=== PATIENT | female | born 1945 | race Caucasian/White ===

== ENCOUNTER 2024-04-28 07:10 | Emergency (ER) | payer MEDICARE, SELFPAY ==
[2024-04-28 07:18] VITALS: BP 128/72; PULSE 84; O2SAT 100
[2024-04-28 07:20] VITALS: BP 138/51; PULSE 64; RESP 20; TEMP 36.9; O2SAT 98; BMI 21.4
--- NOTE | 2024-04-28 07:27 | ECG_ITS ---
Test Reason : AMS Blood Pressure : */* mmHG Vent. Rate : 60 BPM Atrial Rate : 60 BPM P-R Int : 148 ms QRS Dur : 70 ms QT Int : 404 ms P-R-T Axes : 9 -38 63 degrees QTcB Int : 404 ms Normal sinus rhythm Left axis deviation Abnormal ECG No previous ECGs available Referred By: Nakia To Electronically Signed By: Terrell Kearns
--- NOTE | 2024-04-28 07:33 | ED_ITS ---
HPI - Psych General Chief Complaint: Altered Mental Status Stated Complaint: UTI Time Seen by Provider: 04/28/24 07:11 Source: patient, EMS and old records reviewed Mode of arrival: EMS Limitations: other (advanced dementia) History of Present Illness ED Provider: ERICA HPI Narrative: 78 yo female advanced dementia, UTI, HTN, HLD, PVD who comes from [facility] with c/o agitation with staff. Staff also noted strong urine odor. The patient is calm and cooperative she has no complaints on arrival and states I didn't do what they wanted. She is agreeable to labs and urine study. just admitted from april 08 to [facility] yesterday - initially admitted for UTI then was placed yesterday finally after prolonged search MD complaint: other Onset (ago): day(s) (1) Duration: resolved prior to arrival History of same: Yes Relieving factors: none Exacerbating factors: other (new facility placement) Context: other Associated psychiatric symptoms: none Associated symptoms: denies other symptoms Treatments prior to arrival: none Related Data Previous Rx's ?Medication ?Instructions ?Recorded cefuroxime axetil 250 mg tablet 250 mg PO BID 7 days #13 tabs 04/28/24 Allergies Allergy/AdvReac Type Severity Reaction Status Date / Time ciprofloxacin Allergy Unknown Verified 04/28/24 07:25 codeine Allergy Unknown Verified 04/28/24 07:25 haloperidol [From Haldol] Allergy Unknown Verified 04/28/24 07:25 oxycodone Allergy Unknown Verified 04/28/24 07:25 risedronate sodium Allergy Unknown Verified 04/28/24 07:25 [From Actonel] tetracycline Allergy Unknown Verified 04/28/24 07:25 trazodone Allergy Unknown Verified 04/28/24 07:25 Review of Systems 2 Review of Systems: ROS unable to be obtained due to altered mental status [facility] Past Medical History Attestation statement: The following information was validated with the patient. Source: old records reviewed Medical History PVD (peripheral vascular disease) Diabetes Diverticulosis Hyperlipidemia HTN (hypertension) UTI (urinary tract infection) Dementia Social History Social History (Updated 04/28/24 @ 07:38 by Nakia To DO) Patient Tobacco Use Status: Tobacco use Unknown Advance Directives: No Advance Directives Information Provided: No Physical Exam 2 Vital Signs: Vital Signs: Last Vital Signs Temp 97.7 F 04/28/24 08:00 Pulse 63 04/28/24 08:00 Resp 16 04/28/24 08:00 BP 108/51 L 04/28/24 08:00 Pulse Ox 98 04/28/24 08:00 O2 Del Method Room Air 04/28/24 08:00 BMI result Body Mass Index 21.4 Appearance: Alert. Oriented X to person. No acute distress. Eyes: Pupils equal, round and reactive to light. ENT: Pharynx normal. Speech slightly stuttered and tangential to different subjects, aphasia Neck: Normal inspection. Neck supple. CVS: Normal heart rate and rhythm. Pulses normal. Respiratory: No respiratory distress. Breath sounds normal. Abdomen: Soft and non-tender. Skin: Skin warm and dry. Normal skin color. Normal skin turgor. Extremities: No lower extremity edema. Neuro: Oriented X 1. No motor deficit. No sensory deficit. CN2-12 intact Medical Decision Making Medical Decision Making [facility] Narrative: 78 yo female advanced dementia, UTI, HTN, HLD, PVD who comes from [facility] with c/o agitation after newly placed there yesterday on arrival here she is calm and cooperative. She just left prolonged bedsearch at [facility] for placement. At this time labs, UA ordered. Daughter aware states her presentation is at baseline including her aphasia Differential Diagnosis Differential Diagnoses: The differential diagnosis associated with the presentation includes dementia with recent change in scenery causing behavioral issues, lyte abnormality, UTI Admission/Observation Consideration of admission/observation: Escalation of care including admission/observation considered not toxic, + UA, will start on ceftin eating Lab Data [facility] Lab Attestation statement: I reviewed the patient's lab results. 04/28/24 07:44 04/28/24 07:44 Labs: Lab Results 04/28/24 04/28/24 Range/Units 07:44 08:54 WBC 6.7 (4.8-10.8) X10*3/uL RBC 4.63 (4.20-5.50) X10*6/uL Hgb 13.9 (12.0-16.0) g/dl Hct 41.3 (37.0-47.0) % MCV 89.2 (80.0-98.0) fL MCH 30.0 (27.0-33.0) pg MCHC 33.7 (31.0-35.0) g/dl RDW 12.6 (11.0-16.0) % Plt Count 174 (160-400) X10*3/uL MPV 10.5 (9.4-12.3) fL Immature Gran % (Auto) 0.9 H (0.0-0.4) % Neut % (Auto) 64.4 (45-73) % Lymph % (Auto) 17.3 L (20-40) % [place] % (Auto) 15.5 H (2-11) % Eos % (Auto) 1.2 (0-4) % Baso % (Auto) 0.7 (0-2) % Lymph # (Auto) 1.2 (1.2-4.9) X10*3/uL [place] # (Auto) 1.0 (0.1-1.2) X10*3/uL Eos # (Auto) 0.1 (0.0-0.4) X10*3/uL Baso # (Auto) 0.1 (0.0-0.2) X10*3/uL Abs Immat Gran (auto) 0.06 H (0.00-0.03) X10*3/uL Absolute Neuts (auto) 4.3 (2.0-8.3) x10*3/uL Absolute Nucleated RBC 0.000 (0.0-0.012) X10*3/uL Nucleated RBC % (auto) 0.0 (0.0-0.2) /100WBC Sodium 143 (135-145) mmol/L Potassium 3.9 (3.3-5.1) mmol/L Chloride 108 (96-108) mmol/L Carbon Dioxide 30 H (22-29) mmol/L Anion Gap 9 L (12-20) BUN 23 H (9-16) mg/dL Creatinine 0.76 (0.5-1.4) mg/dL Estim Creat Clear Calc 54.8 Estimated GFR > 60 Random Glucose 108 (60-115) mg/dL Calcium 9.9 (8.4-10.2) mg/dL Magnesium 2.1 (1.6-2.6) mg/dL Urine Color Yellow Urine Appearance Turbid Urine pH 5.5 (5.0-9.0) Ur Specific [place] 1.025 (1.005-1.025) Urine Protein Trace (Neg-Trace) mg/dL Urine Glucose (UA) Negative (Negative) mg/dL Urine Ketones Trace (Negative) mg/dL Urine Blood Trace H (Negative) Urine Nitrite Negative (Negative) Ur Leukocyte Esterase Large (3+) H (Negative) Urine RBC 0-2 (0-2) /HPF Urine WBC >50 H (0-5) /HPF Ur Squamous Epith Cells 3-5 (0-2) /HPF Urine Bacteria 4+ (None Seen) Hyaline Casts 0-2 (0-2) /LPF Independent Interpretation I performed an independent interpretation of an: EKG Interpretation: Rate: 60 Rhythm: NSR [place]: left Normal P waves. Normal JACQUI. Normal QRS complex. ST T wave : flat t waves aVL, no SIMONA qTC: 404 prior studies: no prior The study has been interpreted contemporaneously by me. . Independent Historian Clinical information obtained from an independent historian. History obtained from or confirmed by: EMS and Other (daughter) External Record Review External record reviewed: Outpatient record Prescription Management I considered prescription management with: Antibiotic Discharge Plan Discharge Clinical Impression: Acute UTI Dementia Qualifiers: Dementia type: Alzheimer's Alzheimer's disease onset: unspecified onset D ementia severity: severe Dementia behavioral or psychological symptom: with other behavioral disturbance Qualified Code(s): G30.9 - Alzheimer's disease, unspecified Patient Disposition: Xfer SNF Instructions: Urinary Tract Infection in Women (ED) Additional Instructions: labs reassuring ate breakfast calm and cooperative given first dose of ceftin here should be on 250mg BID for 7 days return for any worsening symptoms or concerns. Prescriptions: New cefuroxime axetil 250 mg tablet 250 mg PO BID 7 Days Qty: 13 0RF Print Language: Luxembourger
[2024-04-28 07:47] LABS: MANUAL DIFF FLAG NO
[2024-04-28 07:50] LABS: Basophils Absolute Auto 0.1 X10*3/uL (0.0-0.2); Basophils Percent Auto 0.7 % (0-2); Eosinophils Absolute Auto 0.1 X10*3/uL (0.0-0.4); Eosinophils Percent Auto 1.2 % (0-4); Hematocrit 41.3 % (37.0-47.0); Hemoglobin 13.9 g/dl (12.0-16.0); Imm Gran Abs Auto 0.06 X10*3/uL (0.00-0.03); Imm Gran Pct Auto 0.9 % (0.0-0.4); Lymphocytes Absolute Auto 1.2 X10*3/uL (1.2-4.9); Lymphocytes Percent Auto 17.3 % (20-40); Mean Corpuscular HGB Conc 33.7 g/dl (31.0-35.0); Mean Corpuscular Volume 89.2 fL (80.0-98.0); Mean Platelet Volume 10.5 fL (9.4-12.3); Monocytes Percent Auto 15.5 % (2-11); Neutrophils Absolute Auto 4.3 x10*3/uL (2.0-8.3); Neutrophils Percent Auto 64.4 % (45-73); Platelet Count 174 X10*3/uL (160-400); Red Blood Count 4.63 X10*6/uL (4.20-5.50); Red Cell Distribution Width 12.6 % (11.0-16.0); White Blood Count 6.7 X10*3/uL (4.8-10.8)
[2024-04-28 08:00] VITALS: BP 108/51; PULSE 63; RESP 16; TEMP 36.5; O2SAT 98
[2024-04-28 08:07] LABS: Anion Gap 9 (12-20); Blood Urea Nitrogen 23 mg/dL (9-16); Calcium 9.9 mg/dL (8.4-10.2); Carbon Dioxide 30 mmol/L (22-29); Chloride 108 mmol/L (96-108); Creatinine Clr Calc Pharmacy 54.8; Estimated Glomerular Filt Rate > 60; Glucose Random 108 mg/dL (60-115); Magnesium 2.1 mg/dL (1.6-2.6); Potassium 3.9 mmol/L (3.3-5.1); Sodium 143 mmol/L (135-145)
[2024-04-28 08:59] LABS: Appearance Urine Turbid; Color Urine Yellow; Glucose Urine UA Negative (Negative); Leukocyte Esterase Urine Large (3+) (Negative); Nitrite Urine Negative (Negative); PH 5.5 (5.0-9.0); Specific Gravity - Urine 1.025 (1.005-1.025); UMIC TRIGGER UACC YES; Urine Blood Trace (Negative); Urine Ketones Trace mg/dL (Negative); Urine Protein Trace mg/dL (Neg-Trace)
[2024-04-28 09:03] LABS: Bacteria Urine 4+ (None Seen); Hyaline Casts Urine 0-2 /LPF (0-2); RBC Urine 0-2 /HPF (0-2); UACC Culture Trigger YES; WBC Urine >50 /HPF (0-5)
[2024-04-28] MEDS: cefuroxime axetiL 250 MG TABLET PO (09:17)
[2024-04-28 09:55] VITALS: BP 152/60; PULSE 67; RESP 16; TEMP 36.4; O2SAT 99
--- NOTE | 2024-04-28 09:58 | PC.NURSE ---
patient has remained calm and cooperative during ED visit. patient is sitting in recliner watching tv. patient fed breakfast, ambulates with steady gait. medicated per APR
--- NOTE | 2024-04-28 10:16 | PC.NURSE ---
patient report given to zoey at [facility], report given to ems.
== END 2024-04-28 10:18 | disposition skilled nursing facility (03) ==
PROVIDERS: Emergency Provider Emergency Medicine; PCP Family Medicine
DX: N39.0 Urinary tract infection, site not specified (principal); G30.9 Alzheimer's disease, unspecified; F02.C11 Dementia in other diseases classified elsewhere, severe, with agitation; E11.9 Type 2 diabetes mellitus without complications; I10 Essential (primary) hypertension; E78.5 Hyperlipidemia, unspecified; Z87.891 Personal history of nicotine dependence
CPT/HCPCS: 36415; 80048; 81001; 83735; 85025; 87086; 87088; 87186; 93005; 99283; 99284

== ENCOUNTER → 2024-04-28 07:27 | Outpatient (BNV) | payer MEDICARE, SELFPAY | PROVIDERS: Emergency Provider Emergency Medicine; PCP Family Medicine; Visit Provider Internal Medicine Cardiovascular Disease | DX: R94.31 Abnormal electrocardiogram [ECG] [EKG] (principal); R41.82 Altered mental status, unspecified | CPT/HCPCS: 93010 ==

== ENCOUNTER 2024-05-01 16:13 | Emergency (ER) | payer MEDICARE, SELFPAY ==
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
[2024-05-01 16:22] VITALS: BP 116/49; BP 131/64; PULSE 62; PULSE 66; RESP 16; TEMP 36.1; O2SAT 97; BMI 24.8
--- NOTE | 2024-05-01 16:48 | ECG_ITS ---
Test Reason : FALL Blood Pressure : */* mmHG Vent. Rate : 61 BPM Atrial Rate : 61 BPM P-R Int : 162 ms QRS Dur : 74 ms QT Int : 410 ms P-R-T Axes : 39 -28 56 degrees QTcB Int : 412 ms Normal sinus rhythm Normal ECG When compared with ECG of 28-Apr-2024 07:36, No significant change was found Referred By: Seth Worthington Electronically Signed By: LIYAH WRIGHT MD
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
[2024-05-01 17:30] LABS: MANUAL DIFF FLAG NO
[2024-05-01 17:33] LABS: Basophils Percent Auto 0.6 % (0-2); Eosinophils Absolute Auto 0.1 X10*3/uL (0.0-0.4); Eosinophils Percent Auto 1.2 % (0-4); Hematocrit 42.7 % (37.0-47.0); Hemoglobin 14.2 g/dl (12.0-16.0); Imm Gran Abs Auto 0.03 X10*3/uL (0.00-0.03); Imm Gran Pct Auto 0.5 % (0.0-0.4); Lymphocytes Absolute Auto 1.3 X10*3/uL (1.2-4.9); Lymphocytes Percent Auto 20.2 % (20-40); Mean Corpuscular HGB Conc 33.3 g/dl (31.0-35.0); Mean Corpuscular Volume 90.3 fL (80.0-98.0); Mean Platelet Volume 10.7 fL (9.4-12.3); Monocytes Absolute Auto 0.9 X10*3/uL (0.1-1.2); Monocytes Percent Auto 13.6 % (2-11); Neutrophils Absolute Auto 4.1 x10*3/uL (2.0-8.3); Neutrophils Percent Auto 63.9 % (45-73); Platelet Count 174 X10*3/uL (160-400); Red Blood Count 4.73 X10*6/uL (4.20-5.50); Red Cell Distribution Width 12.9 % (11.0-16.0); White Blood Count 6.5 X10*3/uL (4.8-10.8)
[2024-05-01 17:55] LABS: Alanine Aminotransferase 50 U/L (0-31); Alkaline Phosphatase 55 U/L (39-117); Anion Gap 11 (12-20); Aspartate Amino Transferase 54 U/L (5-31); Bilirubin Total 0.7 mg/dL (0.0-1.0); Blood Urea Nitrogen 14 mg/dL (9-16); Calcium 9.9 mg/dL (8.4-10.2); Carbon Dioxide 29 mmol/L (22-29); Chloride 108 mmol/L (96-108); Creatinine Clr Calc Pharmacy 69.3; Estimated Glomerular Filt Rate > 60; Glucose Random 107 mg/dL (60-115); Lipase 19 U/L (8-78); Potassium 3.6 mmol/L (3.3-5.1); Sodium 144 mmol/L (135-145)
[2024-05-01 18:00] LABS: B Type Natriuretic Peptide 73 pg/mL (<100)
[2024-05-01 18:08] LABS: Influenza A PCR NEGATIVE (Negative); Influenza B PCR NEGATIVE (Negative); Resp Syncy Virus RNA Qual PCR NEGATIVE (Negative); SARS COV2 PCR INHOUSE NEGATIVE (Negative)
[2024-05-01 21:40] VITALS: RESP 16
[2024-05-02 02:10] VITALS: BP 114/54; PULSE 62; RESP 16; TEMP 36.4; O2SAT 98
[2024-05-02 04:15] VITALS: BP 114/54; PULSE 62; RESP 16; TEMP 36.4; O2SAT 98
== END 2024-05-02 03:32 | disposition home or self-care (01) ==
PROVIDERS: Physician Assistant; Emergency Provider Emergency Medicine; PCP Family Medicine
DX: S09.90XA Unspecified injury of head, initial encounter (principal); W19.XXXA Unspecified fall, initial encounter; Y93.9 Activity, unspecified; Y92.89 Other specified places as the place of occurrence of the external cause; Y99.9 Unspecified external cause status; Z03.818 Encounter for observation for suspected exposure to other biological agents ruled out
CPT/HCPCS: 0241U; 70450; 72125; 80053; 83690; 83880; 85025; 93005; 99284

== ENCOUNTER → 2024-05-01 16:48 | Outpatient (BNV) | payer MEDICARE, SELFPAY | PROVIDERS: Emergency Provider Emergency Medicine; Visit Provider Radiology Diagnostic Radiology | DX: S09.90XA Unspecified injury of head, initial encounter (principal); W19.XXXA Unspecified fall, initial encounter | CPT/HCPCS: 70450; 72125 ==

== ENCOUNTER → 2024-05-01 16:48 | Outpatient (BNV) | payer MEDICARE, SELFPAY | PROVIDERS: Emergency Provider Emergency Medicine; PCP Family Medicine; Visit Provider Internal Medicine Cardiovascular Disease | DX: S09.90XA Unspecified injury of head, initial encounter (principal); W19.XXXA Unspecified fall, initial encounter | CPT/HCPCS: 93010 ==

== ENCOUNTER 2024-05-18 08:32 | Inpatient (IN) | payer MEDICARE, SELFPAY ==
[2024-05-18 08:59] VITALS: BP 153/56; PULSE 70; RESP 18; TEMP 36.1; O2SAT 100; BMI 19.9
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
[2024-05-18 09:33] LABS: MANUAL DIFF FLAG NO
[2024-05-18 09:37] LABS: Basophils Absolute Auto 0.1 X10*3/uL (0.0-0.2); Basophils Percent Auto 0.8 % (0-2); Eosinophils Absolute Auto 0.1 X10*3/uL (0.0-0.4); Eosinophils Percent Auto 1.7 % (0-4); Hematocrit 39.9 % (37.0-47.0); Hemoglobin 13.3 g/dl (12.0-16.0); Imm Gran Abs Auto 0.02 X10*3/uL (0.00-0.03); Imm Gran Pct Auto 0.3 % (0.0-0.4); Lymphocytes Absolute Auto 0.8 X10*3/uL (1.2-4.9); Lymphocytes Percent Auto 13.9 % (20-40); Mean Corpuscular HGB Conc 33.3 g/dl (31.0-35.0); Mean Corpuscular Hemoglobin 30.3 pg (27.0-33.0); Mean Corpuscular Volume 90.9 fL (80.0-98.0); Mean Platelet Volume 10.2 fL (9.4-12.3); Monocytes Absolute Auto 0.6 X10*3/uL (0.1-1.2); Monocytes Percent Auto 10.1 % (2-11); Neutrophils Absolute Auto 4.3 x10*3/uL (2.0-8.3); Neutrophils Percent Auto 73.2 % (45-73); Platelet Count 175 X10*3/uL (160-400); Red Blood Count 4.39 X10*6/uL (4.20-5.50); Red Cell Distribution Width 13.6 % (11.0-16.0); White Blood Count 5.9 X10*3/uL (4.8-10.8)
[2024-05-18 09:41] LABS: Ammonia 31 umol/L (13-55)
[2024-05-18 10:00] LABS: Alanine Aminotransferase 23 U/L (0-31); Albumin Level 3.6 g/dL (3.5-5.0); Alkaline Phosphatase 44 U/L (39-117); Anion Gap 10 (12-20); Aspartate Amino Transferase 34 U/L (5-31); Blood Urea Nitrogen 15 mg/dL (9-16); Calcium 9.6 mg/dL (8.4-10.2); Carbon Dioxide 28 mmol/L (22-29); Chloride 110 mmol/L (96-108); Creatinine Clr Calc Pharmacy 55.8; Estimated Glomerular Filt Rate > 60; Glucose Random 111 mg/dL (60-115); Potassium 3.8 mmol/L (3.3-5.1); Sodium 144 mmol/L (135-145); Total Protein 5.9 g/dL (6.5-8.0)
[2024-05-18 10:12] LABS: Influenza A PCR NEGATIVE (Negative); Influenza B PCR NEGATIVE (Negative); Resp Syncy Virus RNA Qual PCR NEGATIVE (Negative); SARS COV2 PCR INHOUSE NEGATIVE (Negative)
--- NOTE | 2024-05-18 10:16 | PC.NURSE ---
straight catheterization performed. 150ml of dark, foul smelling urine noted immediately post output. pt did not tolerate well. increased agitated/aggression. multiple staff members needed during intervention. pt turned/repositioned s/p catheterization. specimen obtained/sent to lab.
[2024-05-18 10:22] LABS: Appearance Urine Clear; Color Urine Dark Yellow; Glucose Urine UA Negative (Negative); Leukocyte Esterase Urine Moderate (2+) (Negative); Nitrite Urine Positive (Negative); Specific Gravity - Urine 1.015 (1.005-1.025); UMIC TRIGGER UACC YES; Urine Blood Trace (Negative); Urine Ketones Trace mg/dL (Negative); Urine Protein Negative (Neg-Trace)
--- NOTE | 2024-05-18 10:28 | PHA.MEDREC ---
Addendum entered by Gogo Carbajal mine 05/18/24 10:37: REVIEWED Original Note: Pharmacy Consult ? Medication Reconciliation Pharmacy has completed the medication reconciliation. Utilized list from [facility] to confirm med list.
[2024-05-18] MEDS: cefuroxime axetiL 250 MG TABLET PO (10:40)
[2024-05-18 10:47] LABS: Bacteria Urine 4+ (None Seen); Hyaline Casts Urine 0-2 /LPF (0-2); RBC Urine 0-2 /HPF (0-2); Squamous Epithelial Cell Urine 0-2 /HPF (0-2); UACC Culture Trigger YES; WBC Urine >50 /HPF (0-5)
[2024-05-18] MEDS: Nitrofurantoin Monohyd/M-Cryst 100 MG CAPSULE PO (11:14)
--- OUTSIDE RECORDS SUMMARY | 2024-05-18 11:15 | XMS_ITS | Clinical Summary ---
Author Organization [address] Address [address] [place] [address] Phone Care Team Providers Care Metal Sander And Finisher Name Role Phone Hafsa Trore ARIEL Primary Care Provider +1- [phone] Medications amLODIPine (NORVASC) 5 mg tablet TAKE ONE TABLET BY MOUTH EVERY DAY 90 tablet 03/30/2024 Active Encounters Date Type Department Care Team Description 05/17/2024 Lab Requisition [facility] [address] [place] [id number] Carlos A Orozco MD Unspecified dementia, unspecified severity, without behavioral disturbance, psychotic disturbance, mood disturbance, and anxiety (CMS/HCC); Essential (primary) hypertension; Atherosclerotic heart disease of [place] coronary artery without angina pectoris 05/10/2024 Lab Requisition [facility] [address] [place] [phone] Carlos A Orozco MD Unspecified dementia, unspecified severity, without behavioral disturbance, psychotic disturbance, mood disturbance, and anxiety (CMS/HCC); Essential (primary) hypertension; Atherosclerotic heart disease of [place] coronary artery without angina pectoris 05/03/2024 Lab Requisition [facility] [address] [place] [address] Carlos A Orozco MD Unspecified dementia, unspecified severity, without behavioral disturbance, psychotic disturbance, mood disturbance, and anxiety (CMS/HCC); Essential (primary) hypertension; Atherosclerotic heart disease of [place] coronary artery without angina pectoris from Last 3 Months Surgical History Surgery Date Site/Laterality Comments CARDIAC CATHETERIZATION PROCEDURE: HISTORICAL CARDIAC CATH ANGIOPLASTY PROCEDURE: HISTORICAL ANGIOPLASTY W/STENT BLADDER SUSPENSION PROCEDURE: HISTORICAL BLADDER SUSPENSION CATARACT EXTRACTION Bilateral PROCEDURE: HISTORICAL CATARACT REMOVAL CHOLECYSTECTOMY PROCEDURE: HISTORICAL CHOLECYSTECTOMY HYSTERECTOMY PROCEDURE: HISTORICAL TOTAL HYSTERECTOMY WITH BSO COLONOSCOPY 11/11/2017 PROCEDURE: HISTORICAL COLONOSCOPY OTHER SURGICAL HISTORY 02/16/2013 PROCEDURE: COLONOSCOPY FLEX-PROX SPLEN FLEX; W/STENT PLCMT HYSTERECTOMY PROCEDURE: HISTORICAL HYSTERECTOMY Medical History Medical History Date Comments Family history of cardiovascular disease DX:Family history of cardiovascular disease Chronic ischemic heart disease D X:Chronic ischemic heart disease Essential hypertension DX:Essent ial hypertension Hypercholesterolemia DX:Hypercho lesterolemia Osteoporosis DX:Osteoporosis Diabetes (CMS/HCC) DX:Diabetes ( HCC) Colon polyps DX:Colon polyps Fatty liver DX:Fatty liver Rosacea DX:Rosacea Urinary incontinence DX:Urinary incontinence Angina pectoris DX:Angina pector is (HCC) Diverticulosis DX:Diverticulosi s Glaucoma DX:Glaucoma Tubular adenoma of colon DX:Tubu lar adenoma of colon Family History Medical History Relation Name Comments No Known Problems Brother Thyroid disease Mother Relation Name Status Comments Brother Alive Father Mother Social History Tobacco Use Types Packs/Day Years Used Date Smoking Tobacco: Former Cigarettes Q uit: 02/10/2012 Smokeless Tobacco: Never Alcohol Use Standard Drinks/Week Comments Yes 2 (1 standard drink = 0.6 oz pur e alcohol) Comments Unknown Sex and Gender Information Value Date Recorded Sex Assigned at Not on file Legal Sex Female 1:23 PM EST Gender Identity Not on file Sexual Orientation Not on file Obstetrics History Last Filed Vital Signs Vital Sign Reading Time Taken Comments Blood Pressure 138/80 05/04/2023 9:58 AM EDT Sitting L Arm Pulse 77 05/04/2023 9:58 AM EDT Temperature - - Respiratory Rate - - Oxygen Saturation - - Inhaled Oxygen Concentration - - Weight 66.8 kg (147 lb 4.8 oz) 05/04/2023 9:58 AM EDT Height 167.6 cm (5' 6 ) 05/04/2023 9:58 AM EDT Body Mass Index 23.77 05/04/2023 9:58 AM EDT Plan of Treatment Health Maintenance Due Date Last Done Comments Diabetes: Annual Foot Exam 12/26/1955 Diabetes: Annual Retina Eye Exam 12/26/1955 Zoster Vaccines (2 of 3) 11/06/2012 09/11/2012 Pneumococcal Vaccine: 50+ Years (2 of 2 - PCV) 12/10/2013 12/10/2012 Cholesterol Screening (Lipid Panel) 01/07/2022 Depression Screening 01/07/2022 Falls Risk Assessment 01/07/2022 Hepatitis C Screening 01/07/2022 Medicare Annual Wellness Visit 01/07/2022 Osteoporosis Screening (Bone Density Screening) 01/07/2022 Social Influencers of Health Screening 01/07/2022 DTaP,Tdap,and Td Vaccines (2 - Td or Tdap) 12/10/2022 12/10/2012 Diabetes: Annual Urine Albumin-Creatinine Ratio (uACR) 05/05/2024 Diabetes: Blood Sugar Control Test (HGBA1C) 05/05/2024 Diabetes: Annual GFR (Glomerular Filtration Rate) 05/11/2025 05/11/2024, 05/04/2024 Hypertension/CHF/CAD Annual BMP Blood Test 05/11/2025 05/11/2024, 05/04/2024 RSV Immunization Adult Patients Completed 10/10/2022 COVID-19 Vaccine Completed 10/28/2023, 04/2022, 05/16/2021, Additional history exists Influenza Vaccine Completed 10/28/2023, , 11/08/2021, Additional history exists HIB Vaccines Aged Out No longer eligi ble based on patient's age to complete this topic HPV Vaccines Aged Out No longer eligi ble based on patient's age to complete this topic Hepatitis A Vaccines Aged Out No long er eligible based on patient's age to complete this topic Hepatitis B Vaccines Aged Out No long er eligible based on patient's age to complete this topic IPV Vaccines Aged Out No longer eligi ble based on patient's age to complete this topic MMR Vaccines Aged Out No longer eligi ble based on patient's age to complete this topic Meningococcal ACWY Vaccine Aged Out N o longer eligible based on patient's age to complete this topic Meningococcal B Vaccine Aged Out No l onger eligible based on patient's age to complete this topic RSV Immunization Patients Under 20 months Aged Out No longer eligible based on patient's age to complete this topic Varicella Vaccines Aged Out No longer eligible based on patient's age to complete this topic Procedures Procedure Name Priority Date/Time Associated Diagnosis Comments BASIC METABOLIC PANEL Routine 05/11/2024 6:48 AM EDT Unspecified dementia, unspecified severity, without behavioral disturbance, psychotic disturbance, mood disturbance, and anxiety (CMS/HCC) Essential (primary) hypertension Atherosclerotic heart disease of [place] coronary artery without angina pectoris COMPLETE BLOOD COUNT Routine 05/11/2024 6:48 AM EDT Unspecified dementia, unspecified severity, without behavioral disturbance, psychotic disturbance, mood disturbance, and anxiety (CMS/HCC) Essential (primary) hypertension Atherosclerotic heart disease of [place] coronary artery without angina pectoris BASIC METABOLIC PANEL Routine 05/04/2024 8:13 AM EDT Unspecified dementia, unspecified severity, without behavioral disturbance, psychotic disturbance, mood disturbance, and anxiety (CMS/HCC) Essential (primary) hypertension Atherosclerotic heart disease of [place] coronary artery without angina pectoris COMPLETE BLOOD COUNT Routine 05/04/2024 8:13 AM EDT Unspecified dementia, unspecified severity, without behavioral disturbance, psychotic disturbance, mood disturbance, and anxiety (CMS/HCC) Essential (primary) hypertension Atherosclerotic heart disease of [place] coronary artery without angina pectoris from Last 3 Months Results * (ABNORMAL) Complete blood count (05/11/2024 6:48 AM EDT) Only the most recent of2 resultswithin the time period is included. WBC 8.8 4.8 - 10.8 K/mcL LAB HEMETOLOGY METHOD 05/11/2024 12:44 PM [facility] RBC 4.90(H) 3.80 - 4.80 M/mcL LAB HEMETOLOGY METHOD 05/11/2024 12:44 PM T [facility] Hemoglobin 14.5 11.5 - 16.0 g/dL LAB HEMETOLOGY METHOD 05/11/2024 12:44 PM [facility] Hematocrit 46.0 35.0 - 47.0 % LAB HEMETOLOGY METHOD 05/11/2024 12:44 PM [facility] MCV 94.7 79.0 - 98.0 FL LAB HEMETOLOGY METHOD 05/11/2024 12:44 PM EDT [facility] MCH 29.8 27.0 - 32.0 pcg LAB HEMETOLOGY METHOD 05/11/2024 12:44 PM EDT [facility] MCHC 31.5(L) 32.0 - 37.0 g/dL LAB HEMETOLOGY METHOD 05/11/2024 12:44 PM EDT [facility] RDW 13.6 11.0 - 15.0 % LAB HEMETOLOGY METHOD 05/11/2024 12:44 PM EDT [facility] Platelets 251 130 - 400 K/mcL LAB HEMETOLOGY METHOD 05/11/2024 12:44 PM EDT [facility] MPV 11.1(H) 7.0 - 11.0 FL LAB HEMETOLOGY METHOD 05/11/2024 12:44 PM EDT [facility] NRBC 0.0 <1.0 % LAB HEMETOLOGY METHOD 05/11/2024 12:44 PM EDT [facility] NRBC Absolute 0.00 <0.10 K/mcL LAB HEMETOLOGY METHOD 05/11/2024 12:44 PM EDT [facility] Blood Venous blood specimen / Unknown Venipuncture / Unknown 05/11/2024 6:48 AM EDT 05/11/2024 12:10 PM EDT us Carlos A Orozco MD LAB BLOOD ORDERABLES Final Resul t [facility] [address] [place] [address], * (ABNORMAL) Basic metabolic panel (05/11/2024 6:48 AM EDT) Only the most recent of2 resultswithin the time period is included. Sodium 141 133 - 145 mmol/L LAB CHEMISTRY METHOD 05/11/2024 1:07 PM EDT [facility] Potassium 3.6 3.5 - 5.5 mmol/L LAB CHEMISTRY METHOD 05/11/2024 1:07 PM [facility] Chloride 105 96 - 110 mmol/L LAB CHEMISTRY METHOD 05/11/2024 1:07 PM [facility] CO2 27 21 - 32 mmol/L LAB CHEMISTRY METHOD 05/11/2024 1:07 PM [facility] Anion Gap 9 3 - 11 LAB CHEMISTRY METHOD 05/11/2024 1:07 PM [facility] Glucose 101(H) 70 - 100 mg/dL LAB CHEMISTRY METHOD 05/11/2024 1:07 PM [facility] BUN 17 5 - 25 mg/dL LAB CHEMISTRY METHOD 05/11/2024 1:07 PM [facility] Creatinine 0.64 0.50 - 1.10 mg/dL LAB CHEMISTRY METHOD 05/11/2024 1:07 PM [facility] eGFR 91 >=60 mL/min/1. 73m2 LAB CHEMISTRY METHOD 05/11/2024 1:07 PM [facility] Comment:Calculation based on the??Chronic Kidney Disease Epidemiology Collaboration (CKD-EPI) equation refit??without adjustment for race. BUN/Creatinine Ratio 26.6 LAB CHEMISTRY METHOD 05/11/2024 1:07 PM [facility] Calcium 10.1 8.5 - 10.5 mg/dL LAB CHEMISTRY METHOD 05/11/2024 1:07 PM [facility] Blood Venous blood specimen / Unknown Venipuncture / Unknown 05/11/2024 6:48 AM EDT 05/11/2024 12:10 PM EDT us Carlos A Orozco MD LAB BLOOD ORDERABLES Final Resul t [facility] [address] [place] [address], [place] [phone] from Last 3 Months Insurance MEDICARE Care Teams Metal Sander And Finisher Relationship Specialty Start Date End Date Hafsa Torre NP [address] [place] [address] PCP - General 06/17/21
--- OUTSIDE RECORDS SUMMARY | 2024-05-18 11:15 | XMS_ITS | Encounter Summary ---
Author Organization [facility] [place] Address [id number] [place] [address] Care Team Providers Care Vehicle Damage Appraiser Name Role Phone Hafsa Torre RESIDENCE COUNSELOR Primary Care Provider +1- [phone] Encounter Details Date Type Department Care Team (Late st Contact Info) Description 05/17/2024 Lab Requisition [facility] - Main Lab [address] [facility] [place] [address] Carlos A Orozco MD [address] [place] [address] [address] [place], [address] Unspecified dementia, unspecified severity, without behavioral disturbance, psychotic disturbance, mood disturbance, and anxiety (CMS/HCC); Essential (primary) hypertension; Atherosclerotic heart disease of [place] coronary artery without angina pectoris Social History Tobacco Use Types Packs/Day Years [...] on file Sexual Orientation Not on file documented as of this encounter Plan of Treatment Scheduled Orders Name Type Priority Associated Diagnoses Orde r Schedule Complete blood count Lab Routine Unspecified dementia, unspecified severity, without behavioral disturbance, psychotic disturbance, mood disturbance, and anxiety (CMS/HCC) Essential (primary) hypertension Atherosclerotic heart disease of [place] coronary artery without angina pectoris Ordered: 05/17/2024 Basic metabolic panel Lab Routine Unspecified dementia, unspecified severity, without behavioral disturbance, psychotic disturbance, mood disturbance, and anxiety (CMS/HCC) Essential (primary) hypertension Atherosclerotic heart disease of [place] coronary artery without angina pectoris Ordered: 05/17/2024 documented as of this encounter Visit Diagnoses Diagnosis Unspecified dementia, unspecified severity, without behavioral disturbance, psychotic disturbance, mood disturbance, and anxiety (CMS/[facility]) Essential (primary) hypertension Unspecified essential hypertension Atherosclerotic heart disease of [place] coronary artery without angina pectoris documented in this encounter Care Teams Vehicle Damage Appraiser Relationship Specialty Start Date End Date Hafsa Torre NP [address] [place] [address] PCP - General 06/17/21 documented as of this encounter
--- OUTSIDE RECORDS SUMMARY | 2024-05-18 11:15 | XMS_ITS | Encounter Summary ---
Author Organization [facility] Address [address] [place] [address] Care Team Providers Care Food Sampler Name Role Phone Hafsa Torre STUDIO POTTER Primary Care Provider +1- [phone] Encounter Details Date Type Department Care Team (Late st Contact Info) Description 05/10/2024 Lab Requisition [facility] - [facility] Lab [address] [facility] [address] [place] [address] Carlos A Orozco MD [address] [place] [address] [address] [facility] [address] Unspecified dementia, unspecified severity, without behavioral disturbance, psychotic disturbance, mood disturbance, and anxiety (CMS/HCC); Essential (primary) hypertension; Atherosclerotic heart disease of [place] coronary artery without angina pectoris Social History [...] as of this encounter Plan of Treatment Not on file documented as of this encounter Procedures Procedure Name Priority Date/Time Associated Diagnosis Comments COMPLETE BLOOD COUNT Routine 05/11/2024 6:48 AM EDT Unspecified dementia, unspecified severity, without behavioral disturbance, psychotic disturbance, mood disturbance, and anxiety (CMS/HCC) Essential (primary) hypertension Atherosclerotic heart disease of [place] coronary artery without angina pectoris BASIC METABOLIC PANEL Routine 05/11/2024 6:48 AM EDT Unspecified dementia, unspecified severity, without behavioral disturbance, psychotic disturbance, mood disturbance, and anxiety (CMS/HCC) Essential (primary) hypertension Atherosclerotic heart disease of [place] coronary artery without angina pectoris documented in this encounter Results * (ABNORMAL) Basic metabolic panel (05/11/2024 6:48 AM EDT) Sodium 141 133 - 145 mmol/L LAB CHEMISTRY METHOD 05/11/2024 1:07 PM [facility] Potassium 3.6 3.5 - 5.5 mmol/L LAB CHEMISTRY METHOD 05/11/2024 1:07 PM [facility] Chloride 105 96 - 110 mmol/L LAB CHEMISTRY METHOD 05/11/2024 1:07 PM [facility] CO2 27 21 - 32 mmol/L LAB CHEMISTRY METHOD 05/11/2024 1:07 PM [facility] Anion Gap 9 3 - 11 LAB CHEMISTRY METHOD 05/11/2024 1:07 PM [facility] Glucose 101(H) 70 - 100 mg/dL LAB CHEMISTRY METHOD 05/11/2024 1:07 PM [facility] BUN 17 5 - 25 mg/dL LAB CHEMISTRY METHOD 05/11/2024 1:07 PM [facility] Creatinine 0.64 0.50 - 1.10 mg/dL LAB CHEMISTRY METHOD 05/11/2024 1:07 PM [facility] eGFR 91 >=60 mL/min/1. 73m2 LAB CHEMISTRY METHOD 05/11/2024 1:07 PM [facility] Comment:Calculation based on the??Chronic Kidney Disease Epidemiology Collaboration (CKD-EPI) equation refit??without adjustment for race. BUN/Creatinine Ratio 26.6 LAB CHEMISTRY METHOD 05/11/2024 1:07 PM [facility] Calcium 10.1 8.5 - 10.5 mg/dL LAB CHEMISTRY METHOD 05/11/2024 1:07 PM [facility] Blood Venous blood specimen / Unknown Venipuncture / Unknown 05/11/2024 6:48 AM EDT 05/11/2024 12:10 PM EDT us Carlos A Orozco MD LAB BLOOD ORDERABLES Final Resul t [facility] [address] [place] [address], * (ABNORMAL) Complete blood count (05/11/2024 6:48 AM EDT) WBC 8.8 4.8 - 10.8 K/mcL LAB HEMETOLOGY METHOD 05/11/2024 12:44 PM EDT [facility] RBC 4.90(H) 3.80 - 4.80 M/mcL LAB HEMETOLOGY METHOD 05/11/2024 12:44 PM EDT [facility] Hemoglobin 14.5 11.5 - 16.0 g/dL LAB HEMETOLOGY METHOD 05/11/2024 12:44 PM EDT [facility] Hematocrit 46.0 35.0 - 47.0 % LAB HEMETOLOGY METHOD 05/11/2024 12:44 PM EDT [facility] MCV 94.7 79.0 - 98.0 FL LAB HEMETOLOGY METHOD 05/11/2024 12:44 PM EDT [facility] MCH 29.8 27.0 - 32.0 pcg LAB HEMETOLOGY METHOD 05/11/2024 12:44 PM T [facility] MCHC 31.5(L) 32.0 - 37.0 g/dL LAB HEMETOLOGY METHOD 05/11/2024 12:44 PM EDT [facility] RDW 13.6 11.0 - 15.0 % LAB HEMETOLOGY METHOD 05/11/2024 12:44 PM EDT [facility] Platelets 251 130 - 400 K/mcL LAB HEMETOLOGY METHOD 05/11/2024 12:44 PM EDT [facility] MPV 11.1(H) 7.0 - 11.0 FL LAB HEMETOLOGY METHOD 05/11/2024 12:44 PM EDT [facility] NRBC 0.0 <1.0 % LAB HEMETOLOGY METHOD 05/11/2024 12:44 PM EDT [facility] NRBC Absolute 0.00 <0.10 K/mcL LAB HEMETOLOGY METHOD 05/11/2024 12:44 PM EDT [facility] Blood Venous blood specimen / Unknown Venipuncture / Unknown 05/11/2024 6:48 AM EDT 05/11/2024 12:10 PM EDT us Carlos A Orozco MD LAB BLOOD ORDERABLES Final Resul t [facility] [address] [place] [address], documented in this encounter Visit Diagnoses Diagnosis Unspecified dementia, unspecified severity, without behavioral disturbance, psychotic disturbance, mood disturbance, and anxiety (CMS/HCC) Essential (primary) hypertension Unspecified essential hypertension Atherosclerotic heart disease of [place] coronary artery without angina pectoris documented in this encounter Care Teams Food Sampler Relationship Specialty Start Date End Date Hafsa Torre NP [address] [place] [id number] PCP - General 06/17/21 documented as of this encounter
--- OUTSIDE RECORDS SUMMARY | 2024-05-18 11:15 | XMS_ITS | Encounter Summary ---
Author Organization [facility] Address [id number] [place] [address] Care Team Providers Care Investment Strategist Name Role Phone Hafsa Torre ELEVATOR INSPECTOR Primary Care Provider +1- [phone] Encounter Details Date Type Department Care Team (Late st Contact Info) Description 05/03/[address] [facility] - Main Lab [address] [facility] [place] [address] Carlos A Orozco MD [address] [place] [address] [address] [place], [address] Unspecified dementia, unspecified severity, without behavioral disturbance, psychotic disturbance, mood disturbance, and anxiety (CMS/HCC); Essential (primary) hypertension; Atherosclerotic heart disease of [place] coronary artery without angina pectoris Social History [...] Associated Diagnosis Comments COMPLETE BLOOD COUNT Routine 05/04/2024 8:13 AM EDT Unspecified dementia, unspecified severity, without behavioral disturbance, psychotic disturbance, mood disturbance, and anxiety (CMS/HCC) Essential (primary) hypertension Atherosclerotic heart disease of [place] coronary artery without angina pectoris BASIC METABOLIC PANEL Routine 05/04/2024 8:13 AM EDT Unspecified dementia, unspecified severity, without behavioral disturbance, psychotic disturbance, mood disturbance, and anxiety (CMS/HCC) Essential (primary) hypertension Atherosclerotic heart disease of [place] coronary artery without angina pectoris documented in this encounter Results * (ABNORMAL) Basic metabolic panel (05/04/2024 8:13 AM EDT) Sodium 141 133 - 145 mmol/L LAB CHEMISTRY METHOD 05/04/2024 1:09 PM [facility] Potassium 3.7 3.5 - 5.5 mmol/L LAB CHEMISTRY METHOD 05/04/2024 1:09 PM [facility] Chloride 106 96 - 110 mmol/L LAB CHEMISTRY METHOD 05/04/2024 1:09 PM [facility] CO2 29 21 - 32 mmol/L LAB CHEMISTRY METHOD 05/04/2024 1:09 PM [facility] Anion Gap 6 3 - 11 LAB CHEMISTRY METHOD 05/04/2024 1:09 PM [facility] Glucose 111(H) 70 - 100 mg/dL LAB CHEMISTRY METHOD 05/04/2024 1:09 PM [facility] BUN 16 5 - 25 mg/dL LAB CHEMISTRY METHOD 05/04/2024 1:09 PM [facility] Creatinine 0.74 0.50 - 1.10 mg/dL LAB CHEMISTRY METHOD 05/04/2024 1:09 PM [facility] eGFR 83 >=60 mL/min/1. 73m2 LAB CHEMISTRY METHOD 05/04/2024 1:09 PM [facility] Comment:Calculation based on the??Chronic Kidney Disease Epidemiology Collaboration (CKD-EPI) equation refit??without adjustment for race. BUN/Creatinine Ratio 21.6 LAB CHEMISTRY METHOD 05/04/2024 1:09 PM [facility] Calcium 9.6 8.5 - 10.5 mg/dL LAB CHEMISTRY METHOD 05/04/2024 1:09 PM [facility] Blood Venous blood specimen / Unknown Venipuncture / Unknown 05/04/2024 8:13 AM EDT 05/04/2024 10:46 AM EDT us Carlos A Orozco MD LAB BLOOD ORDERABLES Final Resul t [facility] [address] [place] [address], * (ABNORMAL) Complete blood count (05/04/2024 8:13 AM EDT) WBC 6.6 4.8 - 10.8 K/mcL LAB HEMETOLOGY METHOD 05/04/2024 10:58 AM EDT [facility] RBC 4.80 3.80 - 4.80 M/mcL LAB HEMETOLOGY METHOD 05/04/2024 10:58 AM EDT [facility] Hemoglobin 14.2 11.5 - 16.0 g/dL LAB HEMETOLOGY METHOD 05/04/2024 10:58 AM [facility] Hematocrit 45.1 35.0 - 47.0 % LAB HEMETOLOGY METHOD 05/04/2024 10:58 AM EDT [facility] MCV 94.7 79.0 - 98.0 FL LAB HEMETOLOGY METHOD 05/04/2024 10:58 AM EDT [facility] MCH 29.8 27.0 - 32.0 pcg LAB HEMETOLOGY METHOD 05/04/2024 10:58 AM [facility] MCHC 31.5(L) 32.0 - 37.0 g/dL LAB HEMETOLOGY METHOD 05/04/2024 10:58 AM [facility] RDW 13.1 11.0 - 15.0 % LAB HEMETOLOGY METHOD 05/04/2024 10:58 AM EDT [facility] Platelets 174 130 - 400 K/mcL LAB HEMETOLOGY METHOD 05/04/2024 10:58 AM EDT [facility] MPV 11.5(H) 7.0 - 11.0 FL LAB HEMETOLOGY METHOD 05/04/2024 10:58 AM EDT [facility] NRBC 0.0 <1.0 % LAB HEMETOLOGY METHOD 05/04/2024 10:58 AM EDT [facility] NRBC Absolute 0.00 <0.10 K/mcL LAB HEMETOLOGY METHOD 05/04/2024 10:58 AM EDT [facility] Blood Venous blood specimen / Unknown Venipuncture / Unknown 05/04/2024 8:13 AM EDT 05/04/2024 10:46 AM EDT us Carlos A Orozco MD LAB BLOOD ORDERABLES Final Resul t [facility] [address] [place] [address], documented in this encounter Visit Diagnoses Diagnosis Unspecified dementia, unspecified severity, without behavioral disturbance, psychotic disturbance, mood disturbance, and anxiety (CMS/HCC) Essential (primary) hypertension Unspecified essential hypertension Atherosclerotic heart disease of [place] coronary artery without angina pectoris documented in this encounter Care Teams Investment Strategist Relationship Specialty Start Date End Date Hafsa Torre NP [address] [place] [address] PCP - General 06/17/21 documented as of this encounter
[2024-05-18 11:17] VITALS: BP 147/60; PULSE 65; RESP 18; TEMP 36.8; O2SAT 98
--- NOTE | 2024-05-18 11:20 | PC.NURSE ---
Patient alert and cooperative. Some illogical speak and difficulty understanding and following simple commands. Remains on 15 minute checks. Lungs clear bilat, but with poor effort. Respirations even and non-labored. Abdomen soft, flat, non-tender with positive bowel sounds. Being treated for a UTI. Positive pedal pulses with no edema.
--- NOTE | 2024-05-18 12:21 | PC.NURSE ---
Patients behavior escalated suddenly. Speaking in a tangential, confused manner. Attempting to get oob and disrobe. Noted to be crying regarding some incident she was trying to remember. Able to de-escalate patient and patient more calm at this time. Provider aware.
[2024-05-18 16:04] VITALS: BP 184/52; PULSE 67; RESP 18
--- NOTE | 2024-05-18 16:32 | PC.NURSE ---
Patient requesting to use the bathroom. Patient continues to speak tangentially and illogically but cooperative. Able to ambulate to the bathroom with one person assist
--- NOTE | 2024-05-18 17:09 | PM.PSYCN ---
History of Present Illness Date of Service: 05/18/2024 Chief Complaint: combative behaviors Reason for Consult: combative behaviors Discussed with referring provider: Yes Sources of Information: patient interviewed, chart reviewed and crisis/core team assessment reviewed HPI Narrative: Mrs. Dennison is 78 year-old woman with dementia who resides at [facility]. She was brought via EMS due to increase combative behaviors, entering to other people's room, intrusive and increase aggression. In the ED, pertinent labs include CBC without leukocytosis, no anemia. CMP without electrolyte abnormalities, BUN 15, Cr 0.69, creatinine clearance 55.8. AST 34, ALT 23, ammonia 23, UA with nitrite, leukocytes and bacteria. Pt seen in the ED. She presents as very fearful and anxious. She is not able to tell where she is nor the month or the year. She think she knows this news writer and thanks me for coming to see her. She holds my hand and this seems to calm her down. Her thought process is with derailment and speech is mostly unintelligible. She says just come back like last time. Past Psychiatric History: Inpt: none OP: none Medical Evaluation Reviewed: Yes PENDING SALE TO [facility] Medical History PVD (peripheral vascular disease) Diabetes Diverticulosis Hyperlipidemia HTN (hypertension) UTI (urinary tract infection) Dementia Diagnostics Vital Signs (24Hr): Vital Signs - 24 hr 05/18/24 08:59 05/18/24 11:17 05/18/24 16:04 Temperature 97.0 F 98.2 F Pulse Rate 70 65 67 Respiratory Rate 18 18 18 Blood Pressure 153/56 H 147/60 H 184/52 H Pulse Oximetry 100 98 Oxygen Delivery Method Room Air BMI result Body Mass Index 19.9 Labs 05/18/24 09:24 05/19/24 17:41 Labs: Laboratory Results - last 48 hr 05/18/24 05/18/24 05/18/24 09:24 09:28 10:13 WBC 5.9 RBC 4.39 Hgb 13.3 Hct 39.9 MCV 90.9 MCH 30.3 MCHC 33.3 RDW 13.6 Plt Count 175 MPV 10.2 Immature Gran % (Auto) 0.3 Neut % (Auto) 73.2 H Lymph % (Auto) 13.9 L [place] % (Auto) 10.1 Eos % (Auto) 1.7 Baso % (Auto) 0.8 Lymph # (Auto) 0.8 L [place] # (Auto) 0.6 Eos # (Auto) 0.1 Baso # (Auto) 0.1 Abs Immat Gran (auto) 0.02 Absolute Neuts (auto) 4.3 Absolute Nucleated RBC 0.000 Nucleated RBC % (auto) 0.0 Sodium 144 Potassium 3.8 Chloride 110 H Carbon Dioxide 28 Anion Gap 10 L BUN 15 Creatinine 0.69 Estim Creat Clear Calc 55.8 Estimated GFR > 60 Random Glucose 111 Calcium 9.6 Magnesium 2.0 Total Bilirubin 1.0 AST 34 H ALT 23 Alkaline Phosphatase 44 Ammonia 31 Total Protein 5.9 L Albumin 3.6 Urine Color Dark Yellow Urine Appearance Clear Urine pH 6.0 Ur Specific [place] 1.015 Urine Protein Negative Urine Glucose (UA) Negative Urine Ketones Trace Urine Blood Trace H Urine Nitrite Positive H Ur Leukocyte Esterase Moderate (2+) H Urine RBC 0-2 Urine WBC >50 H Ur Squamous Epith Cells 0-2 Urine Bacteria 4+ Hyaline Casts 0-2 Influenza Type A (PCR) NEGATIVE Influenza Type B (PCR) NEGATIVE RSV RNA Qual (PCR) NEGATIVE SARS-CoV-2 RNA (RT-PCR) NEGATIVE Mental Status Exam Mental Status Exam Narrative: Appearance: thin, cachectic, anxious, shaking Behavior: cooperative Psychomotor: no agitation or retardation noted Speech: Medications Medications Current Medications Acetaminophen (Acetaminophen 325 Mg Tablet) 650 mg PO Q6H PRN PRN Reason: Pain, Mild (Pain Scale 1-3) Amlodipine Besylate (Amlodipine Besylate 5 Mg Tablet) 5 mg PO DAILY [facility]; Protocol Aspirin (Aspirin Enteric Coated 81 Mg Tablet.) 81 mg PO DAILY [facility] Atorvastatin Calcium (Atorvastatin Calcium 20 Mg Tablet) 20 mg PO DAILY [facility] Bisacodyl (Bisacodyl 10 Mg Supp.Rect) 10 mg MN DAILY PRN PRN Reason: Constipation Cyanocobalamin (Cyanocobalamin (Vitamin B-12) 1,000 Mcg Tablet) 1,000 mcg PO DAILY [facility] Divalproex Sodium (Divalproex Sodium 250 Mg Tablet.) 250 mg PO BID [facility] Donepezil HCl (Donepezil Hcl 5 Mg Tablet) 5 mg PO DAILY [facility] Melatonin (Melatonin 3 Mg Tablet) 9 mg PO BEDTIME PRN PRN Reason: Insomnia Mirtazapine (Mirtazapine 7.5 Mg Tablet) 7.5 mg PO BEDTIME [facility] Nitrofurantoin Macrocrystals (Nitrofurantoin Monohyd/M-Cryst 100 Mg Capsule) 100 mg PO BID [facility] Stop: 05/25/24 10:59 Last Admin: 05/18/24 11:14 Dose: 100 mg Quetiapine Fumarate (Quetiapine Fumarate 25 Mg Tablet) 25 mg PO BEDTIME [facility] Sodium Biphosphate/Sodium Phosphate (Sodium Phosphate,[place]-Dibasic 133 Ml Enema) 118 ml MN DAILY PRN PRN Reason: CONSTIPATION Allergies Allergies Allergy/AdvReac Type Severity Reaction Status Date / Time ciprofloxacin Allergy Unknown Verified 05/18/24 09:00 codeine Allergy Unknown Verified 05/18/24 09:00 haloperidol [From Haldol] Allergy Unknown Verified 05/18/24 09:00 oxycodone Allergy Unknown Verified 05/18/24 09:00 risedronate sodium Allergy Unknown Verified 05/18/24 09:00 [From Actonel] tetracycline Allergy Unknown Verified 05/18/24 09:00 trazodone Allergy Unknown Verified 05/18/24 09:00 Assessment & Plan Assessment & Plan (1) Major neurocognitive disorder: Status: Acute Code(s): F03.90 - Unspecified dementia, unspecified severity, without behavioral disturbance, psychotic disturbance, mood disturbance, and anxiety Plan Inpt level of care for stabilization, safety and containment- BP elevated, ordered amlodipine 5mg po daily will hold depakote for now- give one time dose of ativan for anxiety 0.5mg po Total time managing care of this patient today ____ minutes.
[2024-05-18] MEDS: amLODIPine Besylate 5 MG TABLET PO (17:27)
[2024-05-18] MEDS: LORazepam 0.5 MG TABLET PO (17:27)
--- NOTE | 2024-05-18 17:53 | MHC.CARE ---
Patient evaluated by the CARE Team and psychiatric provider, Kenzie Chang NP, disposition determined to be inpatient psychiatric treatment. ED provider, VIDAL Baer
--- NOTE | 2024-05-18 19:59 | MHC.EDTECH ---
rn aware pt refused vitals
--- NOTE | 2024-05-18 23:05 | MHC.EDTECH ---
assumed care of pt @[id number]
--- NOTE | 2024-05-18 23:27 | PC.NURSE ---
This typewriters functional tester assumed care of this Pt at 2300. Pt appears to be sleeping, equal, non-labored respirations. 1:1 sitter at bedside.
--- NOTE | 2024-05-19 05:33 | PC.NURSE ---
Pt attempting to get OOB, swatting at staff, no answering simple yes on no questions. Pt ambulated to bedside commode with two assist, unsteady gait. Able to void.
--- NOTE | 2024-05-19 06:43 | MHC.EDTECH ---
Attempted to update vitals and pt started to get agitated and confused. With RN assist pt was helped to bedside commode. Pt was not able to void at this time. Pt back in bed and resting quietly. Unable to obtain vitals. RN aware
[2024-05-19 06:45] VITALS: RESP 14
--- NOTE | 2024-05-19 07:57 | ECG_ITS ---
Test Reason : ? prolonged qtc Blood Pressure : */* mmHG Vent. Rate : 65 BPM Atrial Rate : 65 BPM P-R Int : 154 ms QRS Dur : 66 ms QT Int : 406 ms P-R-T Axes : 47 -29 34 degrees QTcB Int : 422 ms Normal sinus rhythm Otherwise normal ECG When compared with ECG of 01-May-2024 17:35, No significant changes seen Referred By: Generic ED Physician Electronically Signed By: Terrell Kearns
[2024-05-19 08:16] VITALS: BP 124/43; PULSE 69; RESP 16; TEMP 37; O2SAT 97
[2024-05-19 08:16] LABS: Amphetamine Screen Urine Not Detected (Not Detect); Barbiturates, Urine Not Detected (Not Detect); Benzodiazepines Screen Urine Not Detected (Not Detect); Buprenorphine Scr Not Detected (Not Detect); Cannabinoid Screen Urine Not Detected (Not Detect); Cocaine Screen Urine Not Detected (Not Detect); Fentanyl, urine Not Detected (Not Detect); Methadone Screen, Urine Not Detected (Not Detect); Opiate Screen Urine Not Detected (Not Detect); Oxycodone Screen Urine Not Detected (Not Detect); Phencyclidine Screen Urine Not Detected (Not Detect)
[2024-05-19 08:21] VITALS: BP 124/43
[2024-05-19] MEDS: Atorvastatin Calcium 20 MG TABLET PO (08:21)
[2024-05-19] MEDS: Cyanocobalamin (Vitamin B-12) 1,000 MCG TABLET 1000 MCG PO (08:21)
[2024-05-19] MEDS: amLODIPine Besylate 5 MG TABLET PO (08:21)
[2024-05-19] MEDS: Nitrofurantoin Monohyd/M-Cryst 100 MG CAPSULE PO ×2 (08:22→22:02)
[2024-05-19] MEDS: Aspirin Enteric Coated 81 MG TABLET.DR PO (08:22)
[2024-05-19] MEDS: Donepezil HCl 5 MG TABLET PO (08:22)
[2024-05-19] MEDS: Acetaminophen 325 MG TABLET 650 MG PO (08:25)
--- NOTE | 2024-05-19 08:38 | PC.NURSE ---
EKG COMPLETED WITH NO ISSUE. VS WNL. MEDICATED PER EMR. TOOK PILLS WHOLE. ATE SMALL AMT OF BREAKFAST TRAY. C/O FOREHEAD PAIN, PAIN OVER R EYE, BRUISING NOTED, NO REDNESS IN THE EYE, NO DRAINAGE. GIVEN TYLENOL FOR PAIN. PT ALERT ORIENTED X 1. UNABLE TO ANSWER QUESTIONS APPROPRIATELY. TO BE TRANSFERRED TO [facility] TODAY PER ADMISSION TEAM. .SITTER REMAINS AT BEDSIDE. WCTM.
--- NOTE | 2024-05-19 11:03 | PC.NURSE ---
Report recieved at this time, taken over care at this time.
--- NOTE | 2024-05-19 11:42 | MHC.CARE ---
Call from patient's [id number], Patti Andrade [phone], she is looking for financial aid counselor placement and had questions about the referral process from the hospital. She said that Rosi in [place] told her to request [facility], open a referral, for patient. Advised she should speak to the unit SW after admission and provided the main number for S1.
[2024-05-19 17:42] VITALS: BP 105/88; PULSE 104; RESP 18; TEMP 37.9; O2SAT 96
[2024-05-19 18:03] LABS: Alanine Aminotransferase 46 U/L (0-31); Albumin Level 3.8 g/dL (3.5-5.0); Alkaline Phosphatase 60 U/L (39-117); Anion Gap 14 (12-20); Aspartate Amino Transferase 82 U/L (5-31); Bilirubin Total 1.4 mg/dL (0.0-1.0); Blood Urea Nitrogen 13 mg/dL (9-16); Calcium 9.4 mg/dL (8.4-10.2); Carbon Dioxide 27 mmol/L (22-29); Chloride 105 mmol/L (96-108); Creatinine Clr Calc Pharmacy 65.4; Estimated Glomerular Filt Rate > 60; Glucose Random 115 mg/dL (60-115); Potassium 3.2 mmol/L (3.3-5.1); Sodium 143 mmol/L (135-145); Total Protein 6.2 g/dL (6.5-8.0)
--- NOTE | 2024-05-19 18:27 | PC.NURSE ---
Amauri messaged admitting TALENT ACQUISITION ASSISTANT, informed her about pt having low grae fever, and when RN tried to give her Tylenol, told RN to shove it, and leave her alone. Awaiting orders.
[2024-05-19] MEDS: Ketorolac Tromethamine 15 MG/ML VIAL IM (19:03)
[2024-05-19] MEDS: OLANZapine 10 MG VIAL 5 MG IM (20:07)
--- NOTE | 2024-05-19 21:32 | MHC.CARE ---
Per ED provider Dr. De Paz, Pt does not require a full LOC evaluation and is a consult. 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 Pt reports that they had been living in a stressful situation with a peer which impacted their relapse. Pt is often dismissive, sarcastic and condescending. Pt reports that they were agreeable to coming to the ED with the encouragement of their assistant womens volleyball coach with the goal of getting into a program I guess. However, Pt reports that they are not interested at this time as they had a bad experience last time while at [facility]; I don't count today as a relapse. It was a lapse and I am 18 months sober. Pt reports they have a clinician through [facility] and recently had an intake with a psychiatrist. No SI/HI/AVH was reported and no signs of psychosis are observed. Pt was provided a resource booklet and verbal information about detox if they should be interested in the future. Pt verbalized understanding and had no further questions or concerns.
--- NOTE | 2024-05-19 21:35 | PC.NURSE ---
Report given bedside to CELSO Isbell. Informed pt. given meds and refusing to take any PO at this time. Pt. had fever and tried to recheck vs and temp, pt. refused.
[2024-05-19 21:51] VITALS: BMI 18.4
[2024-05-19 21:52] VITALS: BP 89/50; PULSE 59; RESP 17; TEMP 36.8; O2SAT 93
[2024-05-19] MEDS: Mirtazapine 7.5 MG TABLET PO (22:02)
--- NOTE | 2024-05-20 01:56 | PC.NURSE ---
Admission Note Brianna Dennison, a 78-year-old woman, was presented to [facility] ED from [facility] for increased agitation, combative, and intrusive behavior. The patient has a medical and psychiatric history of PVD (peripheral vascular disease), Diabetes, Diverticulosis, Hyperlipidemia, HTN (hypertension), UTI (urinary tract infection), and Dementia.? Brianna arrived at our unit in a stretcher at 2135 on 05/19/24, on Section 12 B, with an admitting diagnosis of? unspecified dementia, unspecified severity, with behavioral disturbance. The patient is alert and oriented to self only currently but follows direction well. The skin check revealed no dime size scab on left forearm, bruise on right eyelid, and bottoms appeared slightly red but intact and blanchable.? MAR updated in ED, patient takes her meds whole with water willingly. Per report, patient due to her weakness has not ambulated in the ED however at SNF patient ambulates independently. The patient reported she has occasional functional incontinence but most of the time she is continent with bowel and bladder, and her last bowel movement was on 05/18/24. Currently she is dependent on ADL care but was independent of ADL at SNF. The patient has a copy of [facility] that indicates code status DNR/DNI.? Labs are unremarkable. UA is positive and is currently treated with Macrobid 100 mg BID. Utox negative. Serology negative. Brianna was unable to sign the treatment plan, safety tool, belonging sheet, and release paper. Corinaaband searched. Brianna is on a 5 minute safety check.
[2024-05-20 05:55] LABS: Glucose, Whole Blood 110 mg/dL (60-115)
[2024-05-20 08:00] VITALS: BP 110/53; PULSE 96; RESP 16; TEMP 36.4
[2024-05-20] MEDS: OLANZapine 10 MG VIAL 5 MG IM (08:00)
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
--- NOTE | 2024-05-20 10:20 | HO.PSYADMNOT ---
HPI Date of Service: 05/20/24 Chief Complaint: combative behaviors Sources of Information: patient interviewed, chart reviewed and crisis/core team assessment reviewed HPI Subjective Notes: Section 12B Narrative: Mrs. Dennison is 78 year-old woman with dementia who resides at [facility]. She was brought via EMS due to increase combative behaviors, entering to other people's room, intrusive and increase aggression. In the ED, pertinent labs include CBC without leukocytosis, no anemia. CMP without electrolyte abnormalities, BUN 15, Cr 0.69, creatinine clearance 55.8. AST 34, ALT 23, ammonia 23, UA with nitrite, leukocytes and bacteria. Pt seen in the ED. She presents as very fearful and anxious. She is not able to tell where she is nor the month or the year. She think she knows this typewriter repairer and thanks me for coming to see her. She holds my hand and this seems to calm her down. Her thought process is with derailment and speech is mostly unintelligible. She says just come back like last time. On the unit, pt presents as combative, throwing cups at staff, yelling at staff and attempted to scratch staff when they were doing vital signs. This related to confusion. She is not oriented to place, month, year nor situation. Her attention is poor. She appears delirious in addition to underlying dementia. Past Psychiatric History: Inpt: none OP: none Medical Evaluation Reviewed: Yes [facility] Medical History PVD (peripheral vascular disease) Diabetes Diverticulosis Hyperlipidemia HTN (hypertension) UTI (urinary tract infection) Dementia Diagnostics Vital Signs (24Hr): Vital Signs - 24 hr 05/19/24 17:42 05/19/24 21:52 Temperature 100.3 F 98.2 F Pulse Rate 104 H 59 Respiratory Rate 18 17 Blood Pressure 105/88 89/50 L Pulse Oximetry 96 93 Oxygen Delivery Method Room Air Room Air BMI result Body Mass Index 18.4 Labs 05/18/24 09:24 05/19/24 17:41 Labs: Laboratory Results - last 48 hr 05/18/24 05/19/24 05/20/24 10:13 17:41 05:49 Sodium 143 Potassium 3.2 L Chloride 105 Carbon Dioxide 27 Anion Gap 14 BUN 13 Creatinine 0.59 Estim Creat Clear Calc 65.4 Estimated GFR > 60 POC Glucose 110 Random Glucose 115 Calcium 9.4 Total Bilirubin 1.4 H AST 82 H ALT 46 H Alkaline Phosphatase 60 Total Protein 6.2 L Albumin 3.8 Urine Color Dark Yellow Urine Appearance Clear Urine pH 6.0 Ur Specific [place] 1.015 Urine Protein Negative Urine Glucose (UA) Negative Urine Ketones Trace Urine Blood Trace H Urine Nitrite Positive H Ur Leukocyte Esterase Moderate (2+) H Urine RBC 0-2 Urine WBC >50 H Ur Squamous Epith Cells 0-2 Urine Bacteria 4+ Hyaline Casts 0-2 Urine Opiates Screen Not Detected Ur Buprenorphine Scrn Not Detected Ur Oxycodone Screen Not Detected Urine Methadone Screen Not Detected Urine Fentanyl Screen Not Detected Ur Barbiturates Screen Not Detected Ur Phencyclidine Scrn Not Detected Ur Amphetamines Screen Not Detected U Benzodiazepines Scrn Not Detected Urine Cocaine Screen Not Detected U Marijuana (THC) Screen Not Detected Meds/Allergies Meds Home Medications ?Medication ?Instructions ?Recorded ?Confirmed ?Type acetaminophen 325 mg tablet 650 mg PO Q4H PRN Pain 05/18/24 05/18/24 History aspirin 81 mg capsule 81 mg PO DAILY 05/18/24 05/18/24 History atorvastatin 20 mg tablet 20 mg PO DAILY 05/18/24 05/18/24 History bisacodyl 10 mg rectal suppository 10 mg NM DAILY PRN Constipation 05/18/24 05/18/24 History cyanocobalamin (vitamin B-12) 1,000 mcg PO DAILY Supplement 05/18/24 05/18/24 History 1,000 mcg tablet divalproex 250 mg tablet,delayed 250 mg PO BID 05/18/24 05/18/24 History release (Depakote) donepezil 5 mg tablet 5 mg PO DAILY 05/18/24 05/18/24 History magnesium hydroxide 400 mg/5 mL 30 ml PO DAILY PRN Constipation 05/18/24 05/18/24 History oral suspension (Milk of Magnesia) melatonin 5 mg tablet 10 mg PO BEDTIME PRN Insomnia 05/18/24 05/18/24 History mirtazapine 7.5 mg tablet 7.5 mg PO BEDTIME 05/18/24 05/18/24 History multivitamin with minerals 1 cap PO DAILY 05/18/24 05/18/24 History naloxone 4 mg/actuation nasal 4 mg intranasal Q3M PRN Opiate 05/18/24 05/18/24 History spray (Narcan) Reversal quetiapine 25 mg tablet 25 mg PO BEDTIME 05/18/24 05/18/24 History sodium phosphates 19 gram-7 118 ml NM NEEDED Constipation 05/18/24 05/18/24 History gram/118 mL enema (Fleet Enema) Allergies Allergies Allergy/AdvReac Type Severity Reaction Status Date / Time ciprofloxacin Allergy Unknown Verified 05/18/24 09:00 codeine Allergy Unknown Verified 05/18/24 09:00 haloperidol [From Haldol] Allergy Unknown Verified 05/18/24 09:00 oxycodone Allergy Unknown Verified 05/18/24 09:00 risedronate sodium Allergy Unknown Verified 05/18/24 09:00 [From Actonel] tetracycline Allergy Unknown Verified 05/18/24 09:00 trazodone Allergy Unknown Verified 05/18/24 09:00 Mental Status Exam Mental Status Exam Narrative: Appearance: thin, cachectic, anxious, shaking Behavior: cooperative Psychomotor: no agitation or retardation noted Speech: mumbles, regular rate/rhythm, spontaneous TP: mostly unintelligible TC: difficult to understand Mood: get out Affect: guarded talking to herself, unclear if internally preoccupied. impaired judgment/insight not oriented to place, month, year or situation. Assessment & Plan Assessment & Plan (1) Major neurocognitive disorder: Status: Acute Code(s): F03.90 - Unspecified dementia, unspecified severity, without behavioral disturbance, psychotic disturbance, mood disturbance, and anxiety Plan Mrs. Dennison is a 78 year-old woman with hx of dementia who was sent from [facility] where she was receiving STR due to combative behaviors. In the ED, pt found to have UTI. She presents as delirious superimposed on dementia. will schedule low dose risperidone 0.5mg po BID. continue other medications. PLAN 1. Admit to S1, Sect 12b, 1:1 due to fall risk 2. obtain collateral information 3. aftercare planning. Patient educated on: diagnosis and medication risk/benefits Reason for continued inpatient stay Substantial Risk for: inability to function Statement Statement: I have reviewed the history and physical and performed a pertinent examination on my patient. No changes have occurred unless specified. If the History and Physical was not performed prior to admission, the Hospitalist's service will be consulted for completing the admission physical. Time Spent With Patient Time: Total time managing care of this patient today ____ minutes.
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
[2024-05-20] MEDS: risperiDONE Oral Sol 1 MG/ML SOLUTION 0.5 MG PO ×2 (12:25→21:28)
[2024-05-20] MEDS: Nitrofurantoin Monohyd/M-Cryst 100 MG CAPSULE PO ×2 (12:26→20:37)
[2024-05-20 13:53] VITALS: BMI 19.9
--- NOTE | 2024-05-20 14:03 | MHC.CLN ---
NUTRITION DIET=REGULAR, CHOPPED. ADDED ENSURE TID TO PROMOTE NUTRITIONAL INTAKE. SUPPLEMENT PROVIDES 1050 KCALS, 60 G PROTEIN. POOR PO INTAKE PRIOR TO ADMISSION NOTED. REVIEW OF RECENT WEIGHT HX SHOWS VARYING WEIGHTS, RANGING FROM 48.5 KG TO 63.5 KG OVER APPROX 3 WEEKS. IF WEIGHT=52.7 KG (05/18/24), BMI=19.9, 97% IBW. FOLLOW FOR INTAKE AND WEIGHTS.
[2024-05-20 20:00] VITALS: BP 122/58; PULSE 94; RESP 16; TEMP 37.1; O2SAT 98
[2024-05-20] MEDS: Mirtazapine 7.5 MG TABLET PO (20:38)
[2024-05-20] MEDS: QUEtiapine Fumarate 25 MG TABLET PO (20:38)
[2024-05-21 09:45] VITALS: BP 110/66; PULSE 109; RESP 16; TEMP 36.4; O2SAT 95
--- NOTE | 2024-05-21 10:06 | HO.PSYCHPN ---
Subjective Subjective Date of Service: 05/21/24 Reason For Visit: combative behaviors Subjective Notes: Conditional Voluntary Healthcare Proxy: Yes Guardianship: No Medical Problems Affecting Mental Status: Yes (dementia, uti) Interim History: 78 yo with inc agita around uti = trouble swallowing agreeing to meds po - so needs to be put in yogurt or applesauce- will need to change abiotic to something that can be given that way=- taking risperidone liquid- with fair effect and does better with more gentle less reactive 1:1 provider- Medication Compliance: No Side effects from medications: No Attending Groups: No Review of Systems Acute medical concerns: Yes uti worsening confusion Mental Status Exam Mental Status Exam Patient Appearance: Well Grooomed and Appropriate Patient Orientation: Person Level of Consciousness: Awake Patient Behavior: Impulsive Mood Description: Calm Affect Description: Blunted Patient Cognition Impaired: Yes Ability to Follow Directions: Poor Speech Pattern: Impoverished Hallucinations: None Thought Content: positive for [place] and positive for Poverty of Content Depressive Symptoms: Increased Irritability Abnormal Motor Activity Signs and Symptoms: Restlessness Judgement: Poor Diagnostics Vital Signs (24Hr): Vital Signs - 24 hr 05/20/24 20:00 Temperature 98.8 F Pulse Rate 94 Respiratory Rate 16 Blood Pressure 122/58 L Pulse Oximetry 98 Oxygen Delivery Method Room Air BMI result Body Mass Index 19.9 Labs 05/21/24 10:03 05/21/24 10:03 Labs: Laboratory Results - last 48 hr 05/19/24 05/20/24 17:41 05:49 Sodium 143 Potassium 3.2 L Chloride 105 Carbon Dioxide 27 Anion Gap 14 BUN 13 Creatinine 0.59 Estim Creat Clear Calc 65.4 Estimated GFR > 60 POC Glucose 110 Random Glucose 115 Calcium 9.4 Total Bilirubin 1.4 H AST 82 H ALT 46 H Alkaline Phosphatase 60 Total Protein 6.2 L Albumin 3.8 Medications Medications Current Medications Acetaminophen (Acetaminophen 325 Mg Tablet) 650 mg PO Q6H PRN PRN Reason: Pain, Mild (Pain Scale 1-3) Last Admin: 05/19/24 08:25 Dose: 650 mg Al Hydroxide/Mg Hydroxide (Magnesium Hydrox/Alum Hydrox 30 Ml Oral.Susp) 30 ml PO Q6H PRN PRN Reason: Heartburn/Nausea Aspirin (Aspirin Enteric Coated 81 Mg Tablet.Dr) 81 mg PO DAILY [facility] Last Admin: 05/20/24 10:07 Dose: Not Given Atorvastatin Calcium (Atorvastatin Calcium 20 Mg Tablet) [address] [facility] Last Admin: 05/20/24 10:07 Dose: Not Given Bisacodyl (Bisacodyl 10 Mg Supp.Rect) 10 mg [place] DAILY PRN PRN Reason: Constipation Cyanocobalamin (Cyanocobalamin (Vitamin B-12) 1,000 Mcg Tablet) 1,[address] [facility] Last Admin: 05/20/24 10:08 Dose: Not Given Donepezil HCl (Donepezil Hcl 5 Mg Tablet) [address] [facility] Last Admin: 05/20/24 10:08 Dose: Not Given Lorazepam (Lorazepam 0.5 Mg Tablet) 0.5 mg PO TID PRN PRN Reason: severe anxiety Magnesium Hydroxide (Milk Of Magnesia 30 Ml Oral.Susp) 30 ml PO DAILY PRN PRN Reason: Constipation Melatonin (Melatonin 3 Mg Tablet) 9 mg PO BEDTIME PRN PRN Reason: Insomnia Mirtazapine (Mirtazapine 7.5 Mg Tablet) 7.[address] [facility] Last Admin: 05/20/24 20:38 Dose: 7.5 mg Nitrofurantoin Macrocrystals (Nitrofurantoin Monohyd/M-Cryst 100 Mg Capsule) [address] [facility] Stop: 05/25/24 10:59 Last Admin: 05/20/24 20:37 Dose: 100 mg Quetiapine Fumarate (Quetiapine Fumarate 25 Mg Tablet) [address] [facility] Last Admin: 05/20/24 20:38 Dose: 25 mg Risperidone (Risperidone Oral Anya 1 Mg/Ml Solution) 0.[address] [facility] Last Admin: 05/20/24 21:28 Dose: 0.5 mg Sodium Biphosphate/Sodium Phosphate (Sodium Phosphate,[place]-Dibasic 133 Ml Enema) 118 ml [place] DAILY PRN PRN Reason: CONSTIPATION Trazodone HCl (Trazodone Hcl 50 Mg Tablet) 50 mg PO BEDTIME PRN PRN Reason: Insomnia Allergies Allergies Allergy/AdvReac Type Severity Reaction Status Date / Time ciprofloxacin Allergy Unknown Verified 05/18/24 09:00 codeine Allergy Unknown Verified 05/18/24 09:00 haloperidol [From Haldol] Allergy Unknown Verified 05/18/24 09:00 oxycodone Allergy Unknown Verified 05/18/24 09:00 risedronate sodium Allergy Unknown Verified 05/18/24 09:00 [From Actonel] tetracycline Allergy Unknown Verified 05/18/24 09:00 trazodone Allergy Unknown Verified 05/18/24 09:00 Assessment & Plan Assessment & Plan (1) Major neurocognitive disorder: Status: Acute Code(s): F03.90 - Unspecified dementia, unspecified severity, without behavioral disturbance, psychotic disturbance, mood disturbance, and anxiety Plan Mrs. Dennison is a 78 year-old woman with hx of dementia who was sent from [facility] where she was receiving STR due to combative behaviors. In the ED, pt found to have UTI. She presents as delirious superimposed on dementia. will schedule low dose risperidone 0.5mg po BID. continue other medications. PLAN 1. Admit to S1, Sect 12b, 1:1 due to fall risk 2. obtain collateral information 3. aftercare planning. 05/21 - nursing will contact hospitalist about antibiotic that could be given in food or liquid form otherwise CTP Reason for continued inpatient stay Substantial Risk for: inability to function, rapid decompensation and med/psych decompensation Time Spent With Patient Time: Total time managing care of this patient today ____ minutes.
[2024-05-21 10:07] LABS: MANUAL DIFF FLAG NO
[2024-05-21 10:27] LABS: Basophils Percent Auto 0.5 % (0-2); Eosinophils Absolute Auto 0.2 X10*3/uL (0.0-0.4); Eosinophils Percent Auto 4.5 % (0-4); Hematocrit 38.7 % (37.0-47.0); Hemoglobin 13.1 g/dl (12.0-16.0); Imm Gran Abs Auto 0.02 X10*3/uL (0.00-0.03); Imm Gran Pct Auto 0.5 % (0.0-0.4); Lymphocytes Absolute Auto 0.1 X10*3/uL (1.2-4.9); Lymphocytes Percent Auto 3.3 % (20-40); Mean Corpuscular HGB Conc 33.9 g/dl (31.0-35.0); Mean Corpuscular Hemoglobin 30.2 pg (27.0-33.0); Mean Corpuscular Volume 89.2 fL (80.0-98.0); Mean Platelet Volume 11.2 fL (9.4-12.3); Monocytes Absolute Auto 0.3 X10*3/uL (0.1-1.2); Monocytes Percent Auto 6.1 % (2-11); Neutrophils Absolute Auto 3.6 x10*3/uL (2.0-8.3); Neutrophils Percent Auto 85.1 % (45-73); Platelet Count 141 X10*3/uL (160-400); Red Blood Count 4.34 X10*6/uL (4.20-5.50); Red Cell Distribution Width 13.5 % (11.0-16.0); White Blood Count 4.2 X10*3/uL (4.8-10.8)
[2024-05-21 10:33] LABS: Cholesterol 105 mg/dL (<200); HDL Cholesterol 40 mg/dL (>40); LDL Cholesterol Calculated 48 mg/dL (<100); Triglycerides 86 mg/dL (<150)
[2024-05-21 10:55] LABS: TSH reflex Free T4 0.85 uIU/mL (0.32-4.0)
[2024-05-21 10:58] LABS: Estimated Average Glucose 120 mg/dL; Hemoglobin A1C 135.0004 umol/L; Hemoglobin A1c % 5.8 % (<6.0); Total Hemoglobin (HGBA1C) 3385.0402 umol/L
[2024-05-21 11:09] LABS: Folate 12.6 ng/mL (> or = 4.0); Vitamin B12 1991 pg/mL (200-900)
[2024-05-21 11:35] LABS: Alanine Aminotransferase 435 U/L (0-31); Albumin Level 3.3 g/dL (3.5-5.0); Alkaline Phosphatase 93 U/L (39-117); Anion Gap 12 (12-20); Aspartate Amino Transferase 527 U/L (5-31); Bilirubin Total 1.4 mg/dL (0.0-1.0); Blood Urea Nitrogen 27 mg/dL (9-16); Calcium 9.5 mg/dL (8.4-10.2); Carbon Dioxide 24 mmol/L (22-29); Chloride 105 mmol/L (96-108); Estimated Glomerular Filt Rate 48; Glucose Random 203 mg/dL (60-115); Sodium 138 mmol/L (135-145); Total Protein 5.5 g/dL (6.5-8.0)
[2024-05-21] MEDS: risperiDONE Oral Sol 1 MG/ML SOLUTION 0.5 MG PO ×2 (12:15→20:20)
[2024-05-21] MEDS: nitrofurantoin macrocrystaL 50 MG CAPSULE 100 MG PO ×2 (16:49→22:01)
[2024-05-21 20:00] VITALS: BP 116/60; PULSE 77; RESP 18; TEMP 36.6; O2SAT 96
[2024-05-21] MEDS: Mirtazapine 7.5 MG TABLET PO (20:19)
[2024-05-21] MEDS: QUEtiapine Fumarate 25 MG TABLET PO (20:19)
[2024-05-21] MEDS: LORazepam 0.5 MG TABLET PO (22:15)
[2024-05-21] MEDS: Melatonin 3 MG TABLET 9 MG PO (22:15)
[2024-05-22] MEDS: nitrofurantoin macrocrystaL 50 MG CAPSULE 100 MG PO ×4 (05:21→22:16)
--- NOTE | 2024-05-22 08:01 | HO.PSYCHPN ---
Subjective Subjective Date of Service: 05/22/24 Reason For Visit: combative behaviors Subjective Notes: Conditional Voluntary Healthcare Proxy: Yes Guardianship: No Medical Problems Affecting Mental Status: Yes (uti - getting abiotic and ongoing dementia) Interim History: ONgoing dementia and uti, had prn ativan and bacme sedated leaning over in wheelchair brought back to room put in bed and took a nap - Medication Compliance: Yes Side effects from medications: Yes (some sedation) Attending Groups: No Review of Systems Acute medical concerns: Yes uti Medical Review of Systems: unchanged Mental Status Exam Mental Status Exam Narrative: lying over in chair, Diagnostics Vital Signs (24Hr): Vital Signs - 24 hr 05/21/24 09:45 05/21/24 20:00 Temperature 97.6 F 98 F Pulse Rate 109 H 77 Respiratory Rate 16 18 Blood Pressure 110/66 116/60 Pulse Oximetry 95 96 Oxygen Delivery Method Room Air Room Air BMI result Body Mass Index 19.9 Labs 05/21/24 10:03 05/21/24 10:03 Labs: Laboratory Results - last 48 hr 05/21/24 10:03 WBC 4.2 L RBC 4.34 Hgb 13.1 Hct 38.7 MCV 89.2 MCH 30.2 MCHC 33.9 RDW 13.5 Plt Count 141 L MPV 11.2 Immature Gran % (Auto) 0.5 H Neut % (Auto) 85.1 H Lymph % (Auto) 3.3 L [place] % (Auto) 6.1 Eos % (Auto) 4.5 H Baso % (Auto) 0.5 Lymph # (Auto) 0.1 L [place] # (Auto) 0.3 Eos # (Auto) 0.2 Baso # (Auto) 0.0 Abs Immat Gran (auto) 0.02 Absolute Neuts (auto) 3.6 Absolute Nucleated RBC 0.000 Nucleated RBC % (auto) 0.0 Sodium 138 Potassium 3.0 L Chloride 105 Carbon Dioxide 24 Anion Gap 12 BUN 27 H Creatinine 1.10 Estim Creat Clear Calc 35.0 Estimated GFR 48 Random Glucose 203 H Estimat Average Glucose 120 Hemoglobin A1c % 5.8 Calcium 9.5 Total Bilirubin 1.4 H AST 527 H ALT 435 H Alkaline Phosphatase 93 Total Protein 5.5 L Albumin 3.3 L Triglycerides 86 Cholesterol 105 LDL Cholesterol, Calc 48 HDL Cholesterol 40 L Vitamin B12 1991 H Folate 12.6 TSH 0.85 Medications Medications Current Medications Acetaminophen (Acetaminophen 325 Mg Tablet) 650 mg PO Q6H PRN PRN Reason: Pain, Mild (Pain Scale 1-3) Last Admin: 05/19/24 08:25 Dose: 650 mg Al Hydroxide/Mg Hydroxide (Magnesium Hydrox/Alum Hydrox 30 Ml Oral.Susp) 30 ml PO Q6H PRN PRN Reason: Heartburn/Nausea Aspirin (Aspirin Enteric Coated 81 Mg Tablet.Dr) 81 mg PO DAILY [facility] Last Admin: 05/21/24 13:56 Dose: Not Given Atorvastatin Calcium (Atorvastatin Calcium 20 Mg Tablet) 20 mg PO DAILY [facility] Last Admin: 05/21/24 13:57 Dose: Not Given Bisacodyl (Bisacodyl 10 Mg Supp.Rect) 10 mg [place] DAILY PRN PRN Reason: Constipation Cyanocobalamin (Cyanocobalamin (Vitamin B-12) 1,000 Mcg Tablet) 1,000 mcg PO DAILY [facility] Last Admin: 05/21/24 13:57 Dose: Not Given Donepezil HCl (Donepezil Hcl 5 Mg Tablet) 5 mg PO DAILY [facility] Last Admin: 05/21/24 13:57 Dose: Not Given Lorazepam (Lorazepam 0.5 Mg Tablet) 0.5 mg PO TID PRN PRN Reason: severe anxiety Last Admin: 05/21/24 22:15 Dose: 0.5 mg Magnesium Hydroxide (Milk Of Magnesia 30 Ml Oral.Susp) 30 ml PO DAILY PRN PRN Reason: Constipation Melatonin (Melatonin 3 Mg Tablet) 9 mg PO BEDTIME PRN PRN Reason: Insomnia Last Admin: 05/21/24 22:15 Dose: 9 mg Mirtazapine (Mirtazapine 7.5 Mg Tablet) 7.5 mg PO BEDTIME [facility] Last Admin: 05/21/24 20:19 Dose: 7.5 mg Nitrofurantoin Macrocrystals (Nitrofurantoin Macrocrystal 50 Mg Capsule) 100 mg PO Q6H [facility] Last Admin: 05/22/24 05:21 Dose: 100 mg Quetiapine Fumarate (Quetiapine Fumarate 25 Mg Tablet) 25 mg PO BEDTIME [facility] Last Admin: 05/21/24 20:19 Dose: 25 mg Risperidone (Risperidone Oral Anya 1 Mg/Ml Solution) 0.5 mg PO BID [facility] Last Admin: 05/21/24 20:20 Dose: 0.5 mg Sodium Biphosphate/Sodium Phosphate (Sodium Phosphate,[place]-Dibasic 133 Ml Enema) 118 ml [place] DAILY PRN PRN Reason: CONSTIPATION Trazodone HCl (Trazodone Hcl 50 Mg Tablet) 50 mg PO BEDTIME PRN PRN Reason: Insomnia Allergies Allergies Allergy/AdvReac Type Severity Reaction Status Date / Time ciprofloxacin Allergy Unknown Verified 05/18/24 09:00 codeine Allergy Unknown Verified 05/18/24 09:00 haloperidol [From Haldol] Allergy Unknown Verified 05/18/24 09:00 oxycodone Allergy Unknown Verified 05/18/24 09:00 risedronate sodium Allergy Unknown Verified 05/18/24 09:00 [From Actonel] tetracycline Allergy Unknown Verified 05/18/24 09:00 trazodone Allergy Unknown Verified 05/18/24 09:00 Assessment & Plan Assessment & Plan (1) Major neurocognitive disorder: Status: Acute Code(s): F03.90 - Unspecified dementia, unspecified severity, without behavioral disturbance, psychotic disturbance, mood disturbance, and anxiety Plan Mrs. Dennison is a 78 year-old woman with hx of dementia who was sent from [facility] where she was receiving STR due to combative behaviors. In the ED, pt found to have UTI. She presents as delirious superimposed on dementia. will schedule low dose risperidone 0.5mg po BID. continue other medications. PLAN 1. Admit to S1, Sect 12b, 1:1 due to fall risk 2. obtain collateral information 3. aftercare planning. 05/21 - nursing will contact hospitalist about antibiotic that could be given in food or liquid form otherwise CTP 05/22 CTP Reason for continued inpatient stay Substantial Risk for: inability to function, rapid decompensation and med/psych decompensation Time Spent With Patient Time: Total time managing care of this patient today ____ minutes.
[2024-05-22] MEDS: Atorvastatin Calcium 20 MG TABLET PO (12:45)
[2024-05-22] MEDS: Cyanocobalamin (Vitamin B-12) 1,000 MCG TABLET 1000 MCG PO (12:45)
[2024-05-22] MEDS: risperiDONE Oral Sol 1 MG/ML SOLUTION 0.5 MG PO ×2 (12:45→22:21)
[2024-05-22] MEDS: Aspirin Enteric Coated 81 MG TABLET.DR PO (12:45)
[2024-05-22] MEDS: LORazepam 0.5 MG TABLET PO ×2 (12:45→23:54)
[2024-05-22] MEDS: Donepezil HCl 5 MG TABLET PO (12:45)
[2024-05-22 14:10] VITALS: BP 141/63; PULSE 76; RESP 16; TEMP 36.4; O2SAT 95
[2024-05-22 20:00] VITALS: BP 110/51; PULSE 80; RESP 18; TEMP 36.1; O2SAT 94
[2024-05-22] MEDS: QUEtiapine Fumarate 25 MG TABLET PO (22:16)
[2024-05-22] MEDS: Mirtazapine 7.5 MG TABLET PO (22:16)
[2024-05-22] MEDS: Melatonin 3 MG TABLET 9 MG PO (23:54)
[2024-05-22] MEDS: traZODone HCL 50 MG TABLET PO (23:54)
[2024-05-23] MEDS: nitrofurantoin macrocrystaL 50 MG CAPSULE 100 MG PO ×4 (04:17→23:42)
[2024-05-23 08:00] VITALS: BP 112/64; PULSE 88; TEMP 36.3; O2SAT 95
[2024-05-23] MEDS: Aspirin Enteric Coated 81 MG TABLET.DR PO (08:20)
[2024-05-23] MEDS: Donepezil HCl 5 MG TABLET PO (08:20)
[2024-05-23] MEDS: Cyanocobalamin (Vitamin B-12) 1,000 MCG TABLET 1000 MCG PO (08:20)
[2024-05-23] MEDS: Atorvastatin Calcium 20 MG TABLET PO (08:20)
--- NOTE | 2024-05-23 08:25 | P.PNPSI_ITS ---
Subjective Subjective Date of Service: 05/23/24 Reason For Visit: combative behaviors Subjective Notes: Conditional Voluntary Healthcare Proxy: Yes Interim History: Pt slept through the night. She continues to present as delirious superimposed on dementia. She was napping on and off. less combative but still very confused. she is taking medications as prescribed. No behavioral concerns. Review of Systems Review of Systems Yes Unobtainable due to mental condition (patient has Alzheimer's dementia and refuses to answer any questions) Reports confusion (per her baseline) Psychiatric: Reports confusion (per her baseline) Diagnostics Vital Signs (24Hr): Vital Signs - 24 hr 05/22/24 14:10 05/22/24 20:00 Temperature 97.6 F 97 F Pulse Rate 76 80 Respiratory Rate 16 18 Blood Pressure 141/63 H 110/51 L Pulse Oximetry 95 94 Oxygen Delivery Method Room Air Room Air BMI result Body Mass Index 19.9 Labs 05/21/24 10:03 05/21/24 10:03 Labs: Laboratory Results - last 48 hr 05/21/24 10:03 WBC 4.2 L RBC 4.34 Hgb 13.1 Hct 38.7 MCV 89.2 MCH 30.2 MCHC 33.9 RDW 13.5 Plt Count 141 L MPV 11.2 Immature Gran % (Auto) 0.5 H Neut % (Auto) 85.1 H Lymph % (Auto) 3.3 L [place] % (Auto) 6.1 Eos % (Auto) 4.5 H Baso % (Auto) 0.5 Lymph # (Auto) 0.1 L [place] # (Auto) 0.3 Eos # (Auto) 0.2 Baso # (Auto) 0.0 Abs Immat Gran (auto) 0.02 Absolute Neuts (auto) 3.6 Absolute Nucleated RBC 0.000 Nucleated RBC % (auto) 0.0 Sodium 138 Potassium 3.0 L Chloride 105 Carbon Dioxide 24 Anion Gap 12 BUN 27 H Creatinine 1.10 Estim Creat Clear Calc 35.0 Estimated GFR 48 Random Glucose 203 H Estimat Average Glucose 120 Hemoglobin A1c % 5.8 Calcium 9.5 Total Bilirubin 1.4 H AST 527 H ALT 435 H Alkaline Phosphatase 93 Total Protein 5.5 L Albumin 3.3 L Triglycerides 86 Cholesterol 105 LDL Cholesterol, Calc 48 HDL Cholesterol 40 L Vitamin B12 1991 H Folate 12.6 TSH 0.85 Medications Medications Current Medications Acetaminophen (Acetaminophen 325 Mg Tablet) 650 mg PO Q6H PRN PRN Reason: Pain, Mild (Pain Scale 1-3) Last Admin: 05/19/24 08:25 Dose: 650 mg Al Hydroxide/Mg Hydroxide (Magnesium Hydrox/Alum Hydrox 30 Ml Oral.Susp) 30 ml PO Q6H PRN PRN Reason: Heartburn/Nausea Aspirin (Aspirin Enteric Coated 81 Mg Tablet.Dr) 81 mg PO DAILY [facility] Last Admin: 05/23/24 08:20 Dose: 81 mg Atorvastatin Calcium (Atorvastatin Calcium 20 Mg Tablet) 20 mg PO DAILY [facility] Last Admin: 05/23/24 08:20 Dose: 20 mg Bisacodyl (Bisacodyl 10 Mg Supp.Rect) 10 mg [place] DAILY PRN PRN Reason: Constipation Cyanocobalamin (Cyanocobalamin (Vitamin B-12) 1,000 Mcg Tablet) 1,000 mcg PO DAILY [facility] Last Admin: 05/23/24 08:20 Dose: 1,000 mcg Donepezil HCl (Donepezil Hcl 5 Mg Tablet) 5 mg PO DAILY [facility] Last Admin: 05/23/24 08:20 Dose: 5 mg Lorazepam (Lorazepam 0.5 Mg Tablet) 0.5 mg PO TID PRN PRN Reason: severe anxiety Last Admin: 05/22/24 23:54 Dose: 0.5 mg Magnesium Hydroxide (Milk Of Magnesia 30 Ml Oral.Susp) 30 ml PO DAILY PRN PRN Reason: Constipation Melatonin (Melatonin 3 Mg Tablet) 9 mg PO BEDTIME PRN PRN Reason: Insomnia Last Admin: 05/22/24 23:54 Dose: 9 mg Mirtazapine (Mirtazapine 7.5 Mg Tablet) 7.5 mg PO BEDTIME [facility] Last Admin: 05/22/24 22:16 Dose: 7.5 mg Nitrofurantoin Macrocrystals (Nitrofurantoin Macrocrystal 50 Mg Capsule) 100 mg PO Q6H [facility] Last Admin: 05/23/24 04:17 Dose: 100 mg Quetiapine Fumarate (Quetiapine Fumarate 25 Mg Tablet) 25 mg PO BEDTIME [facility] Last Admin: 05/22/24 22:16 Dose: 25 mg Risperidone (Risperidone Oral Anya 1 Mg/Ml Solution) 0.5 mg PO BID [facility] Last Admin: 05/22/24 22:21 Dose: 0.5 mg Sodium Biphosphate/Sodium Phosphate (Sodium Phosphate,[place]-Dibasic 133 Ml Enema) 133 ml [place] DAILY PRN PRN Reason: CONSTIPATION Trazodone HCl (Trazodone Hcl 50 Mg Tablet) 50 mg PO BEDTIME PRN PRN Reason: Insomnia Last Admin: 05/22/24 23:54 Dose: 50 mg Allergies Allergies Allergy/AdvReac Type Severity Reaction Status Date / Time ciprofloxacin Allergy Unknown Verified 05/18/24 09:00 codeine Allergy Unknown Verified 05/18/24 09:00 haloperidol [From Haldol] Allergy Unknown Verified 05/18/24 09:00 oxycodone Allergy Unknown Verified 05/18/24 09:00 risedronate sodium Allergy Unknown Verified 05/18/24 09:00 [From Actonel] tetracycline Allergy Unknown Verified 05/18/24 09:00 trazodone Allergy Unknown Verified 05/18/24 09:00 Assessment & Plan Assessment & Plan (1) Major neurocognitive disorder: Status: Acute Code(s): F03.90 - Unspecified dementia, unspecified severity, without behavioral disturbance, psychotic disturbance, mood disturbance, and anxiety Plan Mrs. Dennison is a 78 year-old woman with hx of dementia who was sent from [facility] where she was receiving STR due to combative behaviors. In the ED, pt found to have UTI. She presents as delirious superimposed on dementia. will schedule low dose risperidone 0.5mg po BID. continue other medications. PLAN 1. Admit to S1, Sect 12b, 1:1 due to fall risk 2. obtain collateral information 3. aftercare planning. 05/21 - nursing will contact hospitalist about antibiotic that could be given in food or liquid form otherwise CTP 05/22 CTP 05/23 continue tx. Reason for continued inpatient stay Substantial Risk for: inability to function Time Spent With Patient Time: Total time managing care of this patient today ____ minutes.
[2024-05-23] MEDS: risperiDONE Oral Sol 1 MG/ML SOLUTION 0.5 MG PO ×2 (08:26→21:34)
[2024-05-23 20:00] VITALS: BP 133/54; PULSE 99; RESP 18; TEMP 36; O2SAT 95
[2024-05-23] MEDS: QUEtiapine Fumarate 25 MG TABLET PO (21:35)
[2024-05-23] MEDS: Mirtazapine 7.5 MG TABLET PO (21:35)
[2024-05-23] MEDS: traZODone HCL 50 MG TABLET PO (21:35)
[2024-05-23] MEDS: Melatonin 3 MG TABLET 9 MG PO (23:42)
[2024-05-23] MEDS: LORazepam 0.5 MG TABLET PO (23:44)
[2024-05-24] MEDS: nitrofurantoin macrocrystaL 50 MG CAPSULE 100 MG PO ×4 (04:59→23:31)
[2024-05-24 08:00] VITALS: BP 106/58; PULSE 56; RESP 15; TEMP 36.2; O2SAT 95
[2024-05-24] MEDS: risperiDONE Oral Sol 1 MG/ML SOLUTION 0.5 MG PO ×2 (09:10→20:22)
[2024-05-24] MEDS: Aspirin Enteric Coated 81 MG TABLET.DR PO (09:10)
[2024-05-24] MEDS: Donepezil HCl 5 MG TABLET PO (09:10)
[2024-05-24] MEDS: Cyanocobalamin (Vitamin B-12) 1,000 MCG TABLET 1000 MCG PO (09:10)
[2024-05-24] MEDS: Atorvastatin Calcium 20 MG TABLET PO (09:10)
--- NOTE | 2024-05-24 11:33 | HO.PSYCHPN ---
Subjective Subjective Date of Service: 05/24/24 Reason For Visit: combative behaviors Interim History: Pt slept through the night. She continues to present as delirious superimposed on dementia. She was napping on and off. less combative but still very confused. she is taking medications as prescribed. No behavioral concerns. 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 memory/cog: alert, not oriented to place, month or year nor situation. severe cognitive impairments. Diagnostics Vital Signs (24Hr): Vital Signs - 24 hr 05/23/24 20:00 05/24/24 08:00 Temperature 96.8 F 97.2 F Pulse Rate 99 56 Respiratory Rate 18 15 Blood Pressure 133/54 L 106/58 L Pulse Oximetry 95 95 Oxygen Delivery Method Room Air Room Air BMI result Body Mass Index 19.9 Labs 05/21/24 10:03 05/21/24 10:03 Medications Medications Current Medications Acetaminophen (Acetaminophen 325 Mg Tablet) 650 mg PO Q6H PRN PRN Reason: Pain, Mild (Pain Scale 1-3) Last Admin: 05/19/24 08:25 Dose: 650 mg Al Hydroxide/Mg Hydroxide (Magnesium Hydrox/Alum Hydrox 30 Ml Oral.Susp) 30 ml PO Q6H PRN PRN Reason: Heartburn/Nausea Aspirin (Aspirin Enteric Coated 81 Mg Tablet.) 81 mg PO DAILY [facility] Last Admin: 05/24/24 09:10 Dose: 81 mg Atorvastatin Calcium (Atorvastatin Calcium 20 Mg Tablet) 20 mg PO DAILY [facility] Last Admin: 05/24/24 09:10 Dose: 20 mg Bisacodyl (Bisacodyl 10 Mg Supp.Rect) 10 mg [place] DAILY PRN PRN Reason: Constipation Cyanocobalamin (Cyanocobalamin (Vitamin B-12) 1,000 Mcg Tablet) 1,000 mcg PO DAILY [facility] Last Admin: 05/24/24 09:10 Dose: 1,000 mcg Donepezil HCl (Donepezil Hcl 5 Mg Tablet) 5 mg PO DAILY [facility] Last Admin: 05/24/24 09:10 Dose: 5 mg Lorazepam (Lorazepam 0.5 Mg Tablet) 0.5 mg PO TID PRN PRN Reason: severe anxiety Last Admin: 05/23/24 23:44 Dose: 0.5 mg Magnesium Hydroxide (Milk Of Magnesia 30 Ml Oral.Susp) 30 ml PO DAILY PRN PRN Reason: Constipation Melatonin (Melatonin 3 Mg Tablet) 9 mg PO BEDTIME PRN PRN Reason: Insomnia Last Admin: 05/23/24 23:42 Dose: 9 mg Mirtazapine (Mirtazapine 7.5 Mg Tablet) 7.5 mg PO BEDTIME [facility] Last Admin: 05/23/24 21:35 Dose: 7.5 mg Nitrofurantoin Macrocrystals (Nitrofurantoin Macrocrystal 50 Mg Capsule) 100 mg PO Q6H [facility] Last Admin: 05/24/24 04:59 Dose: 100 mg Quetiapine Fumarate (Quetiapine Fumarate 25 Mg Tablet) 25 mg PO BEDTIME [facility] Last Admin: 05/23/24 21:35 Dose: 25 mg Risperidone (Risperidone Oral Anya 1 Mg/Ml Solution) 0.5 mg PO BID [facility] Last Admin: 05/24/24 09:10 Dose: 0.5 mg Sodium Biphosphate/Sodium Phosphate (Sodium Phosphate,[place]-Dibasic 133 Ml Enema) 133 ml [place] DAILY PRN PRN Reason: CONSTIPATION Trazodone HCl (Trazodone Hcl 50 Mg Tablet) 50 mg PO BEDTIME PRN PRN Reason: Insomnia Last Admin: 05/23/24 21:35 Dose: 50 mg Allergies Allergies Allergy/AdvReac Type Severity Reaction Status Date / Time ciprofloxacin Allergy Unknown Verified 05/18/24 09:00 codeine Allergy Unknown Verified 05/18/24 09:00 haloperidol [From Haldol] Allergy Unknown Verified 05/18/24 09:00 oxycodone Allergy Unknown Verified 05/18/24 09:00 risedronate sodium Allergy Unknown Verified 05/18/24 09:00 [From Actonel] tetracycline Allergy Unknown Verified 05/18/24 09:00 trazodone Allergy Unknown Verified 05/18/24 09:00 Assessment & Plan Assessment & Plan (1) Major neurocognitive disorder: Status: Acute Code(s): F03.90 - Unspecified dementia, unspecified severity, without behavioral disturbance, psychotic disturbance, mood disturbance, and anxiety Plan Mrs. Dennison is a 78 year-old woman with hx of dementia who was sent from [facility] where she was receiving STR due to combative behaviors. In the ED, pt found to have UTI. She presents as delirious superimposed on dementia. will schedule low dose risperidone 0.5mg po BID. continue other medications. PLAN 1. Admit to S1, Sect 12b, 1:1 due to fall risk 2. obtain collateral information 3. aftercare planning. 05/21 - nursing will contact hospitalist about antibiotic that could be given in food or liquid form otherwise CTP 05/22 CTP 05/23 continue tx. 05/24 continue tx. Reason for continued inpatient stay Substantial Risk for: inability to function Time Spent With Patient Time: Total time managing care of this patient today ____ minutes.
[2024-05-24 20:00] VITALS: BP 111/56; PULSE 88; RESP 16; TEMP 36.9; O2SAT 97
[2024-05-24] MEDS: Mirtazapine 7.5 MG TABLET PO (20:22)
[2024-05-24] MEDS: QUEtiapine Fumarate 25 MG TABLET PO (20:22)
[2024-05-25] MEDS: nitrofurantoin macrocrystaL 50 MG CAPSULE 100 MG PO ×2 (05:29→12:20)
[2024-05-25 08:00] VITALS: BP 110/56; PULSE 82; RESP 18; TEMP 36.9; O2SAT 96
[2024-05-25] MEDS: risperiDONE Oral Sol 1 MG/ML SOLUTION 0.5 MG PO (12:29)
[2024-05-25] MEDS: Aspirin Enteric Coated 81 MG TABLET.DR PO (12:32)
[2024-05-25] MEDS: Atorvastatin Calcium 20 MG TABLET PO (12:32)
[2024-05-25] MEDS: Cyanocobalamin (Vitamin B-12) 1,000 MCG TABLET 1000 MCG PO (12:33)
[2024-05-25] MEDS: Donepezil HCl 5 MG TABLET PO (12:33)
[2024-05-25 14:40] VITALS: BMI 19.9
--- NOTE | 2024-05-25 14:55 | MHC.CLN ---
NUTRITION DIET=REGULAR, CHOPPED. ENSURE TID PROVIDES 1050 KCALS, 60 G PROTEIN. POOR PO >5 DAYS. USUAL INTAKE 0, BITES, 25%. SKIN WITH REDNESS TO BUTTOCKS. QUALIFIES MODERATELY MALNOURISHED IN THE CONTEXT OF CHRONIC ILLNESS. CONTINUE CURRENT DIET AND SUPPLEMENT. ENCOURAGE INTAKE AT MEALS AND SNACKS ABLE. SEE CLINICAL NUTRITION ASSESSMENT 05/25/24.
--- NOTE | 2024-05-25 16:35 | HO.PSYCHPN ---
Subjective Subjective Date of Service: 05/25/24 Reason For Visit: combative behaviors Subjective Notes: Conditional Voluntary Healthcare Proxy: Yes Interim History: Pt slept through the night. She was up in the morning, confused at baseline as to where she is or month. Noted labs on 05/21/2024 elevated LFTs AST 527, ALT 435. ordered repeat CMP, liver panel, ammonia, consult to GI. will stop macrobid as it can cause liver failure. Diagnostics Vital Signs (24Hr): Vital Signs - 24 hr 05/24/24 20:00 05/25/24 08:00 Temperature 98.4 F 98.4 F Pulse Rate 88 82 Respiratory Rate 16 18 Blood Pressure 111/56 L 110/56 L Pulse Oximetry 97 96 Oxygen Delivery Method Room Air Room Air BMI result Body Mass Index 19.9 Labs 05/21/24 10:03 05/25/24 17:06 Medications Medications Current Medications Acetaminophen (Acetaminophen 325 Mg Tablet) 650 mg PO Q6H PRN PRN Reason: Pain, Mild (Pain Scale 1-3) Last Admin: 05/19/24 08:25 Dose: 650 mg Al Hydroxide/Mg Hydroxide (Magnesium Hydrox/Alum Hydrox 30 Ml Oral.Susp) 30 ml PO Q6H PRN PRN Reason: Heartburn/Nausea Aspirin (Aspirin Enteric Coated 81 Mg Tablet.Dr) 81 mg PO DAILY [facility] Last Admin: 05/25/24 12:32 Dose: 81 mg Atorvastatin Calcium (Atorvastatin Calcium 20 Mg Tablet) 20 mg PO DAILY [facility] Last Admin: 05/25/24 12:32 Dose: 20 mg Bisacodyl (Bisacodyl 10 Mg Supp.Rect) 10 mg MS DAILY PRN PRN Reason: Constipation Cyanocobalamin (Cyanocobalamin (Vitamin B-12) 1,000 Mcg Tablet) 1,000 mcg PO DAILY [facility] Last Admin: 05/25/24 12:33 Dose: 1,000 mcg Donepezil HCl (Donepezil Hcl 5 Mg Tablet) 5 mg PO DAILY [facility] Last Admin: 05/25/24 12:33 Dose: 5 mg Magnesium Hydroxide (Milk Of Magnesia 30 Ml Oral.Susp) 30 ml PO DAILY PRN PRN Reason: Constipation Melatonin (Melatonin 3 Mg Tablet) 9 mg PO BEDTIME PRN PRN Reason: Insomnia Last Admin: 05/23/24 23:42 Dose: 9 mg Mirtazapine (Mirtazapine 7.5 Mg Tablet) 7.5 mg PO BEDTIME [facility] Last Admin: 05/24/24 20:22 Dose: 7.5 mg Nitrofurantoin Macrocrystals (Nitrofurantoin Macrocrystal 50 Mg Capsule) 100 mg PO Q6H [facility] Last Admin: 05/25/24 16:27 Dose: 100 mg Quetiapine Fumarate (Quetiapine Fumarate 25 Mg Tablet) 25 mg PO BEDTIME [facility] Last Admin: 05/24/24 20:22 Dose: 25 mg Risperidone (Risperidone Oral Anya 1 Mg/Ml Solution) 0.5 mg PO BID [facility] Last Admin: 05/25/24 12:29 Dose: 0.5 mg Sertraline HCl (Sertraline Hcl 25 Mg Tablet) 25 mg PO DAILY [facility] Sodium Biphosphate/Sodium Phosphate (Sodium Phosphate,[place]-Dibasic 133 Ml Enema) 133 ml MS DAILY PRN PRN Reason: CONSTIPATION Trazodone HCl (Trazodone Hcl 50 Mg Tablet) 50 mg PO BEDTIME PRN PRN Reason: Insomnia Last Admin: 05/23/24 21:35 Dose: 50 mg Allergies Allergies Allergy/AdvReac Type Severity Reaction Status Date / Time ciprofloxacin Allergy Unknown Verified 05/18/24 09:00 codeine Allergy Unknown Verified 05/18/24 09:00 haloperidol [From Haldol] Allergy Unknown Verified 05/18/24 09:00 oxycodone Allergy Unknown Verified 05/18/24 09:00 risedronate sodium Allergy Unknown Verified 05/18/24 09:00 [From Actonel] tetracycline Allergy Unknown Verified 05/18/24 09:00 trazodone Allergy Unknown Verified 05/18/24 09:00 Assessment & Plan Assessment & Plan (1) Major neurocognitive disorder: Status: Acute Code(s): F03.90 - Unspecified dementia, unspecified severity, without behavioral disturbance, psychotic disturbance, mood disturbance, and anxiety Plan Mrs. Dennison is a 78 year-old woman with hx of dementia who was sent from [facility] where she was receiving STR due to combative behaviors. In the ED, pt found to have UTI. She presents as delirious superimposed on dementia. will schedule low dose risperidone 0.5mg po BID. continue other medications. PLAN 1. Admit to S1, Sect 12b, 1:1 due to fall risk 2. obtain collateral information 3. aftercare planning. 05/21 - nursing will contact hospitalist about antibiotic that could be given in food or liquid form otherwise CTP 05/22 CTP 05/23 continue tx. 05/24 continue tx. 05/25 noted elevated LFT on 05/21 in 500's. Ordered repeat labs including cmp, liver panel, ammonia, hep panel, consult to GI, will stop macrobid as it can cause liver failure. Reason for continued inpatient stay Substantial Risk for: inability to function Time Spent With Patient Time: Total time managing care of this patient today ____ minutes.
[2024-05-25 17:16] LABS: Ammonia 56 umol/L (13-55)
[2024-05-25 17:27] LABS: Alanine Aminotransferase 706 U/L (0-31); Albumin Level 3.4 g/dL (3.5-5.0); Alkaline Phosphatase 278 U/L (39-117); Anion Gap 14 (12-20); Aspartate Amino Transferase 550 U/L (5-31); Bilirubin Direct 0.7 mg/dL (0.0-0.5); Bilirubin Total 1.3 mg/dL (0.0-1.0); Blood Urea Nitrogen 33 mg/dL (9-16); Calcium 10.6 mg/dL (8.4-10.2); Carbon Dioxide 28 mmol/L (22-29); Chloride 104 mmol/L (96-108); Creatinine Clr Calc Pharmacy 51.4; Estimated Glomerular Filt Rate > 60; Glucose Random 194 mg/dL (60-115); Potassium 3.6 mmol/L (3.3-5.1); Sodium 142 mmol/L (135-145); Total Protein 6.1 g/dL (6.5-8.0)
--- NOTE | 2024-05-25 17:29 | PC.NURSE ---
Patient is alert, oriented to self only. Emotional, anxious, resistive to care at am. Initially refused her AM meds despite multiple attempts, later on accepted them all. Medical provider Kenzie hernandez). Patient's mood gradually improved during shift. New order for Zoloft 25 mg daily starting tomorrow. Pt is visible in a milieu. Utilizing w/c for transfers. Poor appetite; 25% for breakfast and bites for lunch. Drinking Ensure and fluids well. Continues 1:1 for safety. New orders: Nitrofurantoin D/Cd, Stat labs: CMP, Hep A,B,C Profile, Ammonia, Liver Panel urgent, consult to gastroenterology/routine. Labs notified. [ End ]
--- NOTE | 2024-05-25 19:17 | PM.EVENT ---
Event Note Date of Service: 05/25/24 Event Note: Concrete Finisher reviewed labs Over past 4 days, Lft?s spiking AST 82 to 550 ALT 46 to 706 Alk-phos 60 to 278 Discussed with hospitalist and patient will be medically admitted Time Spent With Patient Time: Total time managing care of this patient today ____ minutes.
--- NOTE | 2024-05-25 19:24 | P.DS_ITS ---
DS: Providers Provider Date of Service: 05/25/24 Date of admission: 05/19/24 20:08 Date of discharge: 05/25/24 Primary care physician: Carlos A Orozco MD Admitting clinician: Kenzie Chang Consults: 05/25/24 16:47 Consult to Gastroenterology Routine Consulting Provider: Juan Kimble Reason for consultation: LFT elevation in 500s Has provider been notified: Yes 05/25/24 19:01 Consult to Hospitalist Routine Comment: [place] [facility] [place] Reason For Exam: rising LFT's Attending physician on discharge: Blanco King DS: Diagnosis Discharge Diagnosis (1) Major neurocognitive disorder: Status: Acute DS: Medications Discharge Medications Home Medications: Home Medications ?Medication ?Instructions ?Recorded ?Confirmed aspirin 81 mg capsule 81 mg PO DAILY 05/18/24 05/18/24 atorvastatin 20 mg tablet 20 mg PO DAILY 05/18/24 05/18/24 bisacodyl 10 mg rectal suppository 10 mg NM DAILY PRN Constipation 05/18/24 05/18/24 cyanocobalamin (vitamin B-12) 1,000 mcg PO DAILY Supplement 05/18/24 05/18/24 1,000 mcg tablet divalproex 250 mg tablet,delayed 250 mg PO BID 05/18/24 05/18/24 release (Depakote) donepezil 5 mg tablet 5 mg PO DAILY 05/18/24 05/18/24 magnesium hydroxide 400 mg/5 mL 30 ml PO DAILY PRN Constipation 05/18/24 05/18/24 oral suspension (Milk of Magnesia) melatonin 5 mg tablet 10 mg PO BEDTIME PRN Insomnia 05/18/24 05/18/24 mirtazapine 7.5 mg tablet 7.5 mg PO BEDTIME 05/18/24 05/18/24 multivitamin with minerals 1 cap PO DAILY 05/18/24 05/18/24 naloxone 4 mg/actuation nasal 4 mg intranasal Q3M PRN Opiate 05/18/24 05/18/24 spray (Narcan) Reversal quetiapine 25 mg tablet 25 mg PO BEDTIME 05/18/24 05/18/24 sodium phosphates 19 gram-7 118 ml NM NEEDED Constipation 05/18/24 05/18/24 gram/118 mL enema (Fleet Enema) Previous Rx's ?Medication ?Instructions ?Recorded aluminum-magnesium hydroxide 200 30 ml PO Q6H PRN Heartburn/Nausea 05/25/24 mg-200 mg/5 mL oral suspension #0 mL (MAG-AL) magnesium hydroxide 400 mg/5 mL 30 ml PO DAILY PRN Constipation #0 05/25/24 oral suspension (Milk of Magnesia) mL melatonin 3 mg tablet 9 mg (3 x 3 mg) PO BEDTIME PRN 05/25/24 Insomnia #0 tabs risperidone 1 mg/mL oral solution 0.5 mg (0.5 mL) PO BID #0 mL 05/25/24 (Risperdal) sodium phosphates 19 gram-7 133 ml NM DAILY PRN CONSTIPATION 05/25/24 gram/118 mL enema (Fleet Enema) #0 mL Mental Status Exam Mental Status Exam Narrative: Transferred to medical floor Data Data Completed and Pending Completed studies during hospitalization [Text1]: 05/18/24 05/19/24 05/20/24 10:13 17:41 05:49 WBC RBC Hgb Hct MCV MCH MCHC RDW Plt Count MPV Immature Gran % (Auto) Neut % (Auto) Lymph % (Auto) [place] % (Auto) Eos % (Auto) Baso % (Auto) Lymph # (Auto) [place] # (Auto) Eos # (Auto) Baso # (Auto) Abs Immat Gran (auto) Absolute Neuts (auto) Absolute Nucleated RBC Nucleated RBC % (auto) Sodium 143 Potassium 3.2 L Chloride 105 Carbon Dioxide 27 Anion Gap 14 BUN 13 Creatinine 0.59 Estim Creat Clear Calc 65.4 Estimated GFR > 60 POC Glucose 110 Random Glucose 115 Estimat Average Glucose Hemoglobin A1c % Calcium 9.4 Total Bilirubin 1.4 H Direct Bilirubin AST 82 H ALT 46 H Alkaline Phosphatase 60 Ammonia Total Protein 6.2 L Albumin 3.8 Triglycerides Cholesterol LDL Cholesterol, Calc HDL Cholesterol Vitamin B12 Folate TSH Urine Opiates Screen Not Detected Ur Buprenorphine Scrn Not Detected Ur Oxycodone Screen Not Detected Urine Methadone Screen Not Detected Urine Fentanyl Screen Not Detected Ur Barbiturates Screen Not Detected Ur Phencyclidine Scrn Not Detected Ur Amphetamines Screen Not Detected U Benzodiazepines Scrn Not Detected Urine Cocaine Screen Not Detected U Marijuana (THC) Screen Not Detected 05/21/24 05/25/24 05/25/24 10:03 17:05 17:06 WBC 4.2 L RBC 4.34 Hgb 13.1 Hct 38.7 MCV 89.2 MCH 30.2 MCHC 33.9 RDW 13.5 Plt Count 141 L MPV 11.2 Immature Gran % (Auto) 0.5 H Neut % (Auto) 85.1 H Lymph % (Auto) 3.3 L [place] % (Auto) 6.1 Eos % (Auto) 4.5 H Baso % (Auto) 0.5 Lymph # (Auto) 0.1 L [place] # (Auto) 0.3 Eos # (Auto) 0.2 Baso # (Auto) 0.0 Abs Immat Gran (auto) 0.02 Absolute Neuts (auto) 3.6 Absolute Nucleated RBC 0.000 Nucleated RBC % (auto) 0.0 Sodium 138 142 Potassium 3.0 L 3.6 Chloride 105 104 Carbon Dioxide 24 28 Anion Gap 12 14 BUN 27 H 33 H Creatinine 1.10 0.75 Estim Creat Clear Calc 35.0 51.4 Estimated GFR 48 > 60 POC Glucose Random Glucose 203 H 194 H Estimat Average Glucose 120 Hemoglobin A1c % 5.8 Calcium 9.5 10.6 H D Total Bilirubin 1.4 H 1.3 H Direct Bilirubin 0.7 H AST 527 H 550 H ALT 435 H 706 H Alkaline Phosphatase 93 278 H Ammonia 56 H Total Protein 5.5 L 6.1 L Albumin 3.3 L 3.4 L Triglycerides 86 Cholesterol 105 LDL Cholesterol, Calc 48 HDL Cholesterol 40 L Vitamin B12 1991 H Folate 12.6 TSH 0.85 Urine Opiates Screen Ur Buprenorphine Scrn Ur Oxycodone Screen Urine Methadone Screen Urine Fentanyl Screen Ur Barbiturates Screen Ur Phencyclidine Scrn Ur Amphetamines Screen U Benzodiazepines Scrn Urine Cocaine Screen U Marijuana (THC) Screen 05/18/24 Unknown Urine Catheterized - Straight Catheter Urine Culture - Final Enterobacter cloacae complex DS: Summary Hospital Course Hospital Course: Mrs. Dennison is 78 year-old woman with dementia who resides at [facility]. She was brought via EMS due to increase combative behaviors, entering to other people's room, intrusive and increase aggression. In the ED, pertinent labs include CBC without leukocytosis, no anemia. CMP without electrolyte abnormalities, BUN 15, Cr 0.69, creatinine clearance 55.8. AST 34, ALT 23, ammonia 23, UA with nitrite, leukocytes and bacteria. Pt seen in the ED. She presents as very fearful and anxious. She is not able to tell where she is nor the month or the year. She think she knows this financial writer and thanks me for coming to see her. She holds my hand and this seems to calm her down. Her thought process is with derailment and speech is mostly unintelligible. She says just come back like last time. On the unit, pt presents as combative, throwing cups at staff, yelling at staff and attempted to scratch staff when they were doing vital signs. This related to confusion. She is not oriented to place, month, year nor situation. Her attention is poor. She appears delirious in addition to underlying dementia. Past Psychiatric History: Inpt: none On 05/25 reviewed labs and Over past 4 days, Lft?s spiking AST 82 to 550 ALT 46 to 706 Alk-phos 60 to 278 Discussed with hospitalist and patient medically admitted Time spent discussing smoking cessation with patient: 3 to 10 minutes Status at Discharge Overall status at discharge: patient is not back to baseline Time Spent with Patient Time attestation: Total time managing care of this patient today ____ minutes. Time spent: Less than 30 minutes Discharge Plan Discharge Anticipated Discharge Date/Time: 05/25/24 19:24 Patient Disposition: Xfer Other Discharge Diagnosis: dementia, unspecified Referrals: [facility] [Other] - 1 Week Carlos A Orozco MD [Primary Care Provider] - 1 Week Discharge Medications: New melatonin 3 mg Tablet 9 mg PO BEDTIME PRN (Reason: Insomnia) Qty: 0 0RF magnesium hydroxide [Milk of Magnesia] 400 mg/5 mL Suspension 30 ml PO DAILY PRN (Reason: Constipation) Qty: 0 0RF risperidone [Risperdal] 1 mg/mL Solution 0.5 mg PO BID Qty: 0 0RF Fleet Enema 19-7 gram/118 mL Enema 133 ml NM DAILY PRN (Reason: CONSTIPATION) Qty: 0 0RF MAG-AL 200-200 mg/5 mL Suspension 30 ml PO Q6H PRN (Reason: Heartburn/Nausea) Qty: 0 0RF Continued quetiapine 25 mg Tablet 25 mg PO BEDTIME donepezil 5 mg tablet 5 mg PO DAILY divalproex [Depakote] 250 mg Tablet,Delayed Release (Dr/Ec) 250 mg PO BID cyanocobalamin (vitamin B-12) 1,000 mcg Tablet 1,000 mcg PO DAILY bisacodyl 10 mg Suppository 10 mg NM DAILY PRN (Reason: Constipation) Rx Instructions: For no BM if M.O.M ineffective. Fleet Enema 19-7 gram/118 mL Enema 118 ml NM NEEDED Rx Instructions: for no BM &If Bisacodyl supp. ineffective. mirtazapine 7.5 mg Tablet 7.5 mg PO BEDTIME melatonin 5 mg Tablet 10 mg PO BEDTIME PRN (Reason: Insomnia) aspirin 81 mg Capsule 81 mg PO DAILY magnesium hydroxide [Milk of Magnesia] 400 mg/5 mL Suspension 30 ml PO DAILY PRN (Reason: Constipation) multivitamin with minerals Capsule 1 cap PO DAILY naloxone [Narcan] 4 mg/actuation [place],Non-Aerosol 4 mg INTRANASAL Q3M PRN (Reason: Opiate Reversal) Rx Instructions: spray 1 dose into ONE nostril; alternate nostrils w each dose until help arrives Held atorvastatin 20 mg tablet 20 mg PO DAILY Hold Instructions: Resume on 06/22/24. HOLD UNTIL PROVIDER RESTARTS Discontinued acetaminophen 325 mg Tablet 650 mg PO Q4H PRN (Reason: Pain) Discharge Orders: Discharge Order (Routine); Ordered 05/25/24 Ordered By: Blanco King Diet: per medical team Activity on Discharge: As tolerated Stand Alone Forms: Patient Portal Discharge page Print Language: Tu[place]uan Care Plan Goals: Transferred to medical floor Health Concerns: Transferred to medical floor Plan of Treatment: Transferred to medical floor Assessment: Transferred to medical floor
--- NOTE | 2024-05-25 20:07 | PC.NURSE ---
At 18:10 abnormal lab results texted by luigi to the manager of business operations DR Blanco King. DR Vivas came later to the floor and stated the pt will go to the medical floor. Report given to the charge nurse Kristina /med.floor.
== END 2024-05-25 20:51 | disposition short-term general hospital (02) | DRG 884 ==
LOC: HO.ED 16:13 → HO.PGERI 05-19 20:09
PROVIDERS: Admitting Provider Social Worker; Emergency Provider Emergency Medicine; PCP Family Medicine; Visit Provider Social Worker
DX: F03.911 Unspecified dementia, unspecified severity, with agitation (principal); F05 Delirium due to known physiological condition; N39.0 Urinary tract infection, site not specified; Z20.822 Contact with and (suspected) exposure to COVID-19; Z87.891 Personal history of nicotine dependence; Z79.82 Long term (current) use of aspirin; Z79.899 Other long term (current) drug therapy
CPT/HCPCS: 0241U; 36415; 80053; 80061; 80307; 81001; 82140; 82248; 82607; 82746; 82947; 83036; 83735; 84443; 85025; 87086; 87088; 87186; 93005; 99285; J1885; J2359; S9485

== ENCOUNTER → 2024-05-19 07:57 | Outpatient (BNV) | payer MEDICARE, SELFPAY | PROVIDERS: Admitting Provider Social Worker; Emergency Provider Emergency Medicine; PCP Family Medicine; Visit Provider Internal Medicine Cardiovascular Disease | DX: Z13.6 Encounter for screening for cardiovascular disorders (principal) | CPT/HCPCS: 93010 ==

== ENCOUNTER → 2024-05-19 20:08 | Outpatient (BNV) | payer MEDICARE, SELFPAY | PROVIDERS: Admitting Provider Social Worker; Emergency Provider Emergency Medicine; PCP Family Medicine; Visit Provider Psychiatry & Neurology Psychiatry | DX: F03.90 Unspecified dementia, unspecified severity, without behavioral disturbance, psychotic disturbance, mood disturbance, and anxiety (principal) | CPT/HCPCS: 90792; 99499 ==

== ENCOUNTER 2024-05-25 20:54 | Outpatient (BNV) | payer MEDICARE, SELFPAY | END 2024-05-25 21:10 | PROVIDERS: Admitting Provider Student in an Organized Health Care Education/Training Program; Visit Provider Radiology Diagnostic Radiology | DX: R74.01 Elevation of levels of liver transaminase levels (principal); N28.1 Cyst of kidney, acquired | CPT/HCPCS: 74176 ==

== ENCOUNTER 2024-05-25 20:54 | Inpatient (IN) | payer MEDICARE, SELFPAY ==
--- NOTE | ~2024-05-25 | CT_ITS ---
CLINICAL HISTORY: Transaminitis, ?obstructive stone CT Abdomen and Pelvis WO Contrast COMPARISON: None FINDINGS: Normal liver. Normal spleen. Left renal cyst. Unremarkable right kidney. No hydronephrosis. Normal adrenal glands. Normal pancreas. Status post cholecystectomy. No abnormal biliary dilation. No visible choledocholithiasis. No evidence of bowel obstruction or colitis. The appendix is not identified, however, no secondary signs of acute appendicitis. Unremarkable bladder. Status post hysterectomy. No ascites. No pneumoperitoneum. No lymphadenopathy. No acute fracture. Degenerative changes in the spine. Osteopenia. Mild chronic appearing T9 and T10 compression fractures. No abdominal aortic aneurysm. Atherosclerosis. Elevation of the right hemidiaphragm. IMPRESSION: No acute findings. Nonemergent/incidental findings above. This document has been electronically signed by: Robin Penaloza MD on 05/25/2024 21:51:17
--- NOTE | 2024-05-25 19:38 | PM.IMHP ---
History of Present Illness Date of Service: 05/25/24 Attending physician on admission: Yecenia Bernal Chief Complaint: Elevated LFTs Pt is a 25-mlpc-bfu-female with a PMH significant for Alzheimer's dementia, HLD, and PVD who was [facility] for increased agitation and aggressive behavior. Has apparently been combative towards both staff and residents at [facility]. While on the unit pt's LTFs have been noted to have been consistently increasing, from WNL on 05/18 to AST 82 and ALT 46 on 05/19 to T bili 1.3, AST 550, ALT 706, and alk phos 278 earlier today. Pt herself has severe dementia and is unable to provide meaningful HPI or ROS, though does not appear to have any acute complaints. According to nursing pt has had reduced po intake the past two days, but no N/V/D nor any significant deviation from baseline. Has not appeared acutely ill or with GI/abd complaints. Pt was treated with Macrobid for UTI starting 05/18. On 05/21 pt was started on low-dose risperadone. Review of Systems Review of Systems: Pt with advanced dementia at baseline, unable to answer questions appropriately. Yes Unobtainable due to mental condition [facility] Medical History PVD (peripheral vascular disease) Diabetes Diverticulosis Hyperlipidemia HTN (hypertension) UTI (urinary tract infection) Dementia Social History Household Members: Other Housing: [facility] Do you presently have visiting nurse or other home services: No Comment: 1:1for safety Patient Tobacco Use Status: Former Tobacco user Tobacco use type: Cigarette Use of substances other than those prescribed or required for medical reasons: No Have you been hit, kicked, punched, or otherwise hurt by someone within the past year? If so, by whom?: No Do you feel safe in your current relationship?: Yes Is there a partner from a previous relationship who is making you feel unsafe now?: No Are you made to feel afraid or neglected: No Advance Directives: No Advance Directives Information Provided: No Do you have a plan to hurt others: No Plan Recently lost weight without trying: No Nutrition Risks: Difficulty chewing Patient : No : No Poor oral hygiene: No service: No Sexual orientation: Straight/Heterosexual Meds Allergies Allergy/AdvReac Type Severity Reaction Status Date / Time ciprofloxacin Allergy Unknown Verified 05/18/24 09:00 codeine Allergy Unknown Verified 05/18/24 09:00 haloperidol [From Haldol] Allergy Unknown Verified 05/18/24 09:00 oxycodone Allergy Unknown Verified 05/18/24 09:00 risedronate sodium Allergy Unknown Verified 05/18/24 09:00 [From Actonel] tetracycline Allergy Unknown Verified 05/18/24 09:00 trazodone Allergy Unknown Verified 05/18/24 09:00 Active Medications: Current Medications Lactated Ringer's (Lr) 1,000 mls @ 150 mls/hr IVCONT .Q6H40M FAVIOLA Stop: 05/26/24 02:24 Home Medications ?Medication ?Instructions ?Recorded ?Confirmed ?Last Taken ?Type aspirin 81 mg capsule 81 mg PO DAILY 05/18/24 05/18/24 Unknown History atorvastatin 20 mg tablet 20 mg PO DAILY 05/18/24 05/18/24 Unknown History bisacodyl 10 mg rectal suppository 10 mg [place] DAILY PRN Constipation 05/18/24 05/18/24 Unknown History cyanocobalamin (vitamin B-12) 1,000 mcg PO DAILY Supplement 05/18/24 05/18/24 Unknown History 1,000 mcg tablet divalproex 250 mg tablet,delayed 250 mg PO BID 05/18/24 05/18/24 Unknown History release (Depakote) donepezil 5 mg tablet 5 mg PO DAILY 05/18/24 05/18/24 Unknown History magnesium hydroxide 400 mg/5 mL 30 ml PO DAILY PRN Constipation 05/18/24 05/18/24 Unknown History oral suspension (Milk of Magnesia) melatonin 5 mg tablet 10 mg PO BEDTIME PRN Insomnia 05/18/24 05/18/24 Unknown History mirtazapine 7.5 mg tablet 7.5 mg PO BEDTIME 05/18/24 05/18/24 Unknown History multivitamin with minerals 1 cap PO DAILY 05/18/24 05/18/24 Unknown History naloxone 4 mg/actuation nasal 4 mg intranasal Q3M PRN Opiate 05/18/24 05/18/24 Unknown History spray (Narcan) Reversal quetiapine 25 mg tablet 25 mg PO BEDTIME 05/18/24 05/18/24 Unknown History sodium phosphates 19 gram-7 118 ml [place] NEEDED Constipation 05/18/24 05/18/24 Unknown History gram/118 mL enema (Fleet Enema) Physical Exam Vital Signs and Narrative: General: Awake and alert. Not oriented to place, time, or situation. Unable to answer most questions appropriately. Resp: CTA bilaterally CVS: S1, S2, RRR GI: +BS, NT, no distention Skin: Warm, dry Neuro: Cranial nerves II-XII grossly intact bilaterally. Motor grossly intact bilaterally Extremities: No edema Psych: Agitated, confused Assessment and Plan (1) Transaminitis: Status: Acute Plan Pt is a 77-hjuu-hkc-female with a PMH significant for Alzheimer's dementia, HLD, and PVD who was [facility] for increased agitation and aggressive behavior. Has apparently been combative towards both staff and residents at [facility]. While on the unit pt's LTFs have been noted to have been consistently increasing. Pt will be brought to the medical floor for treatment and further evaluation of transaminitis. Transaminitis Tbili 1.3, AST 550, ALT 706, alk phos 278, elevated from WNL on 05/18/2024 Unclear etiology: Obstructive vs iatrogenic Abdominal exam benign, pt without N/V or abdominal pain; has had reduced p.o. intake the past 2 days Recently started on risperidone and course of Macrobid for UTI Will check CT of abdomen/pelvis GI consult Hold aspirin, statin, Tylenol, risperidone, and quetiapine Will give 1L IVF Trend labs HLD Statin on hold due to transaminitis PVD Hold aspirin due to transaminitis Alzheimer's dementia with behavioral disturbances Hold risperidone, quetiapine, and donepezil due to transaminitis Psych consult DNR/DNI Attending:?Dr. Bernal DVT Prophylaxis: Lovenox Pt will require a hospitalization of at least two nights for treatment and further evaluation of acute transaminitis of unclear etiology: concerning for obstruction vs iatrogentic that will require close monitoring of labs and vitals, administration of IVF and IV medications as necessary, as well as specialist consultation with GI that cannot be done on the psychiatry unit. Quality Stroke Does the patient have a stroke diagnosis?: No VTE Prior VTE?: No VTE Risk Level:: Medical - moderate - high VTE Device Contraindication: Treatment Not Indicated VTE Drug Contraindication: N/A - Med Ordered
--- OUTSIDE RECORDS SUMMARY | 2024-05-25 20:57 | XMS_ITS | Clinical Summary ---
Author Organization [address] Address [address] [place] [address] Phone Care Team Providers Care Licensed Customs Broker Name Role Phone Hafsa Torre ARIEL Primary Care Provider +1- [phone] Medications amLODIPine (NORVASC) 5 mg tablet TAKE ONE TABLET BY MOUTH EVERY DAY 90 tablet 03/30/2024 Active Encounters Date Type Department Care Team Description 05/17/2024 Lab Requisition [facility] [address] [place] [id number] Carlos A Orozco MD Unspecified dementia, unspecified severity, without behavioral disturbance, psychotic disturbance, mood disturbance, and anxiety ([facility] V24, [facility] V28); Essential (primary) hypertension; Atherosclerotic heart disease of [place] coronary artery without angina pectoris 05/10/2024 Lab Requisition [facility] [address] [place] [phone] Carlos A Orozco MD Unspecified dementia, unspecified severity, without behavioral disturbance, psychotic disturbance, mood disturbance, and anxiety ([facility] V24, [facility] V28); Essential (primary) hypertension; Atherosclerotic heart disease of [place] coronary artery without angina pectoris 05/03/2024 Lab Requisition [facility] Lab [address] [place] [address] Carlos A Orozco MD Unspecified dementia, unspecified severity, without behavioral disturbance, psychotic disturbance, mood disturbance, and anxiety ([facility] V24, [facility] V28); Essential (primary) hypertension; Atherosclerotic heart disease of [place] coronary artery without angina pectoris from Last [...] hypertension Hypercholesterolemia DX:Hypercho lesterolemia Osteoporosis DX:Osteoporosis Diabetes (CMS/HCC V24, CMS/HCC V28) DX:Diabetes (HCC) Colon polyps DX:Colon polyps Fatty liver DX:Fatty liver Rosacea DX:Rosacea Urinary incontinence DX:Urinary incontinence Angina pectoris ([facility] V24) DX :Angina pectoris (HCC) Diverticulosis DX:Diverticulosi s Glaucoma DX:Glaucoma Tubular [...] Essential (primary) hypertension Atherosclerotic heart disease of [place] coronary artery without angina pectoris COMPLETE BLOOD COUNT Routine 05/11/2024 6:48 AM EDT Unspecified dementia, unspecified severity, without behavioral disturbance, psychotic disturbance, mood disturbance, and anxiety (CMS/HCC) Essential (primary) hypertension Atherosclerotic heart disease of [place] coronary artery without angina pectoris BASIC METABOLIC PANEL Routine 05/04/2024 8:13 AM EDT Unspecified dementia, unspecified severity, without behavioral disturbance, psychotic disturbance, mood disturbance, and anxiety (CMS/HCC) Essential (primary) hypertension Atherosclerotic heart disease of [place] coronary artery without angina pectoris COMPLETE BLOOD COUNT Routine 05/04/2024 8:13 AM EDT Unspecified dementia, unspecified severity, without behavioral disturbance, psychotic disturbance, mood disturbance, and anxiety (CMS/HCC) Essential (primary) hypertension Atherosclerotic heart disease of [place] coronary artery without angina pectoris from Last 3 Months Results * (ABNORMAL) Complete blood count (05/11/2024 6:48 AM EDT) Only the most recent of2 resultswithin the time period is included. WBC 8.8 4.8 - 10.8 K/mcL LAB HEMETOLOGY METHOD 05/11/2024 12:44 PM T [facility] RBC 4.90(H) 3.80 - 4.80 M/mcL LAB HEMETOLOGY METHOD 05/11/2024 12:44 PM EDT [facility] Hemoglobin 14.5 11.5 - 16.0 g/dL LAB HEMETOLOGY METHOD 05/11/2024 12:44 PM [facility] LAB Hematocrit 46.0 35.0 - 47.0 % LAB HEMETOLOGY METHOD 05/11/2024 12:44 PM EDT [facility] MCV 94.7 79.0 - 98.0 FL LAB HEMETOLOGY METHOD 05/11/2024 12:44 PM EDT [facility] MCH 29.8 27.0 - 32.0 pcg LAB HEMETOLOGY METHOD 05/11/2024 12:44 PM EDT [facility] LAB MCHC 31.5(L) 32.0 - 37.0 g/dL LAB HEMETOLOGY METHOD 05/11/2024 12:44 PM EDT [facility] RDW 13.6 11.0 - 15.0 % LAB HEMETOLOGY METHOD 05/11/2024 12:44 PM EDT [facility] LAB Platelets 251 130 - 400 K/mcL LAB HEMETOLOGY METHOD 05/11/2024 12:44 PM EDT [facility] MPV 11.1(H) 7.0 - 11.0 FL LAB HEMETOLOGY METHOD 05/11/2024 12:44 PM EDT [facility] NRBC 0.0 <1.0 % LAB HEMETOLOGY METHOD 05/11/2024 12:44 PM EDT [facility] LAB NRBC Absolute 0.00 <0.10 K/mcL LAB HEMETOLOGY METHOD 05/11/2024 12:44 PM EDT [facility] Blood Venous blood specimen / Unknown Venipuncture / Unknown 05/11/2024 6:48 AM EDT 05/11/2024 12:10 PM EDT us Carlos A Orozco MD LAB BLOOD ORDERABLES Final Resul t [facility] [address] [place] [address], * (ABNORMAL) Basic metabolic panel (05/11/2024 6:48 AM EDT) Only the most recent of2 resultswithin the time period is included. Sodium 141 133 - 145 mmol/L LAB CHEMISTRY METHOD 05/11/2024 1:07 PM [facility] Potassium 3.6 3.5 - 5.5 mmol/L LAB CHEMISTRY METHOD 05/11/2024 1:07 PM [facility] LAB Chloride 105 96 - 110 mmol/L LAB CHEMISTRY METHOD 05/11/2024 1:07 PM [facility] CO2 27 21 - 32 mmol/L LAB CHEMISTRY METHOD 05/11/2024 1:07 PM [facility] Anion Gap 9 3 - 11 LAB CHEMISTRY METHOD 05/11/2024 1:07 PM [facility] Glucose 101(H) 70 - 100 mg/dL LAB CHEMISTRY METHOD 05/11/2024 1:07 PM [facility] BUN 17 5 - 25 mg/dL LAB CHEMISTRY METHOD 05/11/2024 1:07 PM [facility] Creatinine 0.64 0.50 - 1.10 mg/dL LAB CHEMISTRY METHOD 05/11/2024 1:07 PM [facility] LAB eGFR 91 >=60 mL/min/1. 73m2 LAB CHEMISTRY METHOD 05/11/2024 1:07 PM [facility] LAB Comment:Calculation based on the??Chronic Kidney Disease Epidemiology Collaboration (CKD-EPI) equation refit??without adjustment for race. BUN/Creatinine Ratio 26.6 LAB CHEMISTRY METHOD 05/11/2024 1:07 PM [facility] Calcium 10.1 8.5 - 10.5 mg/dL LAB CHEMISTRY METHOD 05/11/2024 1:07 PM [facility] Blood Venous blood specimen / Unknown Venipuncture / Unknown 05/11/2024 6:48 AM EDT 05/11/2024 12:10 PM EDT us Carlos A Orozco MD LAB BLOOD ORDERABLES Final Resul t [facility] [address] [place] [address], from Last 3 Months Insurance MEDICARE Care Teams Licensed Customs Broker Relationship Specialty Start Date End Date Hafsa Torre NP [address] [place] [address] PCP - General 06/17/21
--- OUTSIDE RECORDS SUMMARY | 2024-05-25 20:57 | XMS_ITS | Encounter Summary ---
Author Organization [facility] Address [address] [place] [phone] Care Team Providers Care Retail Loan Officer Name Role Phone Hafsa Torre METALIZER Primary Care Provider +1- [phone] Encounter Details Date Type Department Care Team (Late st Contact Info) Description 05/10/2024 Lab Requisition [facility] Lab [address] [facility] [place] [address] Carlos A Orozco MD [address] [facility] [address] [place], [phone] Unspecified dementia, unspecified severity, without behavioral disturbance, psychotic disturbance, mood disturbance, and anxiety (CMS/HCC V24, CMS/HCC V28); Essential (primary) hypertension; Atherosclerotic heart disease of [place] coronary artery without angina pectoris Social History [...] Essential (primary) hypertension Atherosclerotic heart disease of [place] coronary artery without angina pectoris BASIC METABOLIC PANEL Routine 05/11/2024 6:48 AM EDT Unspecified dementia, unspecified severity, without behavioral disturbance, psychotic disturbance, mood disturbance, and anxiety (CMS/HCC) Essential (primary) hypertension Atherosclerotic heart disease of [place] coronary artery without angina pectoris documented in this encounter Results * (ABNORMAL) Basic metabolic panel (05/11/2024 6:48 AM EDT) Sodium 141 133 - 145 mmol/L LAB CHEMISTRY METHOD 05/11/2024 1:07 PM [facility] Potassium 3.6 3.5 - 5.5 mmol/L LAB CHEMISTRY METHOD 05/11/2024 1:07 PM [facility] LAB [place] 105 96 - 110 mmol/L LAB CHEMISTRY METHOD 05/11/2024 1:07 PM [facility] CO2 27 21 - 32 mmol/L LAB CHEMISTRY METHOD 05/11/2024 1:07 PM [facility] Anion Gap 9 3 - 11 LAB CHEMISTRY METHOD 05/11/2024 1:07 PM [facility] Glucose 101(H) 70 - 100 mg/dL LAB CHEMISTRY METHOD 05/11/2024 1:07 PM [facility] BUN 17 5 - 25 mg/dL LAB CHEMISTRY METHOD 05/11/2024 1:07 PM [facility] Creatinine 0.64 0.50 - 1.10 mg/dL LAB CHEMISTRY METHOD 05/11/2024 1:07 PM [facility] LAB eGFR 91 >=60 mL/min/1. 73m2 LAB CHEMISTRY METHOD 05/11/2024 1:07 PM [facility] LAB Comment:Calculation based on the??Chronic Kidney Disease Epidemiology Collaboration (CKD-EPI) equation refit??without adjustment for race. BUN/Creatinine Ratio 26.6 LAB CHEMISTRY METHOD 05/11/2024 1:07 PM [facility] Calcium 10.1 8.5 - 10.5 mg/dL LAB CHEMISTRY METHOD 05/11/2024 1:07 PM EDT [facility] LAB Blood Venous blood specimen / Unknown Venipuncture / Unknown 05/11/2024 6:48 AM EDT 05/11/2024 12:10 PM EDT us Carlos A Orozco MD LAB BLOOD ORDERABLES Final Resul t [facility] LAB [address] [place] [address], [place] [phone] * (ABNORMAL) Complete blood count (05/11/2024 6:48 AM EDT) WBC 8.8 4.8 - 10.8 K/mcL LAB HEMETOLOGY METHOD 05/11/2024 12:44 PM EDT [facility] LAB RBC 4.90(H) 3.80 - 4.80 M/mcL LAB HEMETOLOGY METHOD 05/11/2024 12:44 PM EDT [facility] Hemoglobin 14.5 11.5 - 16.0 g/dL LAB HEMETOLOGY METHOD 05/11/2024 12:44 PM EDT [facility] Hematocrit 46.0 35.0 - 47.0 % LAB [facility]OLOGY [facility] MCV 94.7 79.0 - 98.0 FL LAB HEMETOLOGY METHOD 05/11/2024 12:44 PM EDT [facility] MCH 29.8 27.0 - 32.0 pcg LAB HEMETOLOGY METHOD 05/11/2024 12:44 PM [facility] LAB MCHC 31.5(L) 32.0 - 37.0 g/dL LAB HEMETOLOGY METHOD 05/11/2024 12:44 PM EDT [facility] RDW 13.6 11.0 - 15.0 % LAB HEMETOLOGY METHOD 05/11/2024 12:44 PM EDT [facility] Platelets 251 130 - 400 K/mcL LAB HEMETOLOGY METHOD 05/11/2024 12:44 PM EDT [facility] LAB MPV 11.1(H) 7.0 - 11.0 FL LAB HEMETOLOGY METHOD 05/11/2024 12:44 PM EDT [facility] NRBC 0.0 <1.0 % LAB HEMETOLOGY METHOD 05/11/2024 12:44 PM EDT [facility] LAB NRBC Absolute 0.00 <0.10 K/mcL LAB HEMETOLOGY METHOD 05/11/2024 12:44 PM EDT [facility] LAB Blood Venous blood specimen / Unknown Venipuncture / Unknown 05/11/2024 6:48 AM EDT 05/11/2024 12:10 PM EDT us Carlos A Orozco MD LAB BLOOD ORDERABLES Final Resul t [facility] [address] [place] [address], documented in this encounter Visit Diagnoses Diagnosis Unspecified dementia, unspecified severity, without behavioral disturbance, psychotic disturbance, mood disturbance, and anxiety (CMS/HCC V24, CMS/HCC V28) Essential (primary) hypertension Unspecified essential hypertension Atherosclerotic heart disease of [place] coronary artery without angina pectoris documented in this encounter Care Teams Retail Loan Officer Relationship Specialty Start Date End Date Hafsa Torre NP [address] [place] [phone] PCP - General 06/17/21 documented as of this encounter
--- OUTSIDE RECORDS SUMMARY | 2024-05-25 20:57 | XMS_ITS | Encounter Summary ---
Author Organization [facility] Address [address] [place] [address] Care Team Providers Care Proj Engineer Name Role Phone Hafsa Torre SITE LEAD Primary Care Provider +1- [phone] Encounter Details Date Type Department Care Team (Late st Contact Info) Description 05/03/2024 Lab Requisition [facility] - Main Lab [address] [facility] [place] [address] Carlos A Orozco MD 38 [facility] [address] [place], [phone] Unspecified dementia, unspecified severity, without behavioral disturbance, psychotic disturbance, mood disturbance, and anxiety (CMS/HCC V24, CMS/HCC V28); Essential (primary) hypertension; Atherosclerotic heart disease of [place] coronary artery without angina pectoris Social History [...] Essential (primary) hypertension Atherosclerotic heart disease of [place] coronary artery without angina pectoris BASIC METABOLIC PANEL Routine 05/04/2024 8:13 AM EDT Unspecified dementia, unspecified severity, without behavioral disturbance, psychotic disturbance, mood disturbance, and anxiety (CMS/HCC) Essential (primary) hypertension Atherosclerotic heart disease of [place] coronary artery without angina pectoris documented in this encounter Results * (ABNORMAL) Basic metabolic panel (05/04/2024 8:13 AM EDT) Sodium 141 133 - 145 mmol/L LAB CHEMISTRY METHOD 05/04/2024 1:09 PM [facility] LAB Potassium 3.7 3.5 - 5.5 mmol/L LAB CHEMISTRY METHOD 05/04/2024 1:09 PM [facility] LAB Chloride 106 96 - 110 mmol/L LAB CHEMISTRY METHOD 05/04/2024 1:09 PM [facility] LAB CO2 29 21 - 32 mmol/L LAB CHEMISTRY METHOD 05/04/2024 1:09 PM [facility] LAB Anion Gap 6 3 - 11 LAB CHEMISTRY METHOD 05/04/2024 1:09 PM [facility] LAB Glucose 111(H) 70 - 100 mg/dL LAB CHEMISTRY METHOD 05/04/2024 1:09 PM [facility] BUN 16 5 - 25 mg/dL LAB CHEMISTRY METHOD 05/04/2024 1:09 PM [facility] LAB Creatinine 0.74 0.50 - 1.10 mg/dL LAB CHEMISTRY METHOD 05/04/2024 1:09 PM [facility] LAB eGFR 83 >=60 mL/min/1. 73m2 LAB CHEMISTRY METHOD 05/04/2024 1:09 PM [facility] LAB Comment:Calculation based on the??Chronic Kidney Disease Epidemiology Collaboration (CKD-EPI) equation refit??without adjustment for race. BUN/Creatinine Ratio 21.6 LAB CHEMISTRY METHOD 05/04/2024 1:09 PM [facility] LAB Calcium 9.6 8.5 - 10.5 mg/dL LAB CHEMISTRY METHOD 05/04/2024 1:09 PM EDT [facility] LAB Blood Venous blood specimen / Unknown Venipuncture / Unknown 05/04/2024 8:13 AM EDT 05/04/2024 10:46 AM EDT us Carlos A Orozco MD LAB BLOOD ORDERABLES Final Resul t [facility] [address] [place] [address], * (ABNORMAL) Complete blood count (05/04/2024 8:13 AM EDT) WBC 6.6 4.8 - 10.8 K/mcL LAB HEMETOLOGY METHOD 05/04/2024 10:58 AM EDT [facility] LAB RBC 4.80 3.80 - 4.80 M/mcL LAB HEMETOLOGY [facility] Hemoglobin 14.2 11.5 - 16.0 g/dL LAB HEMETOLOGY METHOD 05/04/2024 10:58 AM [facility] LAB Hematocrit 45.1 35.0 - 47.0 % LAB HEMETOLOGY METHOD 05/04/2024 10:58 AM [facility] LAB MCV 94.7 79.0 - 98.0 FL LAB HEMETOLOGY METHOD 05/04/2024 10:58 AM EDT [facility] LAB MCH 29.8 27.0 - 32.0 pcg LAB HEMETOLOGY METHOD 05/04/2024 10:58 AM [facility] LAB MCHC 31.5(L) 32.0 - 37.0 g/dL LAB HEMETOLOGY METHOD 05/04/2024 10:58 AM [facility] LAB RDW 13.1 11.0 - 15.0 % LAB HEMETOLOGY METHOD 05/04/2024 10:58 AM EDT [facility] LAB Platelets 174 130 - 400 K/mcL LAB HEMETOLOGY METHOD 05/04/2024 10:58 AM EDT [facility] LAB MPV 11.5(H) 7.0 - 11.0 FL LAB HEMETOLOGY METHOD 05/04/2024 10:58 AM EDT [facility] LAB NRBC 0.0 <1.0 % LAB HEMETOLOG METHOD 05/04/2024 10:58 AM EDT [facility] LAB NRBC Absolute 0.00 <0.10 K/mcL LAB HEMETOLOGY METHOD 05/04/2024 10:58 AM EDT [facility] LAB Blood Venous blood specimen / Unknown Venipuncture / Unknown 05/04/2024 8:13 AM EDT 05/04/2024 10:46 AM EDT us Carlos A Orozco MD LAB BLOOD ORDERABLES Final Resul t [facility] [address] [place] [address], documented in this encounter Visit Diagnoses Diagnosis Unspecified dementia, unspecified severity, without behavioral disturbance, psychotic disturbance, mood disturbance, and anxiety (CMS/HCC V24, CMS/HCC V28) Essential (primary) hypertension Unspecified essential hypertension Atherosclerotic heart disease of [place] coronary artery without angina pectoris documented in this encounter Care Teams Proj Engineer Relationship Specialty Start Date End Date Hafsa Torre NP [address] [address] PCP - General 06/17/21 documented as of this encounter
--- OUTSIDE RECORDS SUMMARY | 2024-05-25 20:57 | XMS_ITS | Encounter Summary ---
Author Organization [facility] [address] Address [address] [place] [phone] Care Team Providers Care Patient Financial Advocate Name Role Phone Hafsa Torre NP Primary Care Provider +1- [phone] Encounter Details Date Type Department Care Team (Late st Contact Info) Description 05/17/2024 Lab Requisition [facility] - Main Lab [address] [facility] [place] [address] Carlos A Orozco MD 38 [facility] [address] [place], [phone] Unspecified dementia, unspecified severity, without behavioral disturbance, psychotic disturbance, mood disturbance, and anxiety (CMS/HCC V24, CMS/HCC V28); Essential (primary) hypertension; Atherosclerotic heart disease of [place] coronary artery without angina pectoris Social History [...] on file documented as of this encounter Visit Diagnoses Diagnosis Unspecified dementia, unspecified severity, without behavioral disturbance, psychotic disturbance, mood disturbance, and anxiety (CMS/HCC V24, CMS/HCC V28) Essential (primary) hypertension Unspecified essential hypertension Atherosclerotic heart disease of [place] coronary artery without angina pectoris documented in this encounter Care Teams Patient Financial Advocate Relationship Specialty Start Date End Date Hafsa Torre NP [address] [place] [address] PCP - General 06/17/21 documented as of this encounter
[2024-05-25 21:22] VITALS: BP 127/58; PULSE 72; RESP 16; TEMP 36.2; O2SAT 98
[2024-05-25] MEDS: Lactated Ringers 1,000 ML 150 ML IVCONT (21:38)
[2024-05-25] MEDS: Enoxaparin Sodium 40 MG/0.4 ML SYRINGE SUBCUT (21:38)
[2024-05-25 21:44] VITALS: BMI 21.1
[2024-05-26 04:00] VITALS: BP 127/60; PULSE 66; RESP 20; TEMP 37.1; O2SAT 94
[2024-05-26 06:09] LABS: MANUAL DIFF FLAG NO
[2024-05-26 06:15] LABS: Basophils Percent Auto 0.7 % (0-2); Eosinophils Absolute Auto 0.6 X10*3/uL (0.0-0.4); Eosinophils Percent Auto 10.3 % (0-4); Hematocrit 36.4 % (37.0-47.0); Imm Gran Abs Auto 0.04 X10*3/uL (0.00-0.03); Imm Gran Pct Auto 0.7 % (0.0-0.4); Lymphocytes Absolute Auto 1.4 X10*3/uL (1.2-4.9); Lymphocytes Percent Auto 24.6 % (20-40); Mean Corpuscular Hemoglobin 29.7 pg (27.0-33.0); Mean Corpuscular Volume 90.1 fL (80.0-98.0); Mean Platelet Volume 11.4 fL (9.4-12.3); Monocytes Absolute Auto 0.6 X10*3/uL (0.1-1.2); Neutrophils Absolute Auto 3.1 x10*3/uL (2.0-8.3); Neutrophils Percent Auto 52.7 % (45-73); Platelet Count 167 X10*3/uL (160-400); Red Blood Count 4.04 X10*6/uL (4.20-5.50); Red Cell Distribution Width 13.1 % (11.0-16.0); White Blood Count 5.8 X10*3/uL (4.8-10.8)
[2024-05-26 06:20] LABS: Prothrombin Time 11.7 SEC (10.9-12.4)
[2024-05-26 06:44] LABS: Alanine Aminotransferase 526 U/L (0-31); Albumin Level 2.7 g/dL (3.5-5.0); Anion Gap 11 (12-20); Aspartate Amino Transferase 309 U/L (5-31); Bilirubin Total 1.1 mg/dL (0.0-1.0); Blood Urea Nitrogen 26 mg/dL (9-16); Calcium 9.3 mg/dL (8.4-10.2); Carbon Dioxide 28 mmol/L (22-29); Chloride 105 mmol/L (96-108); Creatinine Clr Calc Pharmacy 68.4; Estimated Glomerular Filt Rate > 60; Glucose Random 114 mg/dL (60-115); Sodium 141 mmol/L (135-145); Total Protein 4.8 g/dL (6.5-8.0)
--- NOTE | 2024-05-26 07:20 | PHA.MEDREC ---
Addendum entered by Gogo Carbajal RPh 05/26/24 07:21: left atorvastatin unconfirmed as there is a hold on it currently Original Note: Pharmacy Consult ? Medication Reconciliation Pharmacy has completed the medication reconciliation. Patient was discharged from [facility]3 and transferred to floor. Utilized patients discharge packet from 05/25/24
[2024-05-26 07:38] VITALS: BP 133/57; PULSE 57; RESP 18; TEMP 36.7; O2SAT 96
[2024-05-26 08:27] LABS: Alkaline Phosphatase 202 U/L (39-117)
[2024-05-26] MEDS: Aspirin Enteric Coated 81 MG TABLET.DR PO (08:39)
[2024-05-26] MEDS: Cyanocobalamin (Vitamin B-12) 1,000 MCG TABLET 1000 MCG PO (08:39)
[2024-05-26] MEDS: Potassium Chloride Packet 20 MEQ PACKET 40 MEQ PO (08:39)
[2024-05-26] MEDS: Multivitamin TABLET 1 TAB PO (08:40)
[2024-05-26] MEDS: 0.9 % Sodium Chloride Flush 3 ML SYRINGE IVFLUSH ×3 (08:42→20:44)
[2024-05-26 09:54] LABS: Valproate < 12.5 mcg/mL (50.0-100.0)
[2024-05-26 10:15] LABS: HBc Num1 0.25 S/CO (0.00-0.79); HBsAGNum1 0.32 S/CO (0.00-0.99); Hepatitis B Core Antibody Nonreactive (Nonreactive); Hepatitis B Surface Antigen Negative (Negative); ~Hepatitis B Surface Antibody NONREACTIVE (Nonreactive)
--- NOTE | 2024-05-26 10:52 | MHC.CM.PN ---
Addendum entered by Luh Harris 05/26/24 14:58: HCP is not on file. The Patients dtr will bring the HCP in today. CM will scan it into the patients EMR, once received. Addendum entered by Luh Harris 05/26/24 11:46: Patients dtr reports that pts bottom dentures are missing. Patient was wearing them on Thursday. The dtr noticed that they were missing on Thursday. She stated that she reported the missing dentures to fruit harvest worker Maisha on [facility] unit. This teletypewriter operator called [facility]. The unit tender, Frida stated that they have not located the dentures. She said We have looked everywhere. She was instructed that an incident report should be filed. The call was transferred to Maisha Deluna. A detailed VM was left re bottom dentures. Instructed Maisha to file an incident report for replacement/reimbursement of the lost dentures. Charge nurse med surg has been notified of this issue. Original Note: IMM 05/26/24 BIBA to ER from [facility]. She was admitted to Psych DX UTI+. She has been transferred to Med surg for elevated LFTs. A GI consult has been ordered. Patient with dementia has difficulty speaking. She requires assist and supervision with functional mobility. A HCP is on file. DP return to psych pending medical clearance and Psych eval. vs return to [facility] via BLS. A return referral has been sent to the SNF.
--- NOTE | 2024-05-26 11:09 | HO.PM.IMPN ---
Subjective Subjective Date of Service: 05/26/24 Interval History: some RUQ pain but not a consistent historian Review of Systems Review of Systems: Yes all other systems are reviewed and are negative Physical Exam Vital Signs: Vital Signs: Last Vital Signs Temp 98.0 F 05/26/24 07:38 Pulse 57 05/26/24 07:38 Resp 18 05/26/24 07:38 BP 133/57 L 05/26/24 07:38 Pulse Ox 96 05/26/24 07:38 O2 Del Method Room Air 05/26/24 07:38 BMI result Body Mass Index 21.1 Gen: in no acute distress HEENT: sclera anicteric, moist mucus membranes Neck: supple Lungs: clear to auscultation bilaterally Heart: regular rate and rhythm, no murmurs Abd: soft, mild RUQ tenderness, non-distended Ext: no edema Skin: warm/well-perfused Neuro: alert and oriented to self only, moves all extremities Psych: appropriate affect Objective Data Active Medications Al Hydroxide/Mg Hydroxide (Magnesium Hydrox/Alum Hydrox 30 Ml Oral.Susp) 30 ml PO Q6H PRN PRN Reason: Heartburn/Nausea Aspirin (Aspirin Enteric Coated 81 Mg Tablet.Dr) 81 mg PO DAILY [facility] Last Admin: 05/26/24 08:39 Dose: 81 mg Documented By: WILNER Bisacodyl (Bisacodyl 10 Mg Supp.Rect) 10 mg [place] DAILY PRN PRN Reason: Constipation Cyanocobalamin (Cyanocobalamin (Vitamin B-12) 1,000 Mcg Tablet) 1,000 mcg PO DAILY [facility] Last Admin: 05/26/24 08:39 Dose: 1,000 mcg Documented By: WILNER Enoxaparin Sodium (Enoxaparin Sodium 40 Mg/0.4 Ml Syringe) 40 mg SUBCUT Q24H [facility] Last Admin: 05/25/24 21:38 Dose: 40 mg Documented By: NADEEMRISSadie Magnesium Hydroxide (Milk Of Magnesia 30 Ml Oral.Susp) 30 ml PO DAILY PRN PRN Reason: Constipation Melatonin (Melatonin 3 Mg Tablet) 9 mg PO BEDTIME PRN PRN Reason: Insomnia Multivitamins/Vitamin C (Multivitamin Tablet) 1 tab PO DAILY [facility] Last Admin: 05/26/24 08:40 Dose: 1 tab Documented By: WILNER Sodium Biphosphate/Sodium Phosphate (Sodium Phosphate,[place]-Dibasic 133 Ml Enema) 133 ml [place] DAILY PRN PRN Reason: CONSTIPATION Sodium Chloride (0.9 % Sodium Chloride Flush 3 Ml Syringe) 3 ml IVFLUSH QSHIFT FAVIOLA Last Admin: 05/26/24 08:42 Dose: 3 ml Documented By: WILNER Labs 05/26/24 05:23 05/26/24 05:23 Labs: Laboratory Results - last 24 hr 05/26/24 05/26/24 05:23 08:23 MCV 90.1 MCH 29.7 MCHC 33.0 RDW 13.1 Plt Count 167 MPV 11.4 Immature Gran % (Auto) 0.7 H Neut % (Auto) 52.7 Lymph % (Auto) 24.6 [place] % (Auto) 11.0 Eos % (Auto) 10.3 H Baso % (Auto) 0.7 Lymph # (Auto) 1.4 [place] # (Auto) 0.6 Eos # (Auto) 0.6 H Baso # (Auto) 0.0 Abs Immat Gran (auto) 0.04 H Absolute Neuts (auto) 3.1 Absolute Nucleated RBC 0.000 Nucleated RBC % (auto) 0.0 PT 11.7 INR 1.0 Anion Gap 11 L Estim Creat Clear Calc 68.4 Estimated GFR > 60 Random Glucose 114 Calcium 9.3 D Magnesium 2.0 Total Bilirubin 1.1 H AST 309 H ALT 526 H Alkaline Phosphatase 202 H Total Creatine Kinase 18 L Total Protein 4.8 L Albumin 2.7 L Valproic Acid < 12.5 L Hep Bs Antigen Negative Hep Bs Antibody NONREACTIVE Hep B Core Total Ab Nonreactive CT A/P 05/25/24 No acute findings. Nonemergent/incidental findings above. 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 Quality Stroke Does the patient have a stroke diagnosis?: No VTE Prior VTE?: No VTE Risk Level:: Medical - moderate - high VTE Device Contraindication: Treatment Not Indicated VTE Drug Contraindication: N/A - Med Ordered
--- NOTE | 2024-05-26 15:36 | CONS_ITS ---
DATE OF SERVICE: 05/26/2024 REFERRING PHYSICIAN: VIDAL Wheeler REASON FOR CONSULTATION: Elevated liver function tests. HISTORY OF PRESENT ILLNESS: The patient is a 78-year-old woman, who was admitted to the medical unit from the inpatient psychiatric unit because of elevated LFTs. She was initially admitted to the geriatric psychiatric unit for agitation and very aggressive behavior from the nursing facility where she was staying. She also has a history of dementia and is not able to provide history. She was treated with Macrobid for UTI and also given risperidone since her admission. Laboratory studies are reviewed including a liver function tests showing a slightly elevated AST and ALT on admission with normal alkaline phosphatase and total bilirubin. Since admission, laboratory studies have shown an increase in her liver function tests with transaminases reaching the 5-700 range, bilirubin elevated at 1.3, and elevations of her alkaline phosphatase. These actually improved today with decreases in her transaminases, imaging studies that have been obtained include an abdomen and pelvis CT scan, which was reviewed. The liver is described as normal. She is status post cholecystectomy and biliary dilation is not seen. The patient has absolutely no complaints of right upper quadrant pain. PAST MEDICAL HISTORY: 1. Dementia. 2. Hyperlipidemia. 3. Peripheral vascular disease. 4. Diabetes. 5. Diverticulosis. 6. Hypertension. 7. History of urinary tract infections. CURRENT MEDICATIONS: Current medication list is reviewed in the chart. ALLERGIES: MULTIPLE MEDICATION ALLERGIES ARE REVIEWED. FAMILY HISTORY: This is reviewed in the electronic medical record. SOCIAL HISTORY: There is no reported tobacco, alcohol, or substance abuse. REVIEW OF SYSTEMS: This is not obtainable. PHYSICAL EXAMINATION: GENERAL: Shows a pleasant female, who was elderly, lying in bed. She is not combative and has difficulty not remembering any medical history. SKIN: Anicteric. HEENT: Shows no scleral icterus. NECK: Without lymphadenopathy or thyromegaly. LUNGS: Clear. HEART: Shows regular rate and rhythm. S1, S2. No murmur. ABDOMEN: Soft. There is a well-healed right upper quadrant cholecystectomy scar from her previous surgery. Bowel sounds are present. No organomegaly is noted. There is no tenderness. EXTREMITIES: Without edema. LABORATORY DATA AND IMAGING STUDIES: Reviewed. IMPRESSION: Elevated liver function tests. Currently, she is asymptomatic and appears to have no evidence of biliary obstruction based on her CT imaging with normal biliary tree and normal liver. Possible causes for her elevated liver function tests include underlying fatty liver, although her CT scan does not show this drug causes are possible given her recent medication changes and her atorvastatin has been held, although this seems less likely to be causing a problem. An atypical viral hepatitis could be causing her symptoms as well. At this time, there is no evidence of any acute liver failure or viral hepatitis. I would recommend monitoring her liver function tests, which appeared to be peaked and avoiding hepatotoxic drugs. Thanks for asking me to see her. I will follow her in the hospital with you. MD MARIAN Valdivia/HUMBERTO / [phone]
[2024-05-26 16:00] VITALS: BP 125/58; PULSE 63; RESP 17; TEMP 36.8; O2SAT 94
[2024-05-26 20:00] VITALS: BP 130/62; PULSE 79; RESP 16; TEMP 36; O2SAT 98
[2024-05-26] MEDS: Enoxaparin Sodium 40 MG/0.4 ML SYRINGE SUBCUT (20:43)
[2024-05-26] MEDS: Melatonin 3 MG TABLET 9 MG PO (22:27)
[2024-05-27 03:48] VITALS: BP 125/60; PULSE 68; RESP 17; TEMP 36.7; O2SAT 96
[2024-05-27 06:21] LABS: Alanine Aminotransferase 447 U/L (0-31); Albumin Level 2.7 g/dL (3.5-5.0); Anion Gap 9 (12-20); Aspartate Amino Transferase 199 U/L (5-31); Bilirubin Total 0.7 mg/dL (0.0-1.0); Blood Urea Nitrogen 15 mg/dL (9-16); Calcium 9.1 mg/dL (8.4-10.2); Carbon Dioxide 29 mmol/L (22-29); Chloride 106 mmol/L (96-108); Creatinine Clr Calc Pharmacy 69.7; Estimated Glomerular Filt Rate > 60; Glucose Random 128 mg/dL (60-115); Potassium 3.3 mmol/L (3.3-5.1); Sodium 141 mmol/L (135-145); Total Protein 4.9 g/dL (6.5-8.0)
[2024-05-27 06:38] LABS: Alkaline Phosphatase 200 U/L (39-117)
[2024-05-27] MEDS: Cyanocobalamin (Vitamin B-12) 1,000 MCG TABLET 1000 MCG PO (07:44)
[2024-05-27] MEDS: Multivitamin TABLET 1 TAB PO (07:44)
[2024-05-27] MEDS: Aspirin Enteric Coated 81 MG TABLET.DR PO (07:44)
[2024-05-27] MEDS: 0.9 % Sodium Chloride Flush 3 ML SYRINGE IVFLUSH (07:44)
[2024-05-27 08:06] LABS: ~HepC Num1 0.52 S/CO (0.00-0.79); ~Hepatitis C Antibody Nonreactive (Nonreactive)
[2024-05-27 10:01] VITALS: BMI 21.1
--- NOTE | 2024-05-27 10:26 | PM.DS ---
DS: Providers Provider Date of Service: 05/27/24 Date of admission: 05/25/24 20:54 Date of discharge: 05/27/24 Primary care physician: Carlos A Orozco MD Consults: 05/25/24 19:38 Consult to Gastroenterology Routine Consulting Provider: Alejandro Chase Reason for consultation: Transaminitis, pt transferred from [facility] 05/27/24 07:30 In CARE Team Crisis Consult Routine Comment: Reason for consultation: Medically cleared for return to [facility] DS: Diagnosis Discharge Diagnosis (1) Transaminitis: Status: Acute (2) Major neurocognitive disorder: Status: Acute DS: Summary Hospital Course Hospital Course: From the history and physical by the admitting hospitalist, VIDAL Wheeler, 05/25/24: Pt is a [id number]-female with a PMH significant for Alzheimer's dementia, HLD, and PVD who was admitted to [facility] unit for increased agitation and aggressive behavior. Has apparently been combative towards both staff and residents at [facility]. While on the unit pt's LTFs have been noted to have been consistently increasing, from WNL on 05/18 to AST 82 and ALT 46 on 05/19 to T bili 1.3, AST 550, ALT 706, and alk phos 278 earlier today. Pt herself has severe dementia and is unable to provide meaningful HPI or ROS, though does not appear to have any acute complaints. According to nursing pt has had reduced po intake the past two days, but no N/V/D nor any significant deviation from baseline. Has not appeared acutely ill or with GI/abd complaints. Pt was treated with Macrobid for UTI starting 05/18. On 05/21 pt was started on low-dose risperadone. 78yo F LTC resident of [facility] with Alzheimer dementia, HLD, and PVD admitted to geriatric psychiatry for increased agitation + aggressive behavior, transferred to hospitalist service for transaminasemia probably ultimately due to drug-induced liver injury. Recently started medications [nitrofurantoin and risperidone] stopped; also held other possible culprits of quetiapine, divaloprex, donpezil, mirtapazine, and atorvastatin. CT of the abdomen and pelvis without obvious abnormalities. Gatsroenterology consulted and concurred with likely drug-induced liver injury or atypical viral hepatitis. LFTs improved and should be repeated in 1 week. Consideration may be given to stepwise addition of the held medications as needed with periodic LFT monitoring. She was transferred back to Geriatric Psychiatry for ongoing care. Time Attestation Discharge Coordination Time (in mins): 45 Quality: Safe Use of Opioids Does Pt have an Active Cancer Diagnosis on the Problem List?: No Quality: Stroke Does the patient have a stroke diagnosis?: No Physical Exam Vital Signs: Vital Signs: Last Vital Signs Temp 98.1 F 05/27/24 03:48 Pulse 68 05/27/24 03:48 Resp 17 05/27/24 03:48 BP 125/60 05/27/24 03:48 Pulse Ox 96 05/27/24 03:48 O2 Del Method Room Air 05/27/24 03:48 BMI result Body Mass Index 21.1 Gen: in no acute distress HEENT: sclera anicteric, moist mucus membranes Neck: supple Lungs: clear to auscultation bilaterally Heart: regular rate and rhythm, no murmurs Abd: soft, mild RUQ tenderness, non-distended Ext: no edema Skin: warm/well-perfused Neuro: alert and oriented to self only, moves all extremities Psych: appropriate affect DS: Data Data Completed and Pending Completed studies during hospitalization [Text1]: Laboratory Tests 05/26/24 05/26/24 05/27/24 05:23 08:23 05:34 WBC 5.8 RBC 4.04 L Hgb 12.0 Hct 36.4 L MCV 90.1 MCH 29.7 MCHC 33.0 RDW 13.1 Plt Count 167 MPV 11.4 Immature Gran % (Auto) 0.7 H Neut % (Auto) 52.7 Lymph % (Auto) 24.6 [place] % (Auto) 11.0 Eos % (Auto) 10.3 H Baso % (Auto) 0.7 Lymph # (Auto) 1.4 [place] # (Auto) 0.6 Eos # (Auto) 0.6 H Baso # (Auto) 0.0 Abs Immat Gran (auto) 0.04 H Absolute Neuts (auto) 3.1 Absolute Nucleated RBC 0.000 Nucleated RBC % (auto) 0.0 PT 11.7 INR 1.0 Sodium 141 141 Potassium 3.0 L 3.3 Chloride 105 106 Carbon Dioxide 28 29 Anion Gap 11 L 9 L BUN 26 H 15 Creatinine 0.56 0.55 Estim Creat Clear Calc 68.4 69.7 Estimated GFR > 60 > 60 Random Glucose 114 128 H Calcium 9.3 D 9.1 Magnesium 2.0 Total Bilirubin 1.1 H 0.7 AST 309 H 199 H ALT 526 H 447 H Alkaline Phosphatase 202 H 200 H Total Creatine Kinase 18 L Total Protein 4.8 L 4.9 L Albumin 2.7 L 2.7 L Valproic Acid < 12.5 L Hep Bs Antigen Negative Hep Bs Antibody NONREACTIVE Hep B Core Total Ab Nonreactive Hepatitis C Ab (EIA) Nonreactive Discharge Plan Discharge Patient Disposition: Xfer Psychiatric Hosp Discharge Diagnosis: transaminasemia Referrals: Carlos A Orozco MD [Primary Care Provider] - 1 Week Discharge Medications: Continued cyanocobalamin (vitamin B-12) 1,000 mcg Tablet 1,000 mcg PO DAILY bisacodyl 10 mg Suppository 10 mg [place] DAILY PRN (Reason: Constipation) Rx Instructions: For no BM if M.O.M ineffective. aspirin 81 mg Capsule 81 mg PO DAILY magnesium hydroxide [Milk of Magnesia] 400 mg/5 mL Suspension 30 ml PO DAILY PRN (Reason: Constipation) multivitamin with minerals Capsule 1 cap PO DAILY naloxone [Narcan] 4 mg/actuation [place],Non-Aerosol 4 mg INTRANASAL Q3M PRN (Reason: Opiate Reversal) Rx Instructions: spray 1 dose into ONE nostril; alternate nostrils w each dose until help arrives melatonin 3 mg Tablet 9 mg PO BEDTIME PRN (Reason: Insomnia) Qty: 0 0RF Fleet Enema 19-7 gram/118 mL Enema 133 ml [place] DAILY PRN (Reason: CONSTIPATION) Qty: 0 0RF MAG-AL 200-200 mg/5 mL Suspension 30 ml PO Q6H PRN (Reason: Heartburn/Nausea) Qty: 0 0RF Discontinued quetiapine 25 mg Tablet 25 mg PO BEDTIME atorvastatin 20 mg tablet 20 mg PO DAILY donepezil 5 mg tablet 5 mg PO DAILY divalproex [Depakote] 250 mg Tablet,Delayed Release (Dr/Ec) 250 mg PO BID mirtazapine 7.5 mg Tablet 7.5 mg PO BEDTIME risperidone [Risperdal] 1 mg/mL Solution 0.5 mg PO BID Qty: 0 0RF Discharge Orders: Discharge Order (Routine); Ordered 04/18/25 Ordered By: Loli Jones Diet: Ensure 1 can tid Activity on Discharge: No Restrictions Stand Alone Forms: Patient Portal Discharge page Print Language: Urdu Other Ambulatory Orders: Liver Panel (Routine) Timeframe: 1 Week Facility: [facility] - Location: Laboratory Ordered By: Loli Jones Care Plan Goals: liver health Health Concerns: transaminasemia Plan of Treatment: return to geriatric psychiatry for ongoing care medications held: divalproex, donepezil, quetiapine, risperidone, nitrofurantoin, atorvastatin, mirtazapine repeat LFTs in 1 week Assessment: See Discharge Summary.
--- NOTE | 2024-05-27 10:41 | MHC.CM.PN ---
DP: PT WILL RETURN TO [facility]
[2024-05-27 15:47] VITALS: BP 135/64; PULSE 61; RESP 14; TEMP 36.4; O2SAT 96
--- NOTE | 2024-05-28 12:21 | P.CDIM_ITS ---
PROVIDER RESPONSE TEXT: To clarify, the appropriate diagnosis supported by the clinical indicators: Hypokalemia: resolved QUERY TEXT: PHYSICIAN'S DOCUMENTATION REQUEST Date of Query: 05/27/2024 07:54 AM EDT Patient Name: Brianna Dennison Admit Date: 05/26/2024 Dear Loli Jones MD, A review of the medical record indicates additional documentation may be needed. Please review below and update the documentation accordingly. Clinical Indicators: LABS: potassium 3.0 L 3.3 Klor-con Based on the above, is there a diagnosis that correlates with these findings above? Hypokalemia resolved, possible, probable, cannot rule out Labs indicate a diagnosis of (please specify) Other (explain) Clinically unable to determine (explain) Thank you, Lin Acevedo, CCS, CDIS Use of terms such as suspected, likely, concern for, or probable (associated with a specific diagnosi s that is being evaluated, monitored, or treated as if it exists) are acceptable and can be coded in the inpatient se tting, when documented at the time of discharge. Please use your independent medical judgment in providing your response. THIS QUERY IS PART OF THE PERMANENT MEDICAL RECORD
== END 2024-05-27 17:11 | DRG 442 ==
PROVIDERS: Admitting Provider Student in an Organized Health Care Education/Training Program; PCP Family Medicine; Visit Provider Family Medicine
DX: K71.9 Toxic liver disease, unspecified (principal); F02.818 Dementia in other diseases classified elsewhere, unspecified severity, with other behavioral disturbance; T37.8X5A Adverse effect of other specified systemic anti-infectives and antiparasitics, initial encounter; T43.595A Adverse effect of other antipsychotics and neuroleptics, initial encounter; E78.5 Hyperlipidemia, unspecified; G30.9 Alzheimer's disease, unspecified; Z66 Do not resuscitate; E87.6 Hypokalemia; Z87.891 Personal history of nicotine dependence; Z79.82 Long term (current) use of aspirin; Z79.899 Other long term (current) drug therapy
CPT/HCPCS: 36415; 74176; 80053; 80164; 82550; 83735; 85025; 85610; 86704; 86706; 86803; 87340; J1650; J7120; S9485

== ENCOUNTER → 2024-05-25 20:54 | Outpatient (BNV) | payer MEDICARE, SELFPAY | PROVIDERS: Admitting Provider Student in an Organized Health Care Education/Training Program; Visit Provider Student in an Organized Health Care Education/Training Program | DX: R74.01 Elevation of levels of liver transaminase levels (principal); F03.90 Unspecified dementia, unspecified severity, without behavioral disturbance, psychotic disturbance, mood disturbance, and anxiety | CPT/HCPCS: 99223; 99232; 99239 ==

== ENCOUNTER 2024-05-27 17:15 | Outpatient (BNV) | payer MEDICARE, SELFPAY | END 2024-06-14 19:20 | PROVIDERS: Admitting Provider Psychiatry & Neurology Psychiatry; Visit Provider Nuclear Medicine | DX: I67.82 Cerebral ischemia (principal); H31.119 Age-related choroidal atrophy, unspecified eye | CPT/HCPCS: 70450 ==

== ENCOUNTER 2024-05-27 17:15 | Inpatient (IN) | payer MEDICARE, SELFPAY ==
--- NOTE | ~2024-05-27 | XR_ITS ---
EXAMINATION: XR RIBS, RIGHT CLINICAL INFORMATION: Unwitnessed fall, right rib pain. COMPARISON: None available. TECHNIQUE: 3 views of the right ribs were obtained. FINDINGS: Lungs are clear. No consolidation, pneumothorax, or pleural effusion. The cardiomediastinal silhouette and pulmonary vasculature are normal. Rib views demonstrate suspected minimally displaced acute fractures of right ribs 5 and 6 anterolaterally. No additional rib fractures or focal rib abnormalities detected. XR/XR ribs RT min 3V w CXR1V IMPRESSION: Findings suggesting acute fractures of the anterior lateral right fifth and sixth ribs. Clear lungs with no pneumothorax or effusion. Electronically signed by: Marcelino Feliz MD 06/15/2024 03:47 PM EDT
--- NOTE | ~2024-05-27 | CT_ITS ---
CLINICAL HISTORY: unwitnessed fall CT Brain without contrast Comparison: CT/OK/SR - CT HEAD/BRAIN WO IV CON - 05/01/24 16:55 EDT FINDINGS: Cortical sulci: There is diffuse prominence of the cortical sulci compatible with age-related atrophy. Ventricles: Normal for age Brain parenchyma: There is patchy lucency throughout the deep white matter indicating chronic microvascular leukomalacia. Extra axial spaces: Normal Posterior Fossa: Normal Extracranial soft tissues: Normal Additional abnormality: None IMPRESSION: Age-related atrophy with chronic microvascular leukomalacia. No hemorrhage, mass effect, or acute findings identified. This document has been electronically signed by: Karson Cantrell MD on 06/14/2024 20:56:11
--- NOTE | ~2024-05-27 | CT_ITS ---
EXAMINATION: CT ABDOMEN PELVIS WITHOUT IV CONTRAST HISTORY: abd pain COMPARISON: Comparison is made with the prior examination dated 05/25/2024. TECHNIQUE: CT scan of the abdomen and pelvis was performed without contrast using standard departmental protocol. Coronal and sagittal reformatted images were generated and reviewed. Oral contrast material was not administered at the request of the referring physician. This CT exam was performed with one or more of the following dose reduction techniques: automated exposure control, adjustment of the mA and/or kV according to patient size, use of iterative reconstruction technique. DLP: 519 mGy-cm FINDINGS: LOWER CHEST: The visualized lung bases are clear. There is no pleural effusion. CARDIOVASCULATURE: The heart is normal in size. There is no pericardial effusion. LIVER: The liver is normal in size and contour. The liver has an unremarkable unenhanced appearance. GALLBLADDER / BILE DUCTS: The gallbladder is surgically absent. There is no intra or extrahepatic biliary ductal dilatation. SPLEEN: The spleen is normal in size and has an unremarkable unenhanced appearance. PANCREAS: The pancreas has an unremarkable unenhanced appearance. ADRENAL GLANDS: Unremarkable. KIDNEYS/RETROPERITONEUM: No renal calculi are identified. There is no hydronephrosis. Again seen is a 6.2 cm cyst at the upper pole of the left kidney. LYMPH NODES: No retroperitoneal lymphadenopathy is identified in the abdomen or pelvis. VASCULATURE: The abdominal aorta demonstrates atherosclerotic calcification, but is normal in caliber. MESENTERY/PERITONEUM: No free fluid. No masses. There is no free intraperitoneal gas. STOMACH: The stomach is collapsed, limiting evaluation. SMALL BOWEL: The small bowel is normal in caliber. COLON: The ascending and transverse colon are completely collapsed. There is a moderate to large amount of stool in the descending and sigmoid colon. APPENDIX: The appendix is not seen, however no inflammatory changes are seen adjacent to the cecum. URINARY BLADDER/PELVIC ORGANS: The urinary bladder is unremarkable. The patient is status post hysterectomy. BONES / SOFT TISSUES: There is degenerative disc disease of the spine. CT/CT abdomen pelvis wo IV con IMPRESSION: Moderate to large amount of stool in the descending and sigmoid colon. Electronically signed by: Juan Vasques MD 06/15/2024 12:36 PM EDT
--- OUTSIDE RECORDS SUMMARY | 2024-05-27 17:19 | XMS_ITS | Encounter Summary ---
Author Organization [facility] Address [id number] [place] [id number] Care Team Providers Care Family Resource Specialist Name Role Phone Hafsa Torre DELPHI PROGRAMMER Primary Care Provider [phone]- [phone] Encounter Details Date Type Department Care Team (Late st Contact Info) Description 05/10/2024 Lab Requisition [facility] - Main Lab [address] [facility] [place] [address] Carlos A Orozco MD [address] [facility] [address] [place], [address] Unspecified dementia, unspecified severity, without behavioral disturbance, psychotic disturbance, mood disturbance, and anxiety (CMS/HCC V24, CMS/HCC V28); Essential (primary) hypertension; Atherosclerotic heart disease of [place] coronary artery without angina pectoris Social History [...] Essential (primary) hypertension Atherosclerotic heart disease of [place] coronary artery without angina pectoris BASIC METABOLIC PANEL Routine 05/11/2024 6:48 AM EDT Unspecified dementia, unspecified severity, without behavioral disturbance, psychotic disturbance, mood disturbance, and anxiety (CMS/HCC) Essential (primary) hypertension Atherosclerotic heart disease of [place] coronary artery without angina pectoris documented in [...] LAB CHEMISTRY METHOD 05/11/2024 1:07 PM EDT [facility] Blood Venous blood specimen / Unknown Venipuncture / Unknown 05/11/2024 6:48 AM EDT 05/11/2024 12:10 PM EDT us Carlos A Orozco MD LAB BLOOD ORDERABLES Final Resul t [facility] [address] [place] [address], [place] [phone] * (ABNORMAL) Complete blood count (05/11/2024 6:48 AM EDT) WBC 8.8 4.8 - 10.8 K/mcL LAB HEMETOLOGY METHOD 05/11/2024 12:44 PM EDT [facility] RBC 4.90(H) 3.80 - 4.80 M/mcL LAB HEMETOLOGY METHOD 05/11/2024 12:44 PM EDT [facility] Hemoglobin 14.5 11.5 - 16.0 g/dL LAB HEMETOLOGY METHOD 05/11/2024 12:44 PM EDT [facility] Hematocrit 46.0 35.0 - 47.0 % LAB [facility]EMETOLOGY [facility] MCV 94.7 79.0 - 98.0 FL LAB HEMETOLOGY METHOD 05/11/2024 12:44 PM EDT [facility] MCH 29.8 27.0 - 32.0 pcg LAB HEMETOLOGY METHOD 05/11/2024 12:44 PM [facility] LAB MCHC 31.5(L) 32.0 - 37.0 g/dL LAB HEMETOLOGY METHOD 05/11/2024 12:44 PM EDT [facility] RDW 13.6 11.0 - 15.0 % LAB HEMETOLOGY METHOD 05/11/2024 12:44 PM EDT [facility] Platelets 251 130 - 400 K/mcL LAB HEMETOLOGY METHOD 05/11/2024 12:44 PM EDT [facility] MPV 11.1(H) 7.0 - 11.0 FL LAB HEMETOLOGY METHOD 05/11/2024 12:44 PM EDT [facility] NRBC 0.0 <1.0 % LAB HEMETOLOGY METHOD 05/11/2024 12:44 PM EDT [facility] NRBC Absolute 0.00 <0.10 K/mcL LAB HEMETOLOGY METHOD 05/11/2024 12:44 PM EDT [facility] Blood Venous blood specimen / Unknown Venipuncture / Unknown 05/11/2024 6:48 AM EDT 05/11/2024 12:10 PM EDT us Carlos A Orozco MD LAB BLOOD ORDERABLES Final Resul t [facility] [address] [place] [address], documented in this encounter Visit Diagnoses Diagnosis Unspecified dementia, unspecified severity, without behavioral disturbance, psychotic disturbance, mood disturbance, and anxiety (CMS/HCC V24, CMS/HCC V28) Essential (primary) hypertension Unspecified essential hypertension Atherosclerotic heart disease of [place] coronary artery without angina pectoris documented in this encounter Care Teams Family Resource Specialist Relationship Specialty Start Date End Date Hafsa Torre NP [address] [place] [id number] PCP - General 06/17/21 documented as of this encounter
--- OUTSIDE RECORDS SUMMARY | 2024-05-27 17:19 | XMS_ITS | Encounter Summary ---
Author Organization [facility] Address [address] [place] [id number] Care Team Providers Care Manager Utilization Review Name Role Phone Hafsa Torre NP Primary Care Provider +1- [phone] Encounter Details Date Type Department Care Team (Late st Contact Info) Description 05/17/2024 Lab Requisition [facility] - Main Lab [address] [facility] [employer] [place] [address] Carlos A Orozco MD [address] [facility] [address] [place], [phone] Unspecified dementia, unspecified severity, without behavioral disturbance, psychotic disturbance, mood disturbance, and anxiety (CMS/HCC V24, CMS/HCC V28); Essential (primary) hypertension; Atherosclerotic heart disease of [place] coronary artery without angina pectoris Social History [...] Unspecified essential hypertension Atherosclerotic heart disease of [place] coronary artery without angina pectoris documented in this encounter Care Teams Manager Utilization Review Relationship Specialty Start Date End Date Hafsa Torre NP [address] [place] [address] PCP - General 06/17/21 documented as of this encounter
--- OUTSIDE RECORDS SUMMARY | 2024-05-27 17:19 | XMS_ITS | Encounter Summary ---
Author Organization [facility] Address [id number] [place] [id number] Care Team Providers Care Wire Drawing Machine Tender Name Role Phone Hafsa Torre BACK WEDGER Primary Care Provider [phone] Encounter Details Date Type Department Care Team (Late st Contact Info) Description 05/03/2024 Lab Requisition [facility] [address] [facility] [address] Carlos A Orozco MD [address] [facility] [address] [place], [phone] Unspecified dementia, unspecified severity, without behavioral disturbance, psychotic disturbance, mood disturbance, and anxiety (CMS/HCC V24, CMS/HCC V28); Essential (primary) hypertension; Atherosclerotic heart disease of [place] coronary artery without angina pectoris Social History [...] Essential (primary) hypertension Atherosclerotic heart disease of [place] coronary artery without angina pectoris BASIC METABOLIC PANEL Routine 05/04/2024 8:13 AM EDT Unspecified dementia, unspecified severity, without behavioral disturbance, psychotic disturbance, mood disturbance, and anxiety (CMS/HCC) Essential (primary) hypertension Atherosclerotic heart disease of [place] coronary artery without angina pectoris documented in this encounter Results * (ABNORMAL) Basic metabolic panel (05/04/2024 8:13 AM EDT) Sodium 141 133 - 145 mmol/L LAB CHEMISTRY METHOD 05/04/2024 1:09 PM [facility] Potassium 3.7 3.5 - 5.5 mmol/L LAB CHEMISTRY METHOD 05/04/2024 1:09 PM [facility] Chloride 106 96 - 110 mmol/L LAB CHEMISTRY METHOD 05/04/2024 1:09 PM [facility] CO2 29 21 - 32 mmol/L LAB CHEMISTRY METHOD 05/04/2024 1:09 PM [facility] Anion Gap 6 3 - 11 LAB CHEMISTRY METHOD 05/04/2024 1:09 PM [facility] Glucose 111(H) 70 - 100 mg/dL LAB CHEMISTRY METHOD 05/04/2024 1:09 PM [facility] BUN 16 5 - 25 mg/dL LAB CHEMISTRY METHOD 05/04/2024 1:09 PM [facility] Creatinine 0.74 0.50 - 1.10 mg/dL LAB CHEMISTRY METHOD 05/04/2024 1:09 PM [facility] eGFR 83 >=60 mL/min/1. 73m2 LAB CHEMISTRY METHOD 05/04/2024 1:09 PM [facility] Comment:Calculation based on the??Chronic Kidney Disease Epidemiology Collaboration (CKD-EPI) equation refit??without adjustment for race. BUN/Creatinine Ratio 21.6 LAB CHEMISTRY METHOD 05/04/2024 1:09 PM [facility] Calcium 9.6 8.5 - 10.5 mg/dL LAB CHEMISTRY METHOD 05/04/2024 1:09 PM EDT [facility] Blood Venous blood specimen / Unknown Venipuncture / Unknown 05/04/2024 8:13 AM EDT 05/04/2024 10:46 AM EDT us Carlos A Orozco MD LAB BLOOD ORDERABLES Final Resul t [facility] [address] [place] [address], * (ABNORMAL) Complete blood count (05/04/2024 8:13 AM EDT) WBC 6.6 4.8 - 10.8 K/mcL LAB HEMETOLOGY METHOD 05/04/2024 10:58 AM EDT [facility] RBC 4.80 3.80 - 4.80 M/mcL LAB HEMETOLOGY METHOD [facility] Hemoglobin 14.2 11.5 - 16.0 g/dL LAB HEMETOLOGY METHOD 05/04/2024 10:58 AM [facility] Hematocrit 45.1 35.0 - 47.0 % LAB HEMETOLOGY METHOD 05/04/2024 10:58 AM [facility] MCV 94.7 79.0 - 98.0 FL LAB HEMETOLOGY METHOD 05/04/2024 10:58 AM EDT [facility] MCH 29.8 27.0 - 32.0 pcg LAB HEMETOLOGY METHOD 05/04/2024 10:58 AM [facility] MCHC 31.5(L) 32.0 - 37.0 g/dL LAB HEMETOLOGY METHOD 05/04/2024 10:58 AM [facility] RDW 13.1 11.0 - 15.0 % LAB HEMETOLOGY METHOD 05/04/2024 10:58 AM EDT [facility] Platelets 174 130 - 400 K/mcL LAB HEMETOLOGY METHOD 05/04/2024 10:58 AM EDT [facility] MPV 11.5(H) 7.0 - 11.0 FL LAB HEMETOLOGY METHOD 05/04/2024 10:58 AM EDT [facility] NRBC 0.0 <1.0 % LAB HEMETOLOG METHOD 05/04/2024 10:58 AM EDT [facility] NRBC Absolute 0.00 <0.10 K/mcL LAB HEMETOLOGY METHOD 05/04/2024 10:58 AM EDT [facility] Blood Venous blood specimen / Unknown Venipuncture / Unknown 05/04/2024 8:13 AM EDT 05/04/2024 10:46 AM EDT us Carlos A Orozco MD LAB BLOOD ORDERABLES Final Resul t [facility] [address] [place] [address], documented in this encounter Visit Diagnoses Diagnosis Unspecified dementia, unspecified severity, without behavioral disturbance, psychotic disturbance, mood disturbance, and anxiety (CMS/HCC V24, CMS/HCC V28) Essential (primary) hypertension Unspecified essential hypertension Atherosclerotic heart disease of [place] coronary artery without angina pectoris documented in this encounter Care Teams Wire Drawing Machine Tender Relationship Specialty Start Date End Date Hafsa Torre NP [address] [place] [address] PCP - General 06/17/21 documented as of this encounter
[2024-05-27 17:35] VITALS: BP 150/68; PULSE 78; RESP 16; TEMP 36.9; O2SAT 90
[2024-05-27 18:11] VITALS: BMI 21.1
--- NOTE | 2024-05-27 18:45 | PC.ADMIT ---
Brianna was admitted to S1 from on 05/27/24 at 17:30 on a 12A for the treatment of dementia with agitation. Skin/contraband check was completed by staff. She was noted to have a mepilex dressing to her coccyx. She was pleasantly confused during interaction. She denies suicidal and homicidal thoughts and intent. She is currently on a 1:1 for impassivity and falls.
[2024-05-27 19:42] LABS: Alanine Aminotransferase 461 U/L (0-31); Albumin Level 3.2 g/dL (3.5-5.0); Alkaline Phosphatase 231 U/L (39-117); Anion Gap 10 (12-20); Aspartate Amino Transferase 176 U/L (5-31); Bilirubin Total 0.8 mg/dL (0.0-1.0); Blood Urea Nitrogen 14 mg/dL (9-16); Calcium 9.5 mg/dL (8.4-10.2); Carbon Dioxide 30 mmol/L (22-29); Chloride 105 mmol/L (96-108); Creatinine Clr Calc Pharmacy 59.9; Estimated Glomerular Filt Rate > 60; Glucose Random 167 mg/dL (60-115); Sodium 142 mmol/L (135-145); Total Protein 5.9 g/dL (6.5-8.0)
[2024-05-28 07:36] LABS: Estimated Average Glucose 117 mg/dL; Hemoglobin A1C 142.8993 umol/L; Hemoglobin A1c % 5.7 % (<6.0); Total Hemoglobin (HGBA1C) 3636.5723 umol/L
[2024-05-28 07:45] LABS: Cholesterol 143 mg/dL (<200); HDL Cholesterol 41 mg/dL (>40); LDL Cholesterol Calculated 77 mg/dL (<100); Triglycerides 129 mg/dL (<150)
[2024-05-28 07:55] LABS: Thyroid Stimulating Hormone 0.43 uIU/mL (0.32-4.0)
[2024-05-28 08:00] VITALS: BP 115/57; PULSE 66; RESP 18; TEMP 36.8; O2SAT 98
[2024-05-28 08:08] LABS: Vitamin B12 1549 pg/mL (200-900)
[2024-05-28] MEDS: Aspirin Enteric Coated 81 MG TABLET.DR PO (09:17)
--- NOTE | 2024-05-28 14:59 | HO.PSYADMNOT ---
HPI Date of Service: 05/28/24 Chief Complaint: Combative Behavior Sources of Information: patient interviewed, chart reviewed and crisis/core team assessment reviewed HPI Subjective Notes: Conditional Voluntary (by HCP) Healthcare Proxy: Yes Narrative: Mrs. Dennison is 78 year-old woman with dementia who brought from [facility] initially on 05/18/2024 due to increase combative behaviors, entering to other people's room, intrusive and increase aggression. In the ED, pertinent labs include CBC without leukocytosis, no anemia. CMP without electrolyte abnormalities, BUN 15, Cr 0.69, creatinine clearance 55.8. AST 34, ALT 23, ammonia 23, UA with nitrite, leukocytes and bacteria. She was started on macrobid 05/18/2024. Subsequently transferred to geriatric psych unit for stabilization of combative behaviors secondary to dementia and at the time superimposed delirium related to UTI. Pt was also started on low dose of risperidone on 05/20/2024. LFT noted to start going up on 05/19/2024. Pt was transferred from [facility] to medical floor due to transaminitis as high as in 700's. Pt was seen by gastroenterology who reported that culprit could be related to either medications including Macrobid or atypical viral infection although hep panel was negative. Pt's medications including atorvastatin, macrobid and risperidone were discontinued. LFT have been gradually trending down. On the unit, pt presents as calm, physically less tired and able to ambulate and eat much better than when she was transferred to the unit. Pt not oriented to place, month year or situation. She has significant expressive and receptive aphasia. Past Psychiatric History: Inpt: none OP: none Medical Evaluation Reviewed: Yes [facility] Medical History PVD (peripheral vascular disease) Diabetes Diverticulosis Hyperlipidemia HTN (hypertension) UTI (urinary tract infection) Dementia Diagnostics Vital Signs (24Hr): Vital Signs - 24 hr 05/27/24 17:35 05/28/24 08:00 Temperature 98.4 F 98.3 F Pulse Rate 78 66 Respiratory Rate 16 18 Blood Pressure 150/68 H 115/57 L Pulse Oximetry 90 L 98 Oxygen Delivery Method Room Air Room Air BMI result Body Mass Index 21.1 Labs 05/29/24 08:14 Labs: Laboratory Results - last 48 hr 05/27/24 05/28/24 18:44 07:10 Sodium 142 Potassium 3.0 L Chloride 105 Carbon Dioxide 30 H Anion Gap 10 L BUN 14 Creatinine 0.64 Estim Creat Clear Calc 59.9 Estimated GFR > 60 Random Glucose 167 H Estimat Average Glucose 117 Hemoglobin A1c % 5.7 Calcium 9.5 Total Bilirubin 0.8 AST 176 H ALT 461 H Alkaline Phosphatase 231 H Total Protein 5.9 L Albumin 3.2 L Triglycerides 129 Cholesterol 143 LDL Cholesterol, Calc 77 HDL Cholesterol 41 Vitamin B12 1549 H Folate 14.0 TSH 0.43 Meds/Allergies Meds Home Medications ?Medication ?Instructions ?Recorded ?Confirmed ?Type aspirin 81 mg capsule 81 mg PO DAILY 05/18/24 05/26/24 History bisacodyl 10 mg rectal suppository 10 mg LA DAILY PRN Constipation 05/18/24 05/26/24 History cyanocobalamin (vitamin B-12) 1,000 mcg PO DAILY Supplement 05/18/24 05/26/24 History 1,000 mcg tablet magnesium hydroxide 400 mg/5 mL 30 ml PO DAILY PRN Constipation 05/18/24 05/26/24 History oral suspension (Milk of Magnesia) multivitamin with minerals 1 cap PO DAILY 05/18/24 05/26/24 History naloxone 4 mg/actuation nasal 4 mg intranasal Q3M PRN Opiate 05/18/24 05/26/24 History spray (Narcan) Reversal amlodipine 5 mg tablet 5 mg PO DAILY 05/29/24 05/29/24 History atorvastatin 20 mg tablet 20 mg PO DAILY 05/29/24 05/29/24 History divalproex 250 mg tablet,delayed 250 mg PO BID 05/29/24 05/29/24 History release donepezil 5 mg tablet 5 mg PO DAILY 05/29/24 05/29/24 History mirtazapine 15 mg tablet 15 mg PO BEDTIME 05/29/24 05/29/24 History quetiapine 25 mg tablet 25 mg PO BEDTIME 05/29/24 05/29/24 History Allergies Allergies Allergy/AdvReac Type Severity Reaction Status Date / Time ciprofloxacin Allergy Unknown Verified 05/18/24 09:00 codeine Allergy Unknown Verified 05/18/24 09:00 haloperidol [From Haldol] Allergy Unknown Verified 05/18/24 09:00 oxycodone Allergy Unknown Verified 05/18/24 09:00 risedronate sodium Allergy Unknown Verified 05/18/24 09:00 [From Actonel] tetracycline Allergy Unknown Verified 05/18/24 09:00 trazodone Allergy Unknown Verified 05/18/24 09:00 Mental Status Exam Mental Status Exam Narrative: Appearance: casually groomed, thin, good hygiene, in NAD Behavior: calmer Psychomotor: no agitation or retardation noted Speech: mumbles at times, regular rate, spontaneous TP: aphasia TC: thanking this news writer for coming to see her. Mood: good Affect: smiles, thinks she knows this news writer VH/AH: no signs Delusions: confabulation Insight/judgment: impaired x 2. memory/cog: alert, not oriented to place, month or year nor situation. severe cognitive impairments. Assessment & Plan Assessment & Plan (1) Major neurocognitive disorder: Status: Acute Code(s): F03.90 - Unspecified dementia, unspecified severity, without behavioral disturbance, psychotic disturbance, mood disturbance, and anxiety Plan Mrs. Dennison is a 78 year-old woman with hx of dementia, advanced at this time who initially was brought via EMS from [facility] due to combative behaviors s/s to dementia. She was admitted to [facility] and transfer to medical floor due to transaminitis which seem to be related to medications or atypical viral infection although hep panel was negative. LFT are tending down. Will hold for now starting new medication. Pt presents as more alert, and able to walk. She is eating well. PLAN 1. Admit to S1, CV signed by HCP, one to one due to fall risk. 2. continue aspirin 3. will hold starting medication and introduce as needed one by one monitoring liver function. 4. aftercare planning. Patient educated on: diagnosis (HCP) and medication risk/benefits Reason for continued inpatient stay Substantial Risk for: inability to function Statement Statement: I have reviewed the history and physical and performed a pertinent examination on my patient. No changes have occurred unless specified. If the History and Physical was not performed prior to admission, the Hospitalist's service will be consulted for completing the admission physical. Time Spent With Patient Time: Total time managing care of this patient today ____ minutes.
[2024-05-28] MEDS: Potassium Chloride ER 10 MEQ TABLET.ER PO (15:30)
[2024-05-28 20:00] VITALS: BP 131/54; PULSE 62; RESP 16; TEMP 36.2; O2SAT 99
[2024-05-29 08:51] VITALS: BP 112/56; PULSE 61; RESP 16; TEMP 36.4; O2SAT 99
[2024-05-29] MEDS: Aspirin Enteric Coated 81 MG TABLET.DR PO (08:52)
[2024-05-29 09:04] LABS: Alanine Aminotransferase 318 U/L (0-31); Albumin Level 3.1 g/dL (3.5-5.0); Alkaline Phosphatase 207 U/L (39-117); Anion Gap 12 (12-20); Aspartate Amino Transferase 123 U/L (5-31); Bilirubin Total 0.7 mg/dL (0.0-1.0); Blood Urea Nitrogen 14 mg/dL (9-16); Calcium 9.3 mg/dL (8.4-10.2); Carbon Dioxide 25 mmol/L (22-29); Chloride 107 mmol/L (96-108); Creatinine Clr Calc Pharmacy 62.8; Estimated Glomerular Filt Rate > 60; Glucose Random 111 mg/dL (60-115); Potassium 4.1 mmol/L (3.3-5.1); Sodium 140 mmol/L (135-145); Total Protein 5.8 g/dL (6.5-8.0)
[2024-05-29] MEDS: Sertraline HCL 25 MG TABLET PO (16:59)
[2024-05-29 20:00] VITALS: BP 165/67; PULSE 61; RESP 17; TEMP 35.9; O2SAT 98
[2024-05-29] MEDS: traZODone HCL 50 MG TABLET PO (21:55)
--- NOTE | 2024-05-29 22:25 | P.PNPSI_ITS ---
Subjective Subjective Date of Service: 05/29/24 Reason For Visit: Combative Behavior Subjective Notes: Conditional Voluntary Healthcare Proxy: Yes Interim History: Pt slept through the night. She is at times tearful and anxious looking but unable to express reason. It also changes quickly. Her speech with severe aphasia bot receptive and expressive. continue to monitor LFTs which have continue to go down. No behavioral concerns. Review of Systems Review of Systems Yes Unobtainable due to mental status Mental Status Exam Mental Status Exam Narrative: Appearance: casually groomed, thin, good hygiene, in NAD Behavior: calmer Psychomotor: no agitation or retardation noted Speech: mumbles at times, regular rate, spontaneous TP: aphasia TC: thanking this handbook writer for coming to see her. Mood: good Affect: smiles, thinks she knows this handbook writer VH/AH: no signs Delusions: confabulation Insight/judgment: impaired x 2. memory/cog: alert, not oriented to place, month or year nor situation. severe cognitive impairments. Diagnostics Vital Signs (24Hr): Vital Signs - 24 hr 05/29/24 08:51 05/29/24 20:00 Temperature 97.5 F 96.7 F L Pulse Rate 61 61 Respiratory Rate 16 17 Blood Pressure 112/56 L 165/67 H Pulse Oximetry 99 98 Oxygen Delivery Method Room Air Room Air BMI result Body Mass Index 21.1 Labs 05/29/24 08:14 Labs: Laboratory Results - last 48 hr 05/28/24 05/29/24 07:10 08:14 Sodium 140 Potassium 4.1 D Chloride 107 Carbon Dioxide 25 Anion Gap 12 BUN 14 Creatinine 0.61 Estim Creat Clear Calc 62.8 Estimated GFR > 60 Random Glucose 111 Estimat Average Glucose 117 Hemoglobin A1c % 5.7 Calcium 9.3 Total Bilirubin 0.7 AST 123 H ALT 318 H Alkaline Phosphatase 207 H Total Protein 5.8 L Albumin 3.1 L Triglycerides 129 Cholesterol 143 LDL Cholesterol, Calc 77 HDL Cholesterol 41 Vitamin B12 1549 H Folate 14.0 TSH 0.43 Medications Medications Current Medications Acetaminophen (Acetaminophen 325 Mg Tablet) 650 mg PO Q6H PRN PRN Reason: Headache/Pain, Scale 1-10 Al Hydroxide/Mg Hydroxide (Magnesium Hydrox/Alum Hydrox 30 Ml Oral.Susp) 30 ml PO Q6H PRN PRN Reason: Heartburn/Nausea Aspirin (Aspirin Enteric Coated 81 Mg Tablet.Dr) 81 mg PO DAILY FAVIOLA Last Admin: 05/29/24 08:52 Dose: 81 mg Magnesium Hydroxide (Milk Of Magnesia 30 Ml Oral.Susp) 30 ml PO DAILY PRN PRN Reason: Constipation Sertraline HCl (Sertraline Hcl 25 Mg Tablet) 25 mg PO DAILY [facility] Last Admin: 05/29/24 16:59 Dose: 25 mg Trazodone HCl (Trazodone Hcl 50 Mg Tablet) 50 mg PO BEDTIME PRN PRN Reason: Insomnia Last Admin: 05/29/24 21:55 Dose: 50 mg Allergies Allergies Allergy/AdvReac Type Severity Reaction Status Date / Time ciprofloxacin Allergy Unknown Verified 05/18/24 09:00 codeine Allergy Unknown Verified 05/18/24 09:00 haloperidol [From Haldol] Allergy Unknown Verified 05/18/24 09:00 oxycodone Allergy Unknown Verified 05/18/24 09:00 risedronate sodium Allergy Unknown Verified 05/18/24 09:00 [From Actonel] tetracycline Allergy Unknown Verified 05/18/24 09:00 trazodone Allergy Unknown Verified 05/18/24 09:00 Assessment & Plan Assessment & Plan (1) Major neurocognitive disorder: Status: Acute Code(s): F03.90 - Unspecified dementia, unspecified severity, without behavioral disturbance, psychotic disturbance, mood disturbance, and anxiety Plan Mrs. Dennison is a 78 year-old woman with hx of dementia, advanced at this time who initially was brought via EMS from [facility] due to combative behaviors s/s to dementia. She was admitted to [facility] and transfer to medical floor due to transaminitis which seem to be related to medications or atypical viral infection although hep panel was negative. LFT are tending down. Will hold for now starting new medication. Pt presents as more alert, and able to walk. She is eating well. PLAN 05/29 continue tx. continue to monitor LFT. will start sertraline for tearfulness and anxious mood. Reason for continued inpatient stay Substantial Risk for: inability to function Time Spent With Patient Time: Total time managing care of this patient today ____ minutes.
[2024-05-29] MEDS: LORazepam 1 MG TABLET PO (23:41)
[2024-05-29] MEDS: OLANZapine 5 MG TABLET PO (23:41)
--- NOTE | 2024-05-30 00:29 | PC.NURSE ---
Patient got extremely agitated, when attempted to redirect, started throwing punches and biting staff member, provider notified/ordered ativan 1 mg PO and Olanzapine 5 mg PO/administered as ordered at 2341 with good effect, currently in bed appears sleeping, 1:1 for safety check, will continue to monitor
[2024-05-30 08:00] VITALS: BP 124/55; PULSE 52; RESP 16; TEMP 36; O2SAT 97
[2024-05-30] MEDS: Sertraline HCL 25 MG TABLET PO (08:38)
[2024-05-30] MEDS: Aspirin Enteric Coated 81 MG TABLET.DR PO (08:38)
--- NOTE | 2024-05-30 12:59 | PC.NURSE ---
Urine sample for urine culture collected at 12:15 and sent to the labs. Provider Alexa and labs notified about an issue to document urine collection.
[2024-05-30 13:22] VITALS: BMI 21.1
--- NOTE | 2024-05-30 13:31 | MHC.CLN ---
NUTRITION DIET=REGULAR, CHOPPED. ADDING ENSURE TID TO PROMOTE NUTRITIONAL INTAKE. SUPPLEMENT PROVIDES 1050 KCALS, 60 G PROTEIN. WEIGHT HX SHOWS SIGNIFICANT WEIGHT LOSS X 30 DAYS. HX AGITATION AND POOR PO INTAKE. QUALIFIES MODERATELY MALNOURISHED IN THE CONTEXT OF CHRONIC ILLNESS. ENCOURAGE INTAKE AT MEALS AND SNACKS ABLE. SEE CLINICAL NUTRITION ASSESSMENT 05/30/24.
[2024-05-30] MEDS: OLANZapine 2.5 MG TABLET PO ×2 (14:45→19:48)
--- NOTE | 2024-05-30 19:24 | PC.NURSE ---
Pt is alert, oriented to self only. Pleasant and calm on approach. Disorganized, non-sensical speech. Compliant with meds. Denies pain. Good po intake for breakfast. Attended group activity at am. Visible in a milieu between meals. No increased behaviors noted. Will continue to monitor. Urine sample for urine culture collected. Awaiting results.
--- NOTE | 2024-05-30 20:09 | HO.PSYCHPN ---
Subjective Subjective Date of Service: 05/30/24 Reason For Visit: Combative Behavior Subjective Notes: Conditional Voluntary Interim History: Pt had episode of combative behaviors last evening, swinging at staff, attempting to bit them. She was given olanzapine 5mg IM with ativan 1mg IM with good effect. She slept rest of the night. This morning she was awake early. She had breakfast. She has been ambulating with 1:1 due to fall risk. VS stable. Review of Systems Review of Systems Yes Unobtainable due to mental status Mental Status Exam Mental Status Exam Narrative: Appearance: casually groomed, thin, good hygiene, in NAD Behavior: calmer Psychomotor: no agitation or retardation noted Speech: mumbles at times, regular rate, spontaneous TP: aphasia TC: thanking this global technical writer for coming to see her. Mood: good Affect: smiles, thinks she knows this global technical writer VH/AH: no signs Delusions: confabulation Insight/judgment: impaired x 2. memory/cog: alert, not oriented to place, month or year nor situation. severe cognitive impairments. Diagnostics Vital Signs (24Hr): Vital Signs - 24 hr 05/30/24 08:00 Temperature 96.8 F Pulse Rate 52 Respiratory Rate 16 Blood Pressure 124/55 L Pulse Oximetry 97 Oxygen Delivery Method Room Air BMI result Body Mass Index 21.1 Labs 05/29/24 08:14 Labs: Laboratory Results - last 48 hr 05/29/24 08:14 Sodium 140 Potassium 4.1 D Chloride 107 Carbon Dioxide 25 Anion Gap 12 BUN 14 Creatinine 0.61 Estim Creat Clear Calc 62.8 Estimated GFR > 60 Random Glucose 111 Calcium 9.3 Total Bilirubin 0.7 AST 123 H ALT 318 H Alkaline Phosphatase 207 H Total Protein 5.8 L Albumin 3.1 L Medications Medications Current Medications Acetaminophen (Acetaminophen 325 Mg Tablet) 650 mg PO Q6H PRN PRN Reason: Headache/Pain, Scale 1-10 Al Hydroxide/Mg Hydroxide (Magnesium Hydrox/Alum Hydrox 30 Ml Oral.Susp) 30 ml PO Q6H PRN PRN Reason: Heartburn/Nausea Aspirin (Aspirin Enteric Coated 81 Mg Tablet.) 81 mg PO DAILY [facility] Last Admin: 05/30/24 08:38 Dose: 81 mg Lorazepam (Lorazepam 0.5 Mg Tablet) 0.5 mg PO DAILY PRN PRN Reason: agitation Magnesium Hydroxide (Milk Of Magnesia 30 Ml Oral.Susp) 30 ml PO DAILY PRN PRN Reason: Constipation Olanzapine (Olanzapine 2.5 Mg Tablet) 2.5 mg PO BID@1500,2100 [facility] Last Admin: 05/30/24 19:48 Dose: 2.5 mg Sertraline HCl (Sertraline Hcl 50 Mg Tablet) 50 mg PO DAILY [facility] Trazodone HCl (Trazodone Hcl 50 Mg Tablet) 50 mg PO BEDTIME PRN PRN Reason: Insomnia Last Admin: 05/29/24 21:55 Dose: 50 mg Allergies Allergies Allergy/AdvReac Type Severity Reaction Status Date / Time ciprofloxacin Allergy Unknown Verified 05/18/24 09:00 codeine Allergy Unknown Verified 05/18/24 09:00 haloperidol [From Haldol] Allergy Unknown Verified 05/18/24 09:00 oxycodone Allergy Unknown Verified 05/18/24 09:00 risedronate sodium Allergy Unknown Verified 05/18/24 09:00 [From Actonel] tetracycline Allergy Unknown Verified 05/18/24 09:00 trazodone Allergy Unknown Verified 05/18/24 09:00 Assessment & Plan Assessment & Plan (1) Major neurocognitive disorder: Status: Acute Code(s): F03.90 - Unspecified dementia, unspecified severity, without behavioral disturbance, psychotic disturbance, mood disturbance, and anxiety Plan Mrs. Dennison is a 78 year-old woman with hx of dementia, advanced at this time who initially was brought via EMS from [facility] due to combative behaviors s/s to dementia. She was admitted to [facility] and transfer to medical floor due to transaminitis which seem to be related to medications or atypical viral infection although hep panel was negative. LFT are tending down. Will hold for now starting new medication. Pt presents as more alert, and able to walk. She is eating well. PLAN 05/29 started sertraline 25mg po daily 05/30 will schedule low dose of olanzapine 2.5mg po BID for combative behaviors mostly in evening. will check LFT on 05/31. Reason for continued inpatient stay Substantial Risk for: inability to function Time Spent With Patient Time: Total time managing care of this patient today ____ minutes.
[2024-05-30 20:30] VITALS: BP 123/58; PULSE 60; RESP 18; TEMP 36.8; O2SAT 98
--- NOTE | 2024-05-30 21:25 | PC.NURSE ---
[id number] Brianna had a witnessed fall by her 1:1 sitter. She went to sit in a chair, and missed and went to the floor sitting on the side of her thigh. She did not hit her head or sustain injury. VS 123/58, HR80, 98.2f, SAO2 98%@RA, No mental status changes, full range of motion, ambulating without pain, Neuros intact, daughter Dagmar Solano, Rehabilitation Aide Danika Becker, and DOC Blanco Weir notified
[2024-05-30 22:10] VITALS: BP 123/58; PULSE 60; RESP 18; TEMP 36.8; O2SAT 98
--- NOTE | 2024-05-31 00:08 | PC.NURSE ---
At 2340 Brianna had a witnessed fall by her 1:1 sitter in her room. She went to get into bed, and lied down on floor instead . She did not hit her head or sustain injury. VS 148/71, HR67, r18, 97.6f, SAO2 97%@RA, No mental status changes, full range of motion, ambulating without pain, Neuros intact, Offbearer Sewer Pipe Danika Becker, and DOC Blanco Weir notified
[2024-05-31 08:00] VITALS: BP 121/56; PULSE 63; RESP 16; TEMP 36.3; O2SAT 99
[2024-05-31] MEDS: Aspirin Enteric Coated 81 MG TABLET.DR PO (08:14)
[2024-05-31] MEDS: Sertraline HCL 50 MG TABLET PO (08:14)
[2024-05-31 09:51] LABS: Alanine Aminotransferase 210 U/L (0-31); Albumin Level 3.4 g/dL (3.5-5.0); Alkaline Phosphatase 189 U/L (39-117); Anion Gap 11 (12-20); Aspartate Amino Transferase 73 U/L (5-31); Bilirubin Total 0.8 mg/dL (0.0-1.0); Blood Urea Nitrogen 16 mg/dL (9-16); Calcium 9.4 mg/dL (8.4-10.2); Carbon Dioxide 26 mmol/L (22-29); Chloride 107 mmol/L (96-108); Creatinine Clr Calc Pharmacy 53.2; Estimated Glomerular Filt Rate > 60; Glucose Random 179 mg/dL (60-115); Sodium 140 mmol/L (135-145); Total Protein 5.9 g/dL (6.5-8.0)
--- NOTE | 2024-05-31 11:30 | HO.PSYCHPN ---
Subjective Subjective Date of Service: 05/31/24 Reason For Visit: Combative Behavior Subjective Notes: Conditional Voluntary Healthcare Proxy: Yes Interim History: She had some difficulty falling asleep. She was pleasant most of the day, at times due to confusion easily irritable but able to be redirected. noted some cogwheel on both arms. aphasia, at baseline. Review of Systems Review of Systems Yes Unobtainable due to mental status Mental Status Exam Mental Status Exam Narrative: Appearance: casually groomed, thin, good hygiene, in NAD Behavior: calmer Psychomotor: no agitation or retardation noted Speech: mumbles at times, regular rate, spontaneous TP: aphasia TC: thanking this rfp writer for coming to see her. Mood: good Affect: smiles, thinks she knows this rfp writer VH/AH: no signs Delusions: confabulation Insight/judgment: impaired x 2. memory/cog: alert, not oriented to place, month or year nor situation. severe cognitive impairments. Diagnostics Vital Signs (24Hr): Vital Signs - 24 hr 05/30/24 20:30 05/30/24 22:10 05/31/24 08:00 Temperature 98.2 F 98.2 F 97.3 F Pulse Rate 60 60 63 Respiratory Rate 18 18 16 Blood Pressure 123/58 L 123/58 L 121/56 L Pulse Oximetry 98 98 99 Oxygen Delivery Method Room Air Room Air BMI result Body Mass Index 21.1 Labs 05/31/24 09:19 Labs: Laboratory Results - last 48 hr 05/31/24 09:19 Sodium 140 Potassium 4.0 Chloride 107 Carbon Dioxide 26 Anion Gap 11 L BUN 16 Creatinine 0.72 Estim Creat Clear Calc 53.2 Estimated GFR > 60 Random Glucose 179 H Calcium 9.4 Total Bilirubin 0.8 AST 73 H ALT 210 H Alkaline Phosphatase 189 H Total Protein 5.9 L Albumin 3.4 L Medications Medications Current Medications Acetaminophen (Acetaminophen 325 Mg Tablet) 650 mg PO Q6H PRN PRN Reason: Headache/Pain, Scale 1-10 Al Hydroxide/Mg Hydroxide (Magnesium Hydrox/Alum Hydrox 30 Ml Oral.Susp) 30 ml PO Q6H PRN PRN Reason: Heartburn/Nausea Aspirin (Aspirin Enteric Coated 81 Mg Tablet.) 81 mg PO DAILY [facility] Last Admin: 05/31/24 08:14 Dose: 81 mg Lorazepam (Lorazepam 0.5 Mg Tablet) 0.5 mg PO DAILY PRN PRN Reason: agitation Magnesium Hydroxide (Milk Of Magnesia 30 Ml Oral.Susp) 30 ml PO DAILY PRN PRN Reason: Constipation Olanzapine (Olanzapine 2.5 Mg Tablet) 2.5 mg PO BID@1500,2100 [facility] Last Admin: 05/30/24 19:48 Dose: 2.5 mg Sertraline HCl (Sertraline Hcl 50 Mg Tablet) 50 mg PO DAILY [facility] Last Admin: 05/31/24 08:14 Dose: 50 mg Trazodone HCl (Trazodone Hcl 50 Mg Tablet) 50 mg PO BEDTIME PRN PRN Reason: Insomnia Last Admin: 05/29/24 21:55 Dose: 50 mg Allergies Allergies Allergy/AdvReac Type Severity Reaction Status Date / Time ciprofloxacin Allergy Unknown Verified 05/18/24 09:00 codeine Allergy Unknown Verified 05/18/24 09:00 haloperidol [From Haldol] Allergy Unknown Verified 05/18/24 09:00 oxycodone Allergy Unknown Verified 05/18/24 09:00 risedronate sodium Allergy Unknown Verified 05/18/24 09:00 [From Actonel] tetracycline Allergy Unknown Verified 05/18/24 09:00 trazodone Allergy Unknown Verified 05/18/24 09:00 Assessment & Plan Assessment & Plan (1) Major neurocognitive disorder: Status: Acute Code(s): F03.90 - Unspecified dementia, unspecified severity, without behavioral disturbance, psychotic disturbance, mood disturbance, and anxiety Plan Mrs. Dennison is a 78 year-old woman with hx of dementia, advanced at this time who initially was brought via EMS from [facility] due to combative behaviors s/s to dementia. She was admitted to [facility] and transfer to medical floor due to transaminitis which seem to be related to medications or atypical viral infection although hep panel was negative. LFT are tending down. Will hold for now starting new medication. Pt presents as more alert, and able to walk. She is eating well. PLAN 05/29 started sertraline 25mg po daily 05/30 will schedule low dose of olanzapine 2.5mg po BID for combative behaviors mostly in evening. will check LFT on 05/31. 05/31 continue tx. pending urine culture. Reason for continued inpatient stay Substantial Risk for: inability to function Time Spent With Patient Time: Total time managing care of this patient today ____ minutes.
[2024-05-31] MEDS: LORazepam 0.5 MG TABLET PO (11:43)
[2024-05-31] MEDS: Benztropine Mesylate 0.5 MG TABLET PO (15:37)
[2024-05-31] MEDS: OLANZapine 2.5 MG TABLET PO (15:38)
[2024-05-31 20:00] VITALS: BP 120/82; PULSE 88; RESP 16; TEMP 35.9; O2SAT 97
[2024-06-01] MEDS: LORazepam 0.5 MG TABLET PO (04:00)
[2024-06-01 09:28] VITALS: BP 113/57; PULSE 79; RESP 16; TEMP 36.3; O2SAT 99
[2024-06-01] MEDS: Aspirin Enteric Coated 81 MG TABLET.DR PO (13:41)
[2024-06-01] MEDS: Sertraline HCL 50 MG TABLET PO (13:41)
--- NOTE | 2024-06-01 14:17 | MHC.CLN ---
F/U DIET=REGULAR, CHOPPED. ENSURE TID TO PROMOTE NUTRITIONAL INTAKE. SUPPLEMENT PROVIDES 1050 KCALS, 60 G PROTEIN. VARIABLE PO INTAKE, 0-100%. HX AGITATION AND POOR PO INTAKE. ENCOURAGE INTAKE AT MEALS AND SNACKS ABLE.
[2024-06-01] MEDS: OLANZapine 2.5 MG TABLET PO (18:15)
[2024-06-01 20:00] VITALS: BP 140/59; PULSE 58; RESP 18; TEMP 36.6; O2SAT 97
--- NOTE | 2024-06-01 21:09 | P.PNPSI_ITS ---
Subjective Subjective Date of Service: 06/01/24 Reason For Visit: Combative Behavior Subjective Notes: Conditional Voluntary Interim History: Pt had difficulty sleeping through the night, episodes of combative behaviors. During the day, pleasant tremulous. resting and action tremors, unsteady gait, one to one due to fall risk. Pleasant when seeing this technical writer. Urine culture was positive for neg amy gram- started on bactrim DS. monitor LFTs. Review of Systems Review of Systems Yes Unobtainable due to mental status Mental Status Exam Mental Status Exam Narrative: Appearance: casually groomed, thin, good hygiene, in NAD Behavior: calmer Psychomotor: no agitation or retardation noted Speech: mumbles at times, regular rate, spontaneous TP: aphasia TC: thanking this technical writer for coming to see her. Mood: good Affect: smiles, thinks she knows this technical writer VH/AH: no signs Delusions: confabulation Insight/judgment: impaired x 2. memory/cog: alert, not oriented to place, month or year nor situation. severe cognitive impairments. Diagnostics Vital Signs (24Hr): Vital Signs - 24 hr 06/01/24 09:28 Temperature 97.3 F Pulse Rate 79 Respiratory Rate 16 Blood Pressure 113/57 L Pulse Oximetry 99 Oxygen Delivery Method Room Air BMI result Body Mass Index 21.1 Labs 05/31/24 09:19 Labs: Laboratory Results - last 48 hr 05/31/24 09:19 Sodium 140 Potassium 4.0 Chloride 107 Carbon Dioxide 26 Anion Gap 11 L BUN 16 Creatinine 0.72 Estim Creat Clear Calc 53.2 Estimated GFR > 60 Random Glucose 179 H Calcium 9.4 Total Bilirubin 0.8 AST 73 H ALT 210 H Alkaline Phosphatase 189 H Total Protein 5.9 L Albumin 3.4 L Medications Medications Current Medications Acetaminophen (Acetaminophen 325 Mg Tablet) 650 mg PO Q6H PRN PRN Reason: Headache/Pain, Scale 1-10 Al Hydroxide/Mg Hydroxide (Magnesium Hydrox/Alum Hydrox 30 Ml Oral.Susp) 30 ml PO Q6H PRN PRN Reason: Heartburn/Nausea Aspirin (Aspirin Enteric Coated 81 Mg Tablet.) 81 mg PO DAILY [facility] Last Admin: 06/01/24 13:41 Dose: 81 mg Lorazepam (Lorazepam 0.5 Mg Tablet) 0.5 mg PO DAILY PRN PRN Reason: agitation Last Admin: 06/01/24 04:00 Dose: 0.5 mg Magnesium Hydroxide (Milk Of Magnesia 30 Ml Oral.Susp) 30 ml PO DAILY PRN PRN Reason: Constipation Olanzapine (Olanzapine 2.5 Mg Tablet) 2.5 mg PO DAILY@1600 [facility] Last Admin: 06/01/24 18:15 Dose: 2.5 mg Sertraline HCl (Sertraline Hcl 50 Mg Tablet) 50 mg PO DAILY [facility] Last Admin: 06/01/24 13:41 Dose: 50 mg Trazodone HCl (Trazodone Hcl 50 Mg Tablet) 50 mg PO BEDTIME PRN PRN Reason: Insomnia Last Admin: 05/29/24 21:55 Dose: 50 mg Allergies Allergies Allergy/AdvReac Type Severity Reaction Status Date / Time ciprofloxacin Allergy Unknown Verified 05/18/24 09:00 codeine Allergy Unknown Verified 05/18/24 09:00 haloperidol [From Haldol] Allergy Unknown Verified 05/18/24 09:00 oxycodone Allergy Unknown Verified 05/18/24 09:00 risedronate sodium Allergy Unknown Verified 05/18/24 09:00 [From Actonel] tetracycline Allergy Unknown Verified 05/18/24 09:00 trazodone Allergy Unknown Verified 05/18/24 09:00 macrobid AdvReac Severe transaminit Uncoded 05/31/24 14:01 is Assessment & Plan Assessment & Plan (1) Major neurocognitive disorder: Status: Acute Code(s): F03.90 - Unspecified dementia, unspecified severity, without behavioral disturbance, psychotic disturbance, mood disturbance, and anxiety Plan Mrs. Dennison is a 78 year-old woman with hx of dementia, advanced at this time who initially was brought via EMS from [facility] due to combative behaviors s/s to dementia. She was admitted to [facility] and transfer to medical floor due to transaminitis which seem to be related to medications or atypical viral infection although hep panel was negative. LFT are tending down. Will hold for now starting new medication. Pt presents as more alert, and able to walk. She is eating well. PLAN 05/29 started sertraline 25mg po daily 05/30 will schedule low dose of olanzapine 2.5mg po BID for combative behaviors mostly in evening. will check LFT on 05/31. 05/31 continue tx. pending urine culture. 06/01 restless at night. during the day calmer, tremolous, sensitive to effect on antipsychotic. urine culture positive for gram johanna amy- started on bactrim DS- monitor LFTs. Reason for continued inpatient stay Substantial Risk for: inability to function Time Spent With Patient Time: Total time managing care of this patient today ____ minutes.
[2024-06-02] MEDS: Sertraline HCL 50 MG TABLET PO (07:52)
[2024-06-02] MEDS: Sulfamethox/Trimeth 800/160 TABLET 1 TAB PO ×2 (07:53→20:01)
[2024-06-02] MEDS: Aspirin Enteric Coated 81 MG TABLET.DR PO (07:53)
[2024-06-02 07:54] VITALS: BP 136/63; PULSE 51; RESP 14; TEMP 36.7; O2SAT 98
--- NOTE | 2024-06-02 08:28 | P.PNPSI_ITS ---
Subjective Subjective Date of Service: 06/02/24 Reason For Visit: Combative Behavior Subjective Notes: Conditional Voluntary Healthcare Proxy: Yes Interim History: Pt slept 7hrs at night. Less combative behaviors, felt asleep last night before first dose of bactrim. started this morning. tremulous, action and resting tremor, unsteady gait. Urine culture was positive for neg amy gram- started on bactrim DS. monitor LFTs. Review of Systems Review of Systems Yes Unobtainable due to mental status Mental Status Exam Mental Status Exam Narrative: Appearance: casually groomed, thin, good hygiene, in NAD Behavior: calmer Psychomotor: no agitation or retardation noted Speech: mumbles at times, regular rate, spontaneous TP: aphasia TC: thanking this show card writer for coming to see her. Mood: good Affect: smiles, thinks she knows this show card writer VH/AH: no signs Delusions: confabulation Insight/judgment: impaired x 2. memory/cog: alert, not oriented to place, month or year nor situation. severe cognitive impairments. Diagnostics Vital Signs (24Hr): Vital Signs - 24 hr 06/01/24 09:28 06/01/24 20:00 06/02/24 07:54 Temperature 97.3 F 97.8 F 98.1 F Pulse Rate 79 58 51 Respiratory Rate 16 18 14 Blood Pressure 113/57 L 140/59 H 136/63 Pulse Oximetry 99 97 98 Oxygen Delivery Method Room Air Room Air Room Air BMI result Body Mass Index 21.1 Labs 05/31/24 09:19 Labs: Laboratory Results - last 48 hr 05/31/24 09:19 Sodium 140 Potassium 4.0 Chloride 107 Carbon Dioxide 26 Anion Gap 11 L BUN 16 Creatinine 0.72 Estim Creat Clear Calc 53.2 Estimated GFR > 60 Random Glucose 179 H Calcium 9.4 Total Bilirubin 0.8 AST 73 H ALT 210 H Alkaline Phosphatase 189 H Total Protein 5.9 L Albumin 3.4 L Medications Medications Current Medications Acetaminophen (Acetaminophen 325 Mg Tablet) 650 mg PO Q6H PRN PRN Reason: Headache/Pain, Scale 1-10 Al Hydroxide/Mg Hydroxide (Magnesium Hydrox/Alum Hydrox 30 Ml Oral.Susp) 30 ml PO Q6H PRN PRN Reason: Heartburn/Nausea Aspirin (Aspirin Enteric Coated 81 Mg Tablet.) 81 mg PO DAILY [facility] Last Admin: 06/02/24 07:53 Dose: 81 mg Lorazepam (Lorazepam 0.5 Mg Tablet) 0.5 mg PO DAILY PRN PRN Reason: agitation Last Admin: 06/01/24 04:00 Dose: 0.5 mg Magnesium Hydroxide (Milk Of Magnesia 30 Ml Oral.Susp) 30 ml PO DAILY PRN PRN Reason: Constipation Olanzapine (Olanzapine 2.5 Mg Tablet) 2.5 mg PO DAILY@1600 [facility] Last Admin: 06/01/24 18:15 Dose: 2.5 mg Sertraline HCl (Sertraline Hcl 50 Mg Tablet) 50 mg PO DAILY [facility] Last Admin: 06/02/24 07:52 Dose: 50 mg Trazodone HCl (Trazodone Hcl 50 Mg Tablet) 50 mg PO BEDTIME PRN PRN Reason: Insomnia Last Admin: 05/29/24 21:55 Dose: 50 mg Trimethoprim/Sulfamethoxazole (Sulfamethox/Trimeth 800/160 Tablet) 1 tab PO BID [facility] Stop: 06/08/24 09:01 Last Admin: 06/02/24 07:53 Dose: 1 tab Allergies Allergies Allergy/AdvReac Type Severity Reaction Status Date / Time ciprofloxacin Allergy Unknown Verified 05/18/24 09:00 codeine Allergy Unknown Verified 05/18/24 09:00 haloperidol [From Haldol] Allergy Unknown Verified 05/18/24 09:00 oxycodone Allergy Unknown Verified 05/18/24 09:00 risedronate sodium Allergy Unknown Verified 05/18/24 09:00 [From Actonel] tetracycline Allergy Unknown Verified 05/18/24 09:00 trazodone Allergy Unknown Verified 05/18/24 09:00 macrobid AdvReac Severe transaminit Uncoded 05/31/24 14:01 is Assessment & Plan Assessment & Plan (1) Major neurocognitive disorder: Status: Acute Code(s): F03.90 - Unspecified dementia, unspecified severity, without behavioral disturbance, psychotic disturbance, mood disturbance, and anxiety Plan Mrs. Dennison is a 78 year-old woman with hx of dementia, advanced at this time who initially was brought via EMS from [facility] due to combative behaviors s/s to dementia. She was admitted to [facility] and transfer to medical floor due to transaminitis which seem to be related to medications or atypical viral infection although hep panel was negative. LFT are tending down. Will hold for now starting new medication. Pt presents as more alert, and able to walk. She is eating well. PLAN 05/29 started sertraline 25mg po daily 05/30 will schedule low dose of olanzapine 2.5mg po BID for combative behaviors mostly in evening. will check LFT on 05/31. 05/31 continue tx. pending urine culture. 06/01 restless at night. during the day calmer, tremolous, sensitive to effect on antipsychotic. urine culture positive for gram johanna amy- started on bactrim DS- monitor LFTs. 06/02 continue tx. cmp ordered today to monitor LFTs. Reason for continued inpatient stay Substantial Risk for: inability to function Time Spent With Patient Time: Total time managing care of this patient today ____ minutes.
[2024-06-02 09:18] LABS: Alanine Aminotransferase 139 U/L (0-31); Albumin Level 3.3 g/dL (3.5-5.0); Alkaline Phosphatase 153 U/L (39-117); Anion Gap 11 (12-20); Aspartate Amino Transferase 51 U/L (5-31); Bilirubin Total 0.8 mg/dL (0.0-1.0); Blood Urea Nitrogen 11 mg/dL (9-16); Calcium 9.6 mg/dL (8.4-10.2); Carbon Dioxide 25 mmol/L (22-29); Chloride 110 mmol/L (96-108); Creatinine Clr Calc Pharmacy 57.2; Estimated Glomerular Filt Rate > 60; Glucose Random 147 mg/dL (60-115); Potassium 3.5 mmol/L (3.3-5.1); Sodium 142 mmol/L (135-145); Total Protein 5.9 g/dL (6.5-8.0)
[2024-06-02 10:17] VITALS: BMI 20.5
[2024-06-02 20:00] VITALS: BP 140/63; PULSE 64; RESP 15; TEMP 36.5; O2SAT 95
[2024-06-03 08:00] VITALS: BP 153/67; PULSE 55; RESP 18; TEMP 36.3; O2SAT 98
[2024-06-03] MEDS: Sertraline HCL 50 MG TABLET PO (08:12)
[2024-06-03] MEDS: Sulfamethox/Trimeth 800/160 TABLET 1 TAB PO ×2 (08:12→21:08)
[2024-06-03] MEDS: Aspirin Enteric Coated 81 MG TABLET.DR PO (08:13)
--- NOTE | 2024-06-03 10:06 | P.PNPSI_ITS ---
Subjective Subjective Date of Service: 06/03/24 Reason For Visit: Combative Behavior Subjective Notes: Conditional Voluntary Interim History: Pt slept through the night. She presents as calmer, less tearful and less anxious. She is sleeping better, on bactrim for UTI. LFTs trending down. She is taking medications as prescribed. Diagnostics Vital Signs (24Hr): Vital Signs - 24 hr 06/02/24 20:00 06/03/24 08:00 Temperature 97.7 F 97.3 F Pulse Rate 64 55 Respiratory Rate 15 18 Blood Pressure 140/63 H 153/67 H Pulse Oximetry 95 98 Oxygen Delivery Method Room Air Room Air BMI result Body Mass Index 20.5 Labs 06/02/24 08:53 Labs: Laboratory Results - last 48 hr 06/02/24 08:53 Sodium 142 Potassium 3.5 Chloride 110 H Carbon Dioxide 25 Anion Gap 11 L BUN 11 Creatinine 0.67 Estim Creat Clear Calc 57.2 Estimated GFR > 60 Random Glucose 147 H Calcium 9.6 Total Bilirubin 0.8 AST 51 H ALT 139 H Alkaline Phosphatase 153 H Total Protein 5.9 L Albumin 3.3 L Medications Medications Current Medications Acetaminophen (Acetaminophen 325 Mg Tablet) 650 mg PO Q6H PRN PRN Reason: Headache/Pain, Scale 1-10 Al Hydroxide/Mg Hydroxide (Magnesium Hydrox/Alum Hydrox 30 Ml Oral.Susp) 30 ml PO Q6H PRN PRN Reason: Heartburn/Nausea Aspirin (Aspirin Enteric Coated 81 Mg Tablet.Dr) 81 mg PO DAILY [facility] Last Admin: 06/03/24 08:13 Dose: 81 mg Lorazepam (Lorazepam 0.5 Mg Tablet) 0.5 mg PO DAILY PRN PRN Reason: agitation Last Admin: 06/01/24 04:00 Dose: 0.5 mg Magnesium Hydroxide (Milk Of Magnesia 30 Ml Oral.Susp) 30 ml PO DAILY PRN PRN Reason: Constipation Olanzapine (Olanzapine 2.5 Mg Tablet) 2.5 mg PO DAILY@1600 [facility] Last Admin: 06/02/24 17:27 Dose: Not Given Sertraline HCl (Sertraline Hcl 50 Mg Tablet) 50 mg PO DAILY [facility] Last Admin: 06/03/24 08:12 Dose: 50 mg Trazodone HCl (Trazodone Hcl 50 Mg Tablet) 50 mg PO BEDTIME PRN PRN Reason: Insomnia Last Admin: 05/29/24 21:55 Dose: 50 mg Trimethoprim/Sulfamethoxazole (Sulfamethox/Trimeth 800/160 Tablet) 1 tab PO BID [facility] Stop: 06/08/24 09:01 Last Admin: 06/03/24 08:12 Dose: 1 tab Allergies Allergies Allergy/AdvReac Type Severity Reaction Status Date / Time ciprofloxacin Allergy Unknown Verified 05/18/24 09:00 codeine Allergy Unknown Verified 05/18/24 09:00 haloperidol [From Haldol] Allergy Unknown Verified 05/18/24 09:00 oxycodone Allergy Unknown Verified 05/18/24 09:00 risedronate sodium Allergy Unknown Verified 05/18/24 09:00 [From Actonel] tetracycline Allergy Unknown Verified 05/18/24 09:00 trazodone Allergy Unknown Verified 05/18/24 09:00 macrobid AdvReac Severe transaminit Uncoded 05/31/24 14:01 is Assessment & Plan Assessment & Plan (1) Major neurocognitive disorder: Status: Acute Code(s): F03.90 - Unspecified dementia, unspecified severity, without behavioral disturbance, psychotic disturbance, mood disturbance, and anxiety Plan Mrs. Dennison is a 78 year-old woman with hx of dementia, advanced at this time who initially was brought via EMS from [facility] due to combative behaviors s/s to dementia. She was admitted to [facility] and transfer to medical floor due to transaminitis which seem to be related to medications or atypical viral infection although hep panel was negative. LFT are tending down. Will hold for now starting new medication. Pt presents as more alert, and able to walk. She is eating well. PLAN 05/29 started sertraline 25mg po daily 05/30 will schedule low dose of olanzapine 2.5mg po BID for combative behaviors mostly in evening. will check LFT on 05/31. 05/31 continue tx. pending urine culture. 06/01 restless at night. during the day calmer, tremolous, sensitive to effect on antipsychotic. urine culture positive for gram johanna amy- started on bactrim DS- monitor LFTs. 06/02 continue tx. cmp ordered today to monitor LFTs. 06/03 continue tx. started propanolol 5mg po daily for tremors. monitor BP/ HR with addition of propanolol and effectiveness. Reason for continued inpatient stay Substantial Risk for: inability to function Time Spent With Patient Time: Total time managing care of this patient today ____ minutes.
[2024-06-03 12:06] VITALS: BP 130/60; PULSE 67
[2024-06-03] MEDS: Propranolol HCL 10 MG TABLET 5 MG PO (12:06)
--- NOTE | 2024-06-03 13:44 | MHC.CLN ---
F/U DIET=REGULAR, CHOPPED. ENSURE TID TO PROMOTE NUTRITIONAL INTAKE. SUPPLEMENT PROVIDES 1050 KCALS, 60 G PROTEIN. CONTINUES WITH VARIABLE PO INTAKE, 0-100%. ENCOURAGE INTAKE AT MEALS AND SNACKS ABLE. RD TO MONITOR WEEKLY.
[2024-06-03] MEDS: OLANZapine 2.5 MG TABLET PO (16:11)
[2024-06-03 20:00] VITALS: BP 167/67; PULSE 56; RESP 17; TEMP 36.4; O2SAT 95
[2024-06-04] MEDS: LORazepam 0.5 MG TABLET PO ×2 (01:51→17:32)
[2024-06-04 08:00] VITALS: BP 118/59; PULSE 62; RESP 16; TEMP 36.4
[2024-06-04] MEDS: Aspirin Enteric Coated 81 MG TABLET.DR PO (08:52)
[2024-06-04] MEDS: Sulfamethox/Trimeth 800/160 TABLET 1 TAB PO ×2 (08:52→20:34)
[2024-06-04] MEDS: Sertraline HCL 50 MG TABLET PO (08:52)
[2024-06-04] MEDS: Propranolol HCL 10 MG TABLET 5 MG PO (10:23)
--- NOTE | 2024-06-04 13:40 | HO.PSYCHPN ---
Subjective Subjective Date of Service: 06/04/24 Reason For Visit: Combative Behavior Interim History: Patient seen. She has been more confused, anxious and restless today. Per RN, ativan has been helpful when she took it last night. She denies SI/HI. Review of Systems Review of Systems Yes Unobtainable due to mental status Mental Status Exam Mental Status Exam Narrative: Appearance: casually groomed, thin, good hygiene, in NAD Behavior: calmer Psychomotor: no agitation or retardation noted Speech: mumbles at times, regular rate, spontaneous TP: aphasia TC: thanking this insurance writer for coming to see her. Mood: good Affect: smiles, thinks she knows this insurance writer VH/AH: no signs Delusions: confabulation Insight/judgment: impaired x 2. memory/cog: alert, not oriented to place, month or year nor situation. severe cognitive impairments. Diagnostics Vital Signs (24Hr): Vital Signs - 24 hr 06/03/24 20:00 06/04/24 08:00 Temperature 97.5 F 97.5 F Pulse Rate 56 62 Respiratory Rate 17 16 Blood Pressure 167/67 H 118/59 L Pulse Oximetry 95 Oxygen Delivery Method Room Air BMI result Body Mass Index 20.5 Labs 06/02/24 08:53 Medications Medications Current Medications Acetaminophen (Acetaminophen 325 Mg Tablet) 650 mg PO Q6H PRN PRN Reason: Headache/Pain, Scale 1-10 Al Hydroxide/Mg Hydroxide (Magnesium Hydrox/Alum Hydrox 30 Ml Oral.Susp) 30 ml PO Q6H PRN PRN Reason: Heartburn/Nausea Aspirin (Aspirin Enteric Coated 81 Mg Tablet.) 81 mg PO DAILY [facility] Last Admin: 06/04/24 08:52 Dose: 81 mg Lorazepam (Lorazepam 0.5 Mg Tablet) 0.5 mg PO BID PRN PRN Reason: agitation/sleep Magnesium Hydroxide (Milk Of Magnesia 30 Ml Oral.Susp) 30 ml PO DAILY PRN PRN Reason: Constipation Olanzapine (Olanzapine 2.5 Mg Tablet) 2.5 mg PO DAILY@1600 [facility] Last Admin: 06/03/24 16:11 Dose: 2.5 mg Propranolol HCl (Propranolol Hcl 10 Mg Tablet) 5 mg PO DAILY [facility]; Protocol Last Admin: 06/04/24 10:23 Dose: 5 mg Sertraline HCl (Sertraline Hcl 50 Mg Tablet) 50 mg PO DAILY [facility] Last Admin: 06/04/24 08:52 Dose: 50 mg Trimethoprim/Sulfamethoxazole (Sulfamethox/Trimeth 800/160 Tablet) 1 tab PO BID [facility] Stop: 06/08/24 09:01 Last Admin: 06/04/24 08:52 Dose: 1 tab Allergies Allergies Allergy/AdvReac Type Severity Reaction Status Date / Time ciprofloxacin Allergy Unknown Verified 05/18/24 09:00 codeine Allergy Unknown Verified 05/18/24 09:00 haloperidol [From Haldol] Allergy Unknown Verified 05/18/24 09:00 oxycodone Allergy Unknown Verified 05/18/24 09:00 risedronate sodium Allergy Unknown Verified 05/18/24 09:00 [From Actonel] tetracycline Allergy Unknown Verified 05/18/24 09:00 trazodone Allergy Unknown Verified 05/18/24 09:00 macrobid AdvReac Severe transaminit Uncoded 05/31/24 14:01 is Assessment & Plan Assessment & Plan (1) Major neurocognitive disorder: Status: Acute Code(s): F03.90 - Unspecified dementia, unspecified severity, without behavioral disturbance, psychotic disturbance, mood disturbance, and anxiety Plan Mrs. Dennison is a 78 year-old woman with hx of dementia, advanced at this time who initially was brought via EMS from [facility] due to combative behaviors s/s to dementia. She was admitted to [facility] and transfer to medical floor due to transaminitis which seem to be related to medications or atypical viral infection although hep panel was negative. LFT are tending down. Will hold for now starting new medication. Pt presents as more alert, and able to walk. She is eating well. PLAN 05/29 started sertraline 25mg po daily 05/30 will schedule low dose of olanzapine 2.5mg po BID for combative behaviors mostly in evening. will check LFT on 05/31. 05/31 continue tx. pending urine culture. 06/01 restless at night. during the day calmer, tremolous, sensitive to effect on antipsychotic. urine culture positive for gram johanna amy- started on bactrim DS- monitor LFTs. 06/02 continue tx. cmp ordered today to monitor LFTs. 06/03 continue tx. started propanolol 5mg po daily for tremors. monitor BP/ HR with addition of propanolol and effectiveness. 06/04: Ativan 0.5 mg BID PRN rather than QD PRN. Reason for continued inpatient stay Substantial Risk for: inability to function and rapid decompensation Time Spent With Patient Time: Total time managing care of this patient today ____ minutes.
[2024-06-04] MEDS: OLANZapine 2.5 MG TABLET PO (15:49)
--- NOTE | 2024-06-04 17:26 | PC.NURSE ---
Had a visit with her daughter which went well. after receiving her Zyprexa she seemed to be more anxious attempted to administer a dose of Ativan without success, will attempt again later
[2024-06-04 20:00] VITALS: BP 112/50; PULSE 52; RESP 16; TEMP 36.5; O2SAT 97
[2024-06-05 08:00] VITALS: BP 108/56; PULSE 67; RESP 16; TEMP 36.9; O2SAT 97
[2024-06-05] MEDS: Sulfamethox/Trimeth 800/160 TABLET 1 TAB PO ×2 (08:45→20:02)
[2024-06-05] MEDS: Aspirin Enteric Coated 81 MG TABLET.DR PO (08:45)
[2024-06-05] MEDS: Propranolol HCL 10 MG TABLET 5 MG PO (08:45)
[2024-06-05] MEDS: Sertraline HCL 50 MG TABLET PO (08:46)
--- NOTE | 2024-06-05 14:24 | HO.PSYCHPN ---
Subjective Subjective Date of Service: 06/05/24 Reason For Visit: Combative Behavior Interim History: Patient seen. Less confused and less restless than yesterday. Remains on 1:1. Flat affect with an edge. Denies symptoms. She denies SI/HI. Review of Systems Review of Systems Yes Unobtainable due to mental status Mental Status Exam Mental Status Exam Narrative: Appearance: casually groomed, thin, good hygiene, in NAD Behavior: calmer Psychomotor: no agitation or retardation noted Speech: mumbles at times, regular rate, spontaneous TP: aphasia TC: thanking this hand sign writer for coming to see her. Mood: good Affect: smiles, thinks she knows this hand sign writer VH/AH: no signs Delusions: confabulation Insight/judgment: impaired x 2. memory/cog: alert, not oriented to place, month or year nor situation. severe cognitive impairments. Diagnostics Vital Signs (24Hr): Vital Signs - 24 hr 06/04/24 20:00 06/05/24 08:00 Temperature 97.7 F 98.4 F Pulse Rate 52 67 Respiratory Rate 16 16 Blood Pressure 112/50 L 108/56 L Pulse Oximetry 97 97 Oxygen Delivery Method Room Air Room Air BMI result Body Mass Index 20.5 Labs 06/02/24 08:53 Medications Medications Current Medications Acetaminophen (Acetaminophen 325 Mg Tablet) 650 mg PO Q6H PRN PRN Reason: Headache/Pain, Scale 1-10 Al Hydroxide/Mg Hydroxide (Magnesium Hydrox/Alum Hydrox 30 Ml Oral.Susp) 30 ml PO Q6H PRN PRN Reason: Heartburn/Nausea Aspirin (Aspirin Enteric Coated 81 Mg Tablet.) 81 mg PO DAILY [facility] Last Admin: 06/05/24 08:45 Dose: 81 mg Lorazepam (Lorazepam 0.5 Mg Tablet) 0.5 mg PO BID PRN PRN Reason: agitation/sleep Last Admin: 06/04/24 17:32 Dose: 0.5 mg Magnesium Hydroxide (Milk Of Magnesia 30 Ml Oral.Susp) 30 ml PO DAILY PRN PRN Reason: Constipation Olanzapine (Olanzapine 2.5 Mg Tablet) 2.5 mg PO DAILY@1600 [facility] Last Admin: 06/04/24 15:49 Dose: 2.5 mg Propranolol HCl (Propranolol Hcl 10 Mg Tablet) 5 mg PO DAILY [facility]; Protocol Last Admin: 06/05/24 08:45 Dose: 5 mg Sertraline HCl (Sertraline Hcl 50 Mg Tablet) 50 mg PO DAILY [facility] Last Admin: 06/05/24 08:46 Dose: 50 mg Trimethoprim/Sulfamethoxazole (Sulfamethox/Trimeth 800/160 Tablet) 1 tab PO BID [facility] Stop: 06/08/24 09:01 Last Admin: 06/05/24 08:45 Dose: 1 tab Allergies Allergies Allergy/AdvReac Type Severity Reaction Status Date / Time ciprofloxacin Allergy Unknown Verified 05/18/24 09:00 codeine Allergy Unknown Verified 05/18/24 09:00 haloperidol [From Haldol] Allergy Unknown Verified 05/18/24 09:00 oxycodone Allergy Unknown Verified 05/18/24 09:00 risedronate sodium Allergy Unknown Verified 05/18/24 09:00 [From Actonel] tetracycline Allergy Unknown Verified 05/18/24 09:00 trazodone Allergy Unknown Verified 05/18/24 09:00 macrobid AdvReac Severe transaminit Uncoded 05/31/24 14:01 is Assessment & Plan Assessment & Plan (1) Major neurocognitive disorder: Status: Acute Code(s): F03.90 - Unspecified dementia, unspecified severity, without behavioral disturbance, psychotic disturbance, mood disturbance, and anxiety Plan Mrs. Dennison is a 78 year-old woman with hx of dementia, advanced at this time who initially was brought via EMS from [facility] due to combative behaviors s/s to dementia. She was admitted to [facility] and transfer to medical floor due to transaminitis which seem to be related to medications or atypical viral infection although hep panel was negative. LFT are tending down. Will hold for now starting new medication. Pt presents as more alert, and able to walk. She is eating well. PLAN 05/29 started sertraline 25mg po daily 05/30 will schedule low dose of olanzapine 2.5mg po BID for combative behaviors mostly in evening. will check LFT on 05/31. 05/31 continue tx. pending urine culture. 06/01 restless at night. during the day calmer, tremolous, sensitive to effect on antipsychotic. urine culture positive for gram johanna amy- started on bactrim DS- monitor LFTs. 06/02 continue tx. cmp ordered today to monitor LFTs. 06/03 continue tx. started propanolol 5mg po daily for tremors. monitor BP/ HR with addition of propanolol and effectiveness. 06/04: Ativan 0.5 mg BID PRN rather than QD PRN. 06/05: continue current management and treatment plan. Reason for continued inpatient stay Substantial Risk for: inability to function, rapid decompensation and med/psych decompensation Time Spent With Patient Time: Total time managing care of this patient today ____ minutes.
[2024-06-05] MEDS: LORazepam 0.5 MG TABLET PO (15:04)
[2024-06-05] MEDS: OLANZapine 2.5 MG TABLET PO (15:04)
--- NOTE | 2024-06-05 15:44 | PC.NURSE ---
Had a very calmuneventful day the at 3pm she was extremely anxious and slightly agitated given a prn Ativan with her zyprexa. She was telling me there were things trying to kill her and hurt her.
[2024-06-05 20:00] VITALS: RESP 18; TEMP 36.3
[2024-06-06 08:00] VITALS: BP 98/53; PULSE 60; RESP 18; TEMP 36.5; O2SAT 98
[2024-06-06] MEDS: Sertraline HCL 50 MG TABLET PO (08:08)
[2024-06-06] MEDS: Aspirin Enteric Coated 81 MG TABLET.DR PO (08:08)
[2024-06-06] MEDS: Sulfamethox/Trimeth 800/160 TABLET 1 TAB PO ×2 (08:08→19:40)
[2024-06-06 09:40] VITALS: BP 98/53; PULSE 60
[2024-06-06] MEDS: OLANZapine 2.5 MG TABLET PO (15:09)
[2024-06-06 15:35] LABS: Alanine Aminotransferase 81 U/L (0-31); Albumin Level 4.3 g/dL (3.5-5.0); Anion Gap 14 (12-20); Aspartate Amino Transferase 38 U/L (5-31); Bilirubin Total 0.6 mg/dL (0.0-1.0); Blood Urea Nitrogen 20 mg/dL (9-16); Calcium 10.5 mg/dL (8.4-10.2); Carbon Dioxide 24 mmol/L (22-29); Chloride 106 mmol/L (96-108); Creatinine Clr Calc Pharmacy 39.1; Estimated Glomerular Filt Rate 55; Glucose Random 113 mg/dL (60-115); Potassium 5.1 mmol/L (3.3-5.1); Sodium 139 mmol/L (135-145); Total Protein 7.4 g/dL (6.5-8.0)
[2024-06-06 15:37] LABS: Alkaline Phosphatase 133 U/L (39-117)
--- NOTE | 2024-06-06 15:57 | HO.PSYCHPN ---
Subjective Subjective Date of Service: 06/06/24 Reason For Visit: Combative Behavior Subjective Notes: Conditional Voluntary Interim History: Pt sleeping through the night. She presents as pleasant, tearful at some point during conversation. Her speech with expressive and receptive aphasia. No behavioral concerns. propanolol, held this AM due to low BP. less tremulous. Review of Systems Review of Systems Yes Unobtainable due to mental status Mental Status Exam Mental Status Exam Narrative: Appearance: casually groomed, thin, good hygiene, in NAD Behavior: calmer Psychomotor: no agitation or retardation noted Speech: mumbles at times, regular rate, spontaneous TP: aphasia TC: thanking this marketing underwriter for coming to see her. Mood: good Affect: smiles, thinks she knows this marketing underwriter VH/AH: no signs Delusions: confabulation Insight/judgment: impaired x 2. memory/cog: alert, not oriented to place, month or year nor situation. severe cognitive impairments. Diagnostics Vital Signs (24Hr): Vital Signs - 24 hr 06/05/24 20:00 06/06/24 08:00 06/06/24 09:40 Temperature 97.4 F 97.7 F Pulse Rate 60 60 Respiratory Rate 18 18 Blood Pressure 98/53 L 98/53 L Pulse Oximetry 98 Oxygen Delivery Method Room Air BMI result Body Mass Index 20.5 Labs 06/06/24 15:07 Labs: Laboratory Results - last 48 hr 06/06/24 15:07 Sodium 139 Potassium 5.1 D Chloride 106 Carbon Dioxide 24 Anion Gap 14 BUN 20 H Creatinine 0.98 Estim Creat Clear Calc 39.1 Estimated GFR 55 Random Glucose 113 Calcium 10.5 H D Total Bilirubin 0.6 AST 38 H ALT 81 H Alkaline Phosphatase 133 H Total Protein 7.4 Albumin 4.3 Medications Medications Current Medications Acetaminophen (Acetaminophen 325 Mg Tablet) 650 mg PO Q6H PRN PRN Reason: Headache/Pain, Scale 1-10 Al Hydroxide/Mg Hydroxide (Magnesium Hydrox/Alum Hydrox 30 Ml Oral.Susp) 30 ml PO Q6H PRN PRN Reason: Heartburn/Nausea Aspirin (Aspirin Enteric Coated 81 Mg Tablet.) 81 mg PO DAILY [facility] Last Admin: 06/06/24 08:08 Dose: 81 mg Lorazepam (Lorazepam 0.5 Mg Tablet) 0.5 mg PO BID PRN PRN Reason: agitation/sleep Last Admin: 06/05/24 15:04 Dose: 0.5 mg Magnesium Hydroxide (Milk Of Magnesia 30 Ml Oral.Susp) 30 ml PO DAILY PRN PRN Reason: Constipation Olanzapine (Olanzapine 2.5 Mg Tablet) 2.5 mg PO DAILY@1600 [facility] Last Admin: 06/06/24 15:09 Dose: 2.5 mg Propranolol HCl (Propranolol Hcl 10 Mg Tablet) 5 mg PO DAILY [facility]; Protocol Last Admin: 06/06/24 09:40 Dose: Not Given Sertraline HCl (Sertraline Hcl 50 Mg Tablet) 50 mg PO DAILY [facility] Last Admin: 06/06/24 08:08 Dose: 50 mg Trimethoprim/Sulfamethoxazole (Sulfamethox/Trimeth 800/160 Tablet) 1 tab PO BID [facility] Stop: 06/08/24 09:01 Last Admin: 06/06/24 08:08 Dose: 1 tab Allergies Allergies Allergy/AdvReac Type Severity Reaction Status Date / Time ciprofloxacin Allergy Unknown Verified 05/18/24 09:00 codeine Allergy Unknown Verified 05/18/24 09:00 haloperidol [From Haldol] Allergy Unknown Verified 05/18/24 09:00 oxycodone Allergy Unknown Verified 05/18/24 09:00 risedronate sodium Allergy Unknown Verified 05/18/24 09:00 [From Actonel] tetracycline Allergy Unknown Verified 05/18/24 09:00 trazodone Allergy Unknown Verified 05/18/24 09:00 macrobid AdvReac Severe transaminit Uncoded 05/31/24 14:01 is Assessment & Plan Assessment & Plan (1) Major neurocognitive disorder: Status: Acute Code(s): F03.90 - Unspecified dementia, unspecified severity, without behavioral disturbance, psychotic disturbance, mood disturbance, and anxiety Plan Mrs. Dennison is a 78 year-old woman with hx of dementia, advanced at this time who initially was brought via EMS from [facility] due to combative behaviors s/s to dementia. She was admitted [facility] and transfer to medical floor due to transaminitis which seem to be related to medications or atypical viral infection although hep panel was negative. LFT are tending down. Will hold for now starting new medication. Pt presents as more alert, and able to walk. She is eating well. PLAN 05/29 started sertraline 25mg po daily 05/30 will schedule low dose of olanzapine 2.5mg po BID for combative behaviors mostly in evening. will check LFT on 05/31. 05/31 continue tx. pending urine culture. 06/01 restless at night. during the day calmer, tremolous, sensitive to effect on antipsychotic. urine culture positive for gram johanna amy- started on bactrim DS- monitor LFTs. 06/02 continue tx. cmp ordered today to monitor LFTs. 06/03 continue tx. started propanolol 5mg po daily for tremors. monitor BP/ HR with addition of propanolol and effectiveness. 06/04: Ativan 0.5 mg BID PRN rather than QD PRN. 06/05: continue current management and treatment plan. 06/06 continue tx. propanolol was held due to low BP. Reason for continued inpatient stay Substantial Risk for: inability to function Time Spent With Patient Time: Total time managing care of this patient today ____ minutes.
[2024-06-06] MEDS: LORazepam 0.5 MG TABLET PO (19:38)
[2024-06-06 20:00] VITALS: BP 106/59; PULSE 61; RESP 16; TEMP 36.6; O2SAT 98
[2024-06-07 08:57] VITALS: BP 125/57; PULSE 67; RESP 16; TEMP 36.4; O2SAT 97
[2024-06-07] MEDS: Propranolol HCL 10 MG TABLET 5 MG PO (08:58)
[2024-06-07] MEDS: Aspirin Enteric Coated 81 MG TABLET.DR PO (08:58)
[2024-06-07] MEDS: Sulfamethox/Trimeth 800/160 TABLET 1 TAB PO ×2 (08:59→20:07)
[2024-06-07] MEDS: Sertraline HCL 50 MG TABLET PO (08:59)
[2024-06-07] MEDS: OLANZapine 2.5 MG TABLET PO (15:19)
[2024-06-07 20:00] VITALS: BP 126/60; PULSE 50; RESP 16; TEMP 36.4; O2SAT 96
[2024-06-08 09:04] VITALS: BP 96/46; PULSE 54; RESP 15; TEMP 36.9; O2SAT 97
[2024-06-08] MEDS: Aspirin Enteric Coated 81 MG TABLET.DR PO (09:07)
[2024-06-08] MEDS: Sertraline HCL 50 MG TABLET PO (09:08)
[2024-06-08] MEDS: Sulfamethox/Trimeth 800/160 TABLET 1 TAB PO (09:08)
[2024-06-08 11:32] VITALS: BP 135/61
--- NOTE | 2024-06-08 12:32 | HO.PSYCHPN ---
Subjective Subjective Date of Service: 06/08/24 Reason For Visit: Combative Behavior Subjective Notes: Conditional Voluntary Healthcare Proxy: Yes Interim History: Pt sleeping through the night. She is pleasant on approach. She has been eating well. She showed this morning, had breakfast, went back to bed. She denies any pain. severe expressive aphasia. No behavioral concerns. may change propanolol for later in day. Review of Systems Review of Systems Yes Unobtainable due to mental status Mental Status Exam Mental Status Exam Narrative: Appearance: casually groomed, thin, good hygiene, in NAD Behavior: calmer Psychomotor: no agitation or retardation noted Speech: mumbles at times, regular rate, spontaneous TP: aphasia TC: thanking this senior writer for coming to see her. Mood: good Affect: smiles, thinks she knows this senior writer VH/AH: no signs Delusions: confabulation Insight/judgment: impaired x 2. memory/cog: alert, not oriented to place, month or year nor situation. severe cognitive impairments. Diagnostics Vital Signs (24Hr): Vital Signs - 24 hr 06/07/24 20:00 06/08/24 09:04 06/08/24 11:32 Temperature 97.6 F 98.4 F Pulse Rate 50 54 Respiratory Rate 16 15 Blood Pressure 126/60 96/46 L 135/61 Pulse Oximetry 96 97 Oxygen Delivery Method Room Air Room Air BMI result Body Mass Index 20.5 Labs 06/06/24 15:07 Labs: Laboratory Results - last 48 hr 06/06/24 15:07 Sodium 139 Potassium 5.1 D Chloride 106 Carbon Dioxide 24 Anion Gap 14 BUN 20 H Creatinine 0.98 Estim Creat Clear Calc 39.1 Estimated GFR 55 Random Glucose 113 Calcium 10.5 H D Total Bilirubin 0.6 AST 38 H ALT 81 H Alkaline Phosphatase 133 H Total Protein 7.4 Albumin 4.3 Medications Medications Current Medications Acetaminophen (Acetaminophen 325 Mg Tablet) 650 mg PO Q6H PRN PRN Reason: Headache/Pain, Scale 1-10 Al Hydroxide/Mg Hydroxide (Magnesium Hydrox/Alum Hydrox 30 Ml Oral.Susp) 30 ml PO Q6H PRN PRN Reason: Heartburn/Nausea Aspirin (Aspirin Enteric Coated 81 Mg Tablet.) 81 mg PO DAILY [facility] Last Admin: 06/08/24 09:07 Dose: 81 mg Lorazepam (Lorazepam 0.5 Mg Tablet) 0.5 mg PO BID PRN PRN Reason: agitation/sleep Last Admin: 06/06/24 19:38 Dose: 0.5 mg Magnesium Hydroxide (Milk Of Magnesia 30 Ml Oral.Susp) 30 ml PO DAILY PRN PRN Reason: Constipation Olanzapine (Olanzapine 2.5 Mg Tablet) 2.5 mg PO DAILY@1600 [facility] Last Admin: 06/07/24 15:19 Dose: 2.5 mg Propranolol HCl (Propranolol Hcl 10 Mg Tablet) 5 mg PO DAILY [facility]; Protocol Last Admin: 06/08/24 09:09 Dose: Not Given Sertraline HCl (Sertraline Hcl 50 Mg Tablet) 50 mg PO DAILY [facility] Last Admin: 06/08/24 09:08 Dose: 50 mg Allergies Allergies Allergy/AdvReac Type Severity Reaction Status Date / Time ciprofloxacin Allergy Unknown Verified 05/18/24 09:00 codeine Allergy Unknown Verified 05/18/24 09:00 haloperidol [From Haldol] Allergy Unknown Verified 05/18/24 09:00 oxycodone Allergy Unknown Verified 05/18/24 09:00 risedronate sodium Allergy Unknown Verified 05/18/24 09:00 [From Actonel] tetracycline Allergy Unknown Verified 05/18/24 09:00 trazodone Allergy Unknown Verified 05/18/24 09:00 macrobid AdvReac Severe transaminit Uncoded 05/31/24 14:01 is Assessment & Plan Assessment & Plan (1) Major neurocognitive disorder: Status: Acute Code(s): F03.90 - Unspecified dementia, unspecified severity, without behavioral disturbance, psychotic disturbance, mood disturbance, and anxiety Plan Mrs. Dennison is a 78 year-old woman with hx of dementia, advanced at this time who initially was brought via EMS from [facility] due to combative behaviors s/s to dementia. She was admitted to [facility] and transfer to medical floor due to transaminitis which seem to be related to medications or atypical viral infection although hep panel was negative. LFT are tending down. Will hold for now starting new medication. Pt presents as more alert, and able to walk. She is eating well. PLAN 05/29 started sertraline 25mg po daily 05/30 will schedule low dose of olanzapine 2.5mg po BID for combative behaviors mostly in evening. will check LFT on 05/31. 05/31 continue tx. pending urine culture. 06/01 restless at night. during the day calmer, tremolous, sensitive to effect on antipsychotic. urine culture positive for gram johanna amy- started on bactrim DS- monitor LFTs. 06/02 continue tx. cmp ordered today to monitor LFTs. 06/03 continue tx. started propanolol 5mg po daily for tremors. monitor BP/ HR with addition of propanolol and effectiveness. 06/04: Ativan 0.5 mg BID PRN rather than QD PRN. 06/05: continue current management and treatment plan. 06/06 continue tx. propanolol was held due to low BP. 06/08 will change propanolol for night or midday Reason for continued inpatient stay Substantial Risk for: inability to function Time Spent With Patient Time: Total time managing care of this patient today ____ minutes.
[2024-06-08] MEDS: OLANZapine 2.5 MG TABLET PO (15:17)
[2024-06-08] MEDS: LORazepam 0.5 MG TABLET PO (18:00)
[2024-06-08 20:00] VITALS: BP 107/54; PULSE 55; RESP 18; TEMP 36.6; O2SAT 97
[2024-06-08 20:18] VITALS: BP 107/54; PULSE 55
[2024-06-09 08:00] VITALS: BP 100/46; PULSE 59; RESP 16; TEMP 36; O2SAT 99
--- NOTE | 2024-06-09 08:40 | P.PNPSI_ITS ---
Subjective Subjective Date of Service: 06/09/24 Reason For Visit: Combative Behavior Interim History: Pt sleeping through the night. She is pleasant on approach. She has been eating well. She showed this morning, had breakfast, went back to bed. She denies any pain. severe expressive aphasia. No behavioral concerns. may change propanolol for later in day. Review of Systems Review of Systems Yes Unobtainable due to mental status Mental Status Exam Mental Status Exam Narrative: Appearance: casually groomed, thin, good hygiene, in NAD Behavior: calmer Psychomotor: no agitation or retardation noted Speech: mumbles at times, regular rate, spontaneous TP: aphasia TC: thanking this financial underwriter for coming to see her. Mood: good Affect: smiles, thinks she knows this financial underwriter VH/AH: no signs Delusions: confabulation Insight/judgment: impaired x 2. memory/cog: alert, not oriented to place, month or year nor situation. severe cognitive impairments. Diagnostics Vital Signs (24Hr): Vital Signs - 24 hr 06/08/24 09:04 06/08/24 11:32 06/08/24 20:00 Temperature 98.4 F 97.9 F Pulse Rate 54 55 Respiratory Rate 15 18 Blood Pressure 96/46 L 135/61 107/54 L Pulse Oximetry 97 97 Oxygen Delivery Method Room Air Room Air 06/08/24 20:18 Temperature Pulse Rate 55 Respiratory Rate Blood Pressure 107/54 L Pulse Oximetry Oxygen Delivery Method BMI result Body Mass Index 20.5 Labs 06/06/24 15:07 Medications Medications Current Medications Acetaminophen (Acetaminophen 325 Mg Tablet) 650 mg PO Q6H PRN PRN Reason: Headache/Pain, Scale 1-10 Al Hydroxide/Mg Hydroxide (Magnesium Hydrox/Alum Hydrox 30 Ml Oral.Susp) 30 ml PO Q6H PRN PRN Reason: Heartburn/Nausea Aspirin (Aspirin Enteric Coated 81 Mg Tablet.Dr) 81 mg PO DAILY [facility] Last Admin: 06/08/24 09:07 Dose: 81 mg Lorazepam (Lorazepam 0.5 Mg Tablet) 0.5 mg PO BID PRN PRN Reason: agitation/sleep Last Admin: 06/08/24 18:00 Dose: 0.5 mg Magnesium Hydroxide (Milk Of Magnesia 30 Ml Oral.Susp) 30 ml PO DAILY PRN PRN Reason: Constipation Olanzapine (Olanzapine 2.5 Mg Tablet) 2.5 mg PO DAILY@1600 [facility] Last Admin: 06/08/24 15:17 Dose: 2.5 mg Propranolol HCl (Propranolol Hcl 10 Mg Tablet) 5 mg PO BEDTIME [facility]; Protocol Last Admin: 06/08/24 20:18 Dose: Not Given Sertraline HCl (Sertraline Hcl 50 Mg Tablet) 50 mg PO DAILY [facility] Last Admin: 06/08/24 09:08 Dose: 50 mg Allergies Allergies Allergy/AdvReac Type Severity Reaction Status Date / Time ciprofloxacin Allergy Unknown Verified 05/18/24 09:00 codeine Allergy Unknown Verified 05/18/24 09:00 haloperidol [From Haldol] Allergy Unknown Verified 05/18/24 09:00 oxycodone Allergy Unknown Verified 05/18/24 09:00 risedronate sodium Allergy Unknown Verified 05/18/24 09:00 [From Actonel] tetracycline Allergy Unknown Verified 05/18/24 09:00 trazodone Allergy Unknown Verified 05/18/24 09:00 macrobid AdvReac Severe transaminit Uncoded 05/31/24 14:01 is Assessment & Plan Assessment & Plan (1) Major neurocognitive disorder: Status: Acute Code(s): F03.90 - Unspecified dementia, unspecified severity, without behavioral disturbance, psychotic disturbance, mood disturbance, and anxiety Plan Mrs. Dennison is a 78 year-old woman with hx of dementia, advanced at this time who initially was brought via EMS from [facility] due to combative behaviors s/s to dementia. She was admitted [facility] and transfer to medical floor due to transaminitis which seem to be related to medications or atypical viral infection although hep panel was negative. LFT are tending down. Will hold for now starting new medication. Pt presents as more alert, and able to walk. She is eating well. PLAN 05/29 started sertraline 25mg po daily 05/30 will schedule low dose of olanzapine 2.5mg po BID for combative behaviors mostly in evening. will check LFT on 05/31. 05/31 continue tx. pending urine culture. 06/01 restless at night. during the day calmer, tremolous, sensitive to effect on antipsychotic. urine culture positive for gram johanna amy- started on bactrim DS- monitor LFTs. 06/02 continue tx. cmp ordered today to monitor LFTs. 06/03 continue tx. started propanolol 5mg po daily for tremors. monitor BP/ HR with addition of propanolol and effectiveness. 06/04: Ativan 0.5 mg BID PRN rather than QD PRN. 06/05: continue current management and treatment plan. 06/06 continue tx. propanolol was held due to low BP. 06/08 will change propanolol for night or midday 06/09 off 1:1 on CO, more steady ambulation. may d/c propanolol as BP runs low. Reason for continued inpatient stay Substantial Risk for: inability to function Time Spent With Patient Time: Total time managing care of this patient today ____ minutes.
[2024-06-09] MEDS: Sertraline HCL 50 MG TABLET PO (08:59)
[2024-06-09] MEDS: Aspirin Enteric Coated 81 MG TABLET.DR PO (08:59)
[2024-06-09 10:52] LABS: Calcium 9.8 mg/dL (8.4-10.2)
[2024-06-09 10:59] LABS: Parathyroid Hormone Intact 69.7 pg/mL (8.7-77.1)
[2024-06-09 11:14] VITALS: BP 126/49; PULSE 65
[2024-06-09 13:53] VITALS: BMI 20.3
[2024-06-09] MEDS: OLANZapine 2.5 MG TABLET PO (16:21)
[2024-06-09 20:00] VITALS: BP 108/50; PULSE 63; RESP 16; TEMP 36.7; O2SAT 97
[2024-06-10 09:00] VITALS: BP 106/53; PULSE 66; RESP 19; TEMP 36.6; O2SAT 98
[2024-06-10] MEDS: Sertraline HCL 50 MG TABLET PO (09:51)
[2024-06-10] MEDS: Aspirin Enteric Coated 81 MG TABLET.DR PO (09:51)
[2024-06-10] MEDS: LORazepam 0.5 MG TABLET PO (10:18)
[2024-06-10 10:20] VITALS: BP 115/56; PULSE 66
[2024-06-10] MEDS: Propranolol HCL 10 MG TABLET 2.5 MG PO (10:20)
--- NOTE | 2024-06-10 13:56 | MHC.CLN ---
F/U DIET=REGULAR, CHOPPED. ENSURE TID TO PROMOTE NUTRITIONAL INTAKE. SUPPLEMENT PROVIDES 1050 KCALS, 60 G PROTEIN. CONTINUES WITH VARIABLE PO INTAKE, WITH MOST MEALS 100%. ENCOURAGE INTAKE AT MEALS AND SNACKS ABLE. RD TO MONITOR WEEKLY.
[2024-06-10] MEDS: OLANZapine 2.5 MG TABLET PO (15:28)
--- NOTE | 2024-06-10 15:57 | P.PNPSI_ITS ---
Subjective Subjective Date of Service: 06/10/24 Reason For Visit: Combative Behavior Subjective Notes: Conditional Voluntary Healthcare Proxy: Yes Interim History: Pt slept through the night. She is on CO, no behavioral concerns. She is taking medications as prescribed. More stable gait. aphasia. not oriented to place, month nor year. Review of Systems Review of Systems Yes Unobtainable due to mental status Mental Status Exam Mental Status Exam Narrative: Appearance: casually groomed, thin, good hygiene, in NAD Behavior: calm, pleasant Psychomotor: no agitation or retardation noted Speech: mumbles at times, regular rate, spontaneous TP: aphasia TC: word salad Mood: good Affect: smiles VH/AH: no signs Delusions: confabulation Insight/judgment: impaired x 2. memory/cog: alert, not oriented to place, month or year nor situation. severe cognitive impairments. Diagnostics Vital Signs (24Hr): Vital Signs - 24 hr 06/09/24 20:00 06/10/24 09:00 06/10/24 10:20 Temperature 98.1 F 97.9 F Pulse Rate 63 66 66 Respiratory Rate 16 19 Blood Pressure 108/50 L 106/53 L 115/56 L Pulse Oximetry 97 98 Oxygen Delivery Method Room Air Room Air BMI result Body Mass Index 20.3 Labs 06/12/24 14:37 Labs: Laboratory Results - last 48 hr 06/09/24 10:19 Hold Purple Top SEE NOTE Calcium 9.8 D 25-OH Vitamin D Total 35.0 PTH Intact 69.7 Medications Medications Current Medications Acetaminophen (Acetaminophen 325 Mg Tablet) 650 mg PO Q6H PRN PRN Reason: Headache/Pain, Scale 1-10 Al Hydroxide/Mg Hydroxide (Magnesium Hydrox/Alum Hydrox 30 Ml Oral.Susp) 30 ml PO Q6H PRN PRN Reason: Heartburn/Nausea Aspirin (Aspirin Enteric Coated 81 Mg Tablet.) 81 mg PO DAILY [facility] Last Admin: 06/10/24 09:51 Dose: 81 mg Lorazepam (Lorazepam 0.5 Mg Tablet) 0.5 mg PO BID PRN PRN Reason: agitation/sleep Last Admin: 06/10/24 10:18 Dose: 0.5 mg Magnesium Hydroxide (Milk Of Magnesia 30 Ml Oral.Susp) 30 ml PO DAILY PRN PRN Reason: Constipation Olanzapine (Olanzapine 2.5 Mg Tablet) 2.5 mg PO DAILY@1600 [facility] Last Admin: 06/10/24 15:28 Dose: 2.5 mg Propranolol HCl (Propranolol Hcl 10 Mg Tablet) 2.5 mg PO DAILY@1100 [facility]; Protocol Last Admin: 06/10/24 10:20 Dose: 2.5 mg Sertraline HCl (Sertraline Hcl 50 Mg Tablet) 50 mg PO DAILY [facility] Last Admin: 06/10/24 09:51 Dose: 50 mg Allergies Allergies Allergy/AdvReac Type Severity Reaction Status Date / Time ciprofloxacin Allergy Unknown Verified 05/18/24 09:00 codeine Allergy Unknown Verified 05/18/24 09:00 haloperidol [From Haldol] Allergy Unknown Verified 05/18/24 09:00 oxycodone Allergy Unknown Verified 05/18/24 09:00 risedronate sodium Allergy Unknown Verified 05/18/24 09:00 [From Actonel] tetracycline Allergy Unknown Verified 05/18/24 09:00 trazodone Allergy Unknown Verified 05/18/24 09:00 macrobid AdvReac Severe transaminit Uncoded 05/31/24 14:01 is Assessment & Plan Assessment & Plan (1) Major neurocognitive disorder: Status: Acute Code(s): F03.90 - Unspecified dementia, unspecified severity, without behavioral disturbance, psychotic disturbance, mood disturbance, and anxiety Plan Mrs. Dennison is a 78 year-old woman with hx of dementia, advanced at this time who initially was brought via EMS from [facility] due to combative behaviors s/s to dementia. She was admitted [facility] and transfer to medical floor due to transaminitis which seem to be related to medications or atypical viral infection although hep panel was negative. LFT are tending down. Will hold for now starting new medication. Pt presents as more alert, and able to walk. She is eating well. PLAN 05/29 started sertraline 25mg po daily 05/30 will schedule low dose of olanzapine 2.5mg po BID for combative behaviors mostly in evening. will check LFT on 05/31. 05/31 continue tx. pending urine culture. 06/01 restless at night. during the day calmer, tremolous, sensitive to effect on antipsychotic. urine culture positive for gram johanna amy- started on bactrim DS- monitor LFTs. 06/02 continue tx. cmp ordered today to monitor LFTs. 06/03 continue tx. started propanolol 5mg po daily for tremors. monitor BP/ HR with addition of propanolol and effectiveness. 06/04: Ativan 0.5 mg BID PRN rather than QD PRN. 06/05: continue current management and treatment plan. 06/06 continue tx. propanolol was held due to low BP. 06/08 will change propanolol for night or midday 06/09 off 1:1 on CO, more steady ambulation. may d/c propanolol as BP runs low. 06/10 continue tx. pt on CO, may be able to transition to 5 minuts check is steady on feet. No combative behaviors. Reason for continued inpatient stay Substantial Risk for: inability to function Time Spent With Patient Time: Total time managing care of this patient today ____ minutes.
[2024-06-10 19:58] VITALS: BP 121/60; PULSE 55; RESP 16; TEMP 36.9; O2SAT 97
[2024-06-11] MEDS: LORazepam 0.5 MG TABLET PO (00:25)
[2024-06-11] MEDS: Acetaminophen 325 MG TABLET 650 MG PO (00:25)
[2024-06-11 08:00] VITALS: BP 112/63; PULSE 67; RESP 16; TEMP 36.4; O2SAT 98
[2024-06-11] MEDS: Aspirin Enteric Coated 81 MG TABLET.DR PO (08:06)
[2024-06-11] MEDS: Sertraline HCL 50 MG TABLET PO (08:06)
[2024-06-11 11:37] VITALS: BP 135/60; PULSE 62
[2024-06-11] MEDS: Propranolol HCL 10 MG TABLET 2.5 MG PO (11:43)
--- NOTE | 2024-06-11 14:44 | P.PNPSI_ITS ---
Subjective Subjective Date of Service: 06/11/24 Reason For Visit: Combative Behavior Interim History: word salad. no discernible complaints. pleasant affect and demeanor. per staff, confused. no change in presentation. Mental Status Exam Mental Status Exam Narrative: Appearance: casually groomed, thin, good hygiene, in NAD Behavior: calm, pleasant Psychomotor: no agitation or retardation noted Speech: mumbles at times, regular rate, spontaneous TP: aphasia TC: word salad Mood: good Affect: smiles VH/AH: no signs Delusions: confabulation Insight/judgment: impaired x 2. memory/cog: alert, not oriented to place, month or year nor situation. severe cognitive impairments. Diagnostics Vital Signs (24Hr): Vital Signs - 24 hr 06/10/24 19:58 06/11/24 08:00 06/11/24 11:37 Temperature 98.4 F 97.5 F Pulse Rate 55 67 62 Respiratory Rate 16 16 Blood Pressure 121/60 112/63 135/60 Pulse Oximetry 97 98 Oxygen Delivery Method Room Air Room Air BMI result Body Mass Index 20.3 Labs 06/06/24 15:07 Medications Medications Current Medications Acetaminophen (Acetaminophen 325 Mg Tablet) 650 mg PO Q6H PRN PRN Reason: Headache/Pain, Scale 1-10 Last Admin: 06/11/24 00:25 Dose: 650 mg Al Hydroxide/Mg Hydroxide (Magnesium Hydrox/Alum Hydrox 30 Ml Oral.Susp) 30 ml PO Q6H PRN PRN Reason: Heartburn/Nausea Aspirin (Aspirin Enteric Coated 81 Mg Tablet.Dr) 81 mg PO DAILY [facility] Last Admin: 06/11/24 08:06 Dose: 81 mg Lorazepam (Lorazepam 0.5 Mg Tablet) 0.5 mg PO BID PRN PRN Reason: agitation/sleep Last Admin: 06/11/24 00:25 Dose: 0.5 mg Magnesium Hydroxide (Milk Of Magnesia 30 Ml Oral.Susp) 30 ml PO DAILY PRN PRN Reason: Constipation Olanzapine (Olanzapine 2.5 Mg Tablet) 2.5 mg PO DAILY@1600 [facility] Last Admin: 06/10/24 15:28 Dose: 2.5 mg Propranolol HCl (Propranolol Hcl 10 Mg Tablet) 2.5 mg PO DAILY@1100 [facility]; Protocol Last Admin: 06/11/24 11:43 Dose: 2.5 mg Sertraline HCl (Sertraline Hcl 50 Mg Tablet) 50 mg PO DAILY [facility] Last Admin: 06/11/24 08:06 Dose: 50 mg Allergies Allergies Allergy/AdvReac Type Severity Reaction Status Date / Time ciprofloxacin Allergy Unknown Verified 05/18/24 09:00 codeine Allergy Unknown Verified 05/18/24 09:00 haloperidol [From Haldol] Allergy Unknown Verified 05/18/24 09:00 oxycodone Allergy Unknown Verified 05/18/24 09:00 risedronate sodium Allergy Unknown Verified 05/18/24 09:00 [From Actonel] tetracycline Allergy Unknown Verified 05/18/24 09:00 trazodone Allergy Unknown Verified 05/18/24 09:00 macrobid AdvReac Severe transaminit Uncoded 05/31/24 14:01 is Assessment & Plan Assessment & Plan (1) Major neurocognitive disorder: Status: Acute Code(s): F03.90 - Unspecified dementia, unspecified severity, without behavioral disturbance, psychotic disturbance, mood disturbance, and anxiety Plan Mrs. Dennison is a 78 year-old woman with hx of dementia, advanced at this time who initially was brought via EMS from [facility] due to combative behaviors s/s to dementia. She was [facility] and transfer to medical floor due to transaminitis which seem to be related to medications or atypical viral infection although hep panel was negative. LFT are tending down. Will hold for now starting new medication. Pt presents as more alert, and able to walk. She is eating well. PLAN 05/29 started sertraline 25mg po daily 05/30 will schedule low dose of olanzapine 2.5mg po BID for combative behaviors mostly in evening. will check LFT on 05/31. 05/31 continue tx. pending urine culture. 06/01 restless at night. during the day calmer, tremolous, sensitive to effect on antipsychotic. urine culture positive for gram johanna amy- started on bactrim DS- monitor LFTs. 06/02 continue tx. cmp ordered today to monitor LFTs. 06/03 continue tx. started propanolol 5mg po daily for tremors. monitor BP/ HR with addition of propanolol and effectiveness. 06/04: Ativan 0.5 mg BID PRN rather than QD PRN. 06/05: continue current management and treatment plan. 06/06 continue tx. propanolol was held due to low BP. 06/08 will change propanolol for night or midday 06/09 off 1:1 on CO, more steady ambulation. may d/c propanolol as BP runs low. 06/11: calm, pleasant. word salad, but appears comfortable and in a good humor. continue current mgmt. Reason for continued inpatient stay Substantial Risk for: inability to function Time Spent With Patient Time: Total time managing care of this patient today ____ minutes.
[2024-06-11] MEDS: OLANZapine 2.5 MG TABLET PO (16:23)
[2024-06-11 20:00] VITALS: BP 139/59; PULSE 55; RESP 16; TEMP 36.6; O2SAT 96
[2024-06-12 08:00] VITALS: BP 148/63; PULSE 62; RESP 14; TEMP 36.8; O2SAT 96
[2024-06-12] MEDS: Aspirin Enteric Coated 81 MG TABLET.DR PO (08:22)
[2024-06-12] MEDS: Sertraline HCL 50 MG TABLET PO (08:23)
[2024-06-12 11:30] VITALS: BP 134/60; PULSE 68
[2024-06-12] MEDS: Propranolol HCL 10 MG TABLET 2.5 MG PO (11:30)
--- NOTE | 2024-06-12 13:56 | HO.PSYCHPN ---
Subjective Subjective Date of Service: 06/12/24 Reason For Visit: Combative Behavior Interim History: no complaints or requests. per staff, poor sleep. confused. A&O x1. Mental Status Exam Mental Status Exam Narrative: Appearance: casually groomed, thin, good hygiene, in NAD Behavior: calm, pleasant Psychomotor: no agitation or retardation noted Speech: mumbles at times, regular rate, spontaneous TP: aphasia TC: word salad Mood: good Affect: smiles VH/AH: no signs Delusions: confabulation Insight/judgment: impaired x 2. memory/cog: alert, not oriented to place, month or year nor situation. severe cognitive impairments. Diagnostics Vital Signs (24Hr): Vital Signs - 24 hr 06/11/24 20:00 06/12/24 08:00 06/12/24 11:30 Temperature 97.9 F 98.2 F Pulse Rate 55 62 68 Respiratory Rate 16 14 Blood Pressure 139/59 L 148/63 H 134/60 Pulse Oximetry 96 96 Oxygen Delivery Method Room Air Room Air BMI result Body Mass Index 20.3 Labs 06/06/24 15:07 Medications Medications Current Medications Acetaminophen (Acetaminophen 325 Mg Tablet) 650 mg PO Q6H PRN PRN Reason: Headache/Pain, Scale 1-10 Last Admin: 06/11/24 00:25 Dose: 650 mg Al Hydroxide/Mg Hydroxide (Magnesium Hydrox/Alum Hydrox 30 Ml Oral.Susp) 30 ml PO Q6H PRN PRN Reason: Heartburn/Nausea Aspirin (Aspirin Enteric Coated 81 Mg Tablet.Dr) 81 mg PO DAILY [facility] Last Admin: 06/12/24 08:22 Dose: 81 mg Lorazepam (Lorazepam 0.5 Mg Tablet) 0.5 mg PO BID PRN PRN Reason: agitation/sleep Last Admin: 06/11/24 00:25 Dose: 0.5 mg Magnesium Hydroxide (Milk Of Magnesia 30 Ml Oral.Susp) 30 ml PO DAILY PRN PRN Reason: Constipation Olanzapine (Olanzapine 2.5 Mg Tablet) 2.5 mg PO DAILY@1600 [facility] Last Admin: 06/11/24 16:23 Dose: 2.5 mg Propranolol HCl (Propranolol Hcl 10 Mg Tablet) 2.5 mg PO DAILY@1100 [facility]; Protocol Last Admin: 06/12/24 11:30 Dose: 2.5 mg Sertraline HCl (Sertraline Hcl 50 Mg Tablet) 50 mg PO DAILY [facility] Last Admin: 06/12/24 08:23 Dose: 50 mg Allergies Allergies Allergy/AdvReac Type Severity Reaction Status Date / Time ciprofloxacin Allergy Unknown Verified 05/18/24 09:00 codeine Allergy Unknown Verified 05/18/24 09:00 haloperidol [From Haldol] Allergy Unknown Verified 05/18/24 09:00 oxycodone Allergy Unknown Verified 05/18/24 09:00 risedronate sodium Allergy Unknown Verified 05/18/24 09:00 [From Actonel] tetracycline Allergy Unknown Verified 05/18/24 09:00 trazodone Allergy Unknown Verified 05/18/24 09:00 macrobid AdvReac Severe transaminit Uncoded 05/31/24 14:01 is Assessment & Plan Assessment & Plan (1) Major neurocognitive disorder: Status: Acute Code(s): F03.90 - Unspecified dementia, unspecified severity, without behavioral disturbance, psychotic disturbance, mood disturbance, and anxiety Plan Mrs. Dennison is a 78 year-old woman with hx of dementia, advanced at this time who initially was brought via EMS from [facility] due to combative behaviors s/s to dementia. She was admitted [facility] and transfer to medical floor due to transaminitis which seem to be related to medications or atypical viral infection although hep panel was negative. LFT are tending down. Will hold for now starting new medication. Pt presents as more alert, and able to walk. She is eating well. PLAN 05/29 started sertraline 25mg po daily 05/30 will schedule low dose of olanzapine 2.5mg po BID for combative behaviors mostly in evening. will check LFT on 05/31. 05/31 continue tx. pending urine culture. 06/01 restless at night. during the day calmer, tremolous, sensitive to effect on antipsychotic. urine culture positive for gram johanna amy- started on bactrim DS- monitor LFTs. 06/02 continue tx. cmp ordered today to monitor LFTs. 06/03 continue tx. started propanolol 5mg po daily for tremors. monitor BP/ HR with addition of propanolol and effectiveness. 06/04: Ativan 0.5 mg BID PRN rather than QD PRN. 06/05: continue current management and treatment plan. 06/06 continue tx. propanolol was held due to low BP. 06/08 will change propanolol for night or midday 06/09 off 1:1 on CO, more steady ambulation. may d/c propanolol as BP runs low. 06/11: calm, pleasant. word salad, but appears comfortable and in a good humor. continue current mgmt. 06/12: recheck lytes due to borderline K and elevated BUN at last check. otherwise stable and continue current mgmt. Reason for continued inpatient stay Substantial Risk for: inability to function Time Spent With Patient Time: Total time managing care of this patient today ____ minutes.
[2024-06-12 15:22] LABS: Anion Gap 12 (12-20); Blood Urea Nitrogen 23 mg/dL (9-16); Calcium 10.3 mg/dL (8.4-10.2); Carbon Dioxide 27 mmol/L (22-29); Chloride 104 mmol/L (96-108); Creatinine Clr Calc Pharmacy 41.4; Estimated Glomerular Filt Rate 59; Glucose Random 115 mg/dL (60-115); Potassium 4.6 mmol/L (3.3-5.1); Sodium 138 mmol/L (135-145)
[2024-06-12] MEDS: OLANZapine 2.5 MG TABLET PO (16:08)
[2024-06-12 20:11] VITALS: BP 143/64; PULSE 66; TEMP 36.9; O2SAT 96
[2024-06-12] MEDS: LORazepam 0.5 MG TABLET PO (20:25)
[2024-06-12] MEDS: Milk of Magnesia 30 ML ORAL.SUSP PO (23:42)
[2024-06-13] MEDS: Aspirin Enteric Coated 81 MG TABLET.DR PO (08:56)
[2024-06-13] MEDS: Sertraline HCL 50 MG TABLET PO (08:56)
[2024-06-13 09:37] VITALS: BP 119/58; PULSE 75; RESP 18; TEMP 36.4; O2SAT 98
--- NOTE | 2024-06-13 09:48 | HO.PSYCHPN ---
Subjective Subjective Date of Service: 06/13/24 Reason For Visit: Combative Behavior Interim History: Pt slept through the night. She is now on 5 minutes checks. No combative behaviors. She is taking medications as prescribed. No behavioral concerns. VS stable. Review of Systems Review of Systems Yes Unobtainable due to mental status Mental Status Exam Mental Status Exam Narrative: Appearance: casually groomed, thin, good hygiene, in NAD Behavior: calm, pleasant Psychomotor: no agitation or retardation noted Speech: mumbles at times, regular rate, spontaneous TP: aphasia TC:difficult to understand Mood: good Affect: smiles VH/AH: no signs Delusions: confabulation Insight/judgment: impaired x 2. memory/cog: alert, not oriented to place, month or year nor situation. severe cognitive impairments. Diagnostics Vital Signs (24Hr): Vital Signs - 24 hr 06/12/24 11:30 06/12/24 20:11 06/13/24 09:37 Temperature 98.4 F 97.5 F Pulse Rate 68 66 75 Respiratory Rate 18 Blood Pressure 134/60 143/64 H 119/58 L Pulse Oximetry 96 98 Oxygen Delivery Method Room Air Room Air BMI result Body Mass Index 20.3 Labs 06/12/24 14:37 Labs: Laboratory Results - last 48 hr 06/12/24 14:37 Sodium 138 Potassium 4.6 Chloride 104 Carbon Dioxide 27 Anion Gap 12 BUN 23 H Creatinine 0.92 Estim Creat Clear Calc 41.4 Estimated GFR 59 Random Glucose 115 Calcium 10.3 H Medications Medications Current Medications Acetaminophen (Acetaminophen 325 Mg Tablet) 650 mg PO Q6H PRN PRN Reason: Headache/Pain, Scale 1-10 Last Admin: 06/11/24 00:25 Dose: 650 mg Al Hydroxide/Mg Hydroxide (Magnesium Hydrox/Alum Hydrox 30 Ml Oral.Susp) 30 ml PO Q6H PRN PRN Reason: Heartburn/Nausea Aspirin (Aspirin Enteric Coated 81 Mg Tablet.Dr) 81 mg PO DAILY [facility] Last Admin: 06/13/24 08:56 Dose: 81 mg Lorazepam (Lorazepam 0.5 Mg Tablet) 0.5 mg PO BID PRN PRN Reason: agitation/sleep Last Admin: 06/12/24 20:25 Dose: 0.5 mg Magnesium Hydroxide (Milk Of Magnesia 30 Ml Oral.Susp) 30 ml PO DAILY PRN PRN Reason: Constipation Last Admin: 06/12/24 23:42 Dose: 30 ml Olanzapine (Olanzapine 2.5 Mg Tablet) 2.5 mg PO DAILY@1600 [facility] Last Admin: 06/12/24 16:08 Dose: 2.5 mg Sertraline HCl (Sertraline Hcl 50 Mg Tablet) 50 mg PO DAILY [facility] Last Admin: 06/13/24 08:56 Dose: 50 mg Allergies Allergies Allergy/AdvReac Type Severity Reaction Status Date / Time ciprofloxacin Allergy Unknown Verified 05/18/24 09:00 codeine Allergy Unknown Verified 05/18/24 09:00 haloperidol [From Haldol] Allergy Unknown Verified 05/18/24 09:00 oxycodone Allergy Unknown Verified 05/18/24 09:00 risedronate sodium Allergy Unknown Verified 05/18/24 09:00 [From Actonel] tetracycline Allergy Unknown Verified 05/18/24 09:00 trazodone Allergy Unknown Verified 05/18/24 09:00 macrobid AdvReac Severe transaminit Uncoded 05/31/24 14:01 is Assessment & Plan Assessment & Plan (1) Major neurocognitive disorder: Status: Acute Code(s): F03.90 - Unspecified dementia, unspecified severity, without behavioral disturbance, psychotic disturbance, mood disturbance, and anxiety Plan Mrs. Dennison is a 78 year-old woman with hx of dementia, advanced at this time who initially was brought via EMS from [facility] due to combative behaviors s/s to dementia. She was [facility] and transfer to medical floor due to transaminitis which seem to be related to medications or atypical viral infection although hep panel was negative. LFT are tending down. Will hold for now starting new medication. Pt presents as more alert, and able to walk. She is eating well. PLAN 05/29 started sertraline 25mg po daily 05/30 will schedule low dose of olanzapine 2.5mg po BID for combative behaviors mostly in evening. will check LFT on 05/31. 05/31 continue tx. pending urine culture. 06/01 restless at night. during the day calmer, tremolous, sensitive to effect on antipsychotic. urine culture positive for gram johanna amy- started on bactrim DS- monitor LFTs. 06/02 continue tx. cmp ordered today to monitor LFTs. 06/03 continue tx. started propanolol 5mg po daily for tremors. monitor BP/ HR with addition of propanolol and effectiveness. 06/04: Ativan 0.5 mg BID PRN rather than QD PRN. 06/05: continue current management and treatment plan. 06/06 continue tx. propanolol was held due to low BP. 06/08 will change propanolol for night or midday 06/09 off 1:1 on CO, more steady ambulation. may d/c propanolol as BP runs low. 06/10 continue tx. pt on CO, may be able to transition to 5 minuts check is steady on feet. No combative behaviors. 06/13 5 minutes check for safety. No behavioral concerns. d/c propanolol due to low bp. Reason for continued inpatient stay Substantial Risk for: inability to function Time Spent With Patient Time: Total time managing care of this patient today ____ minutes.
[2024-06-13] MEDS: OLANZapine 2.5 MG TABLET PO (18:09)
[2024-06-13 20:00] VITALS: BP 142/63; PULSE 50; RESP 16; TEMP 36.6; O2SAT 99
[2024-06-14 08:05] VITALS: BP 107/53; PULSE 60; RESP 18; TEMP 36.5; O2SAT 97
[2024-06-14] MEDS: Sertraline HCL 50 MG TABLET PO (08:12)
[2024-06-14] MEDS: Aspirin Enteric Coated 81 MG TABLET.DR PO (08:12)
--- NOTE | 2024-06-14 10:18 | HO.PSYCHPN ---
Subjective Subjective Date of Service: 06/14/24 Reason For Visit: Combative Behavior Subjective Notes: Conditional Voluntary Interim History: Pt slept through the night. She is now on 5 minutes checks, will try 15 minutes check. No combative behaviors. She is taking medications as prescribed. No behavioral concerns. VS stable. Review of Systems Review of Systems Yes Unobtainable due to mental status Mental Status Exam Mental Status Exam Narrative: Appearance: casually groomed, thin, good hygiene, in NAD Behavior: calm, pleasant Psychomotor: no agitation or retardation noted Speech: mumbles at times, regular rate, spontaneous TP: aphasia TC:difficult to understand Mood: good Affect: smiles VH/AH: no signs Delusions: confabulation Insight/judgment: impaired x 2. memory/cog: alert, not oriented to place, month or year nor situation. severe cognitive impairments. Diagnostics Vital Signs (24Hr): Vital Signs - 24 hr 06/13/24 20:00 06/14/24 08:05 Temperature 97.9 F 97.7 F Pulse Rate 50 60 Respiratory Rate 16 18 Blood Pressure 142/63 H 107/53 L Pulse Oximetry 99 97 Oxygen Delivery Method Room Air Room Air BMI result Body Mass Index 20.3 Labs 06/15/24 07:45 06/15/24 07:44 Labs: Laboratory Results - last 48 hr 06/12/24 14:37 Sodium 138 Potassium 4.6 Chloride 104 Carbon Dioxide 27 Anion Gap 12 BUN 23 H Creatinine 0.92 Estim Creat Clear Calc 41.4 Estimated GFR 59 Random Glucose 115 Calcium 10.3 H Medications Medications Current Medications Acetaminophen (Acetaminophen 325 Mg Tablet) 650 mg PO Q6H PRN PRN Reason: Headache/Pain, Scale 1-10 Last Admin: 06/11/24 00:25 Dose: 650 mg Al Hydroxide/Mg Hydroxide (Magnesium Hydrox/Alum Hydrox 30 Ml Oral.Susp) 30 ml PO Q6H PRN PRN Reason: Heartburn/Nausea Aspirin (Aspirin Enteric Coated 81 Mg Tablet.Dr) 81 mg PO DAILY [facility] Last Admin: 06/14/24 08:12 Dose: 81 mg Lorazepam (Lorazepam 0.5 Mg Tablet) 0.5 mg PO BID PRN PRN Reason: agitation/sleep Last Admin: 06/12/24 20:25 Dose: 0.5 mg Magnesium Hydroxide (Milk Of Magnesia 30 Ml Oral.Susp) 30 ml PO DAILY PRN PRN Reason: Constipation Last Admin: 06/12/24 23:42 Dose: 30 ml Olanzapine (Olanzapine 2.5 Mg Tablet) 2.5 mg PO DAILY@1600 [facility] Last Admin: 06/13/24 18:09 Dose: 2.5 mg Sertraline HCl (Sertraline Hcl 50 Mg Tablet) 50 mg PO DAILY [facility] Last Admin: 06/14/24 08:12 Dose: 50 mg Allergies Allergies Allergy/AdvReac Type Severity Reaction Status Date / Time ciprofloxacin Allergy Unknown Verified 05/18/24 09:00 codeine Allergy Unknown Verified 05/18/24 09:00 haloperidol [From Haldol] Allergy Unknown Verified 05/18/24 09:00 oxycodone Allergy Unknown Verified 05/18/24 09:00 risedronate sodium Allergy Unknown Verified 05/18/24 09:00 [From Actonel] tetracycline Allergy Unknown Verified 05/18/24 09:00 trazodone Allergy Unknown Verified 05/18/24 09:00 macrobid AdvReac Severe transaminit Uncoded 05/31/24 14:01 is Assessment & Plan Assessment & Plan (1) Major neurocognitive disorder: Status: Acute Code(s): F03.90 - Unspecified dementia, unspecified severity, without behavioral disturbance, psychotic disturbance, mood disturbance, and anxiety Plan Mrs. Dennison is a 78 year-old woman with hx of dementia, advanced at this time who initially was brought via EMS from [facility] due to combative behaviors s/s to dementia. She was admitted to [facility] and transfer to medical floor due to transaminitis which seem to be related to medications or atypical viral infection although hep panel was negative. LFT are tending down. Will hold for now starting new medication. Pt presents as more alert, and able to walk. She is eating well. PLAN 05/29 started sertraline 25mg po daily 05/30 will schedule low dose of olanzapine 2.5mg po BID for combative behaviors mostly in evening. will check LFT on 05/31. 05/31 continue tx. pending urine culture. 06/01 restless at night. during the day calmer, tremolous, sensitive to effect on antipsychotic. urine culture positive for gram johanna amy- started on bactrim DS- monitor LFTs. 06/02 continue tx. cmp ordered today to monitor LFTs. 06/03 continue tx. started propanolol 5mg po daily for tremors. monitor BP/ HR with addition of propanolol and effectiveness. 06/04: Ativan 0.5 mg BID PRN rather than QD PRN. 06/05: continue current management and treatment plan. 06/06 continue tx. propanolol was held due to low BP. 06/08 will change propanolol for night or midday 06/09 off 1:1 on CO, more steady ambulation. may d/c propanolol as BP runs low. 06/10 continue tx. pt on CO, may be able to transition to 5 minuts check is steady on feet. No combative behaviors. 06/13 5 minutes check for safety. No behavioral concerns. d/c propanolol due to low bp. 06/14 continue tx Reason for continued inpatient stay Substantial Risk for: inability to function Time Spent With Patient Time: Total time managing care of this patient today ____ minutes.
[2024-06-14] MEDS: OLANZapine 2.5 MG TABLET PO (15:28)
[2024-06-14] MEDS: LORazepam 0.5 MG TABLET PO (18:03)
[2024-06-14 18:55] VITALS: BP 144/65; PULSE 88; RESP 18; TEMP 37; O2SAT 98
--- NOTE | 2024-06-14 19:13 | PC.NURSE ---
At approximately 18:50, staff overheard a loud bang in Brianna's room, when staff entered room Brianna was found sitting on the floor between the two beds. She appeared anxious and when this feature writer asked if she hit her head she answered nonsensically. Brianna's speech is nonsensical and disorganized at baseline. Vitals stable (see EMR), no observable mental status changes, changes in ROM, or injury noted. She was assisted to bed by staff. Provider Nelli Nolan and machine assembler supervisor Martell Willingham notified. Head CT, neuros, and hospitalist consult ordered.
[2024-06-14 19:19] VITALS: BP 144/65; PULSE 88; RESP 18; TEMP 37; O2SAT 98
[2024-06-14 20:00] VITALS: BP 118/56; PULSE 71; RESP 16; TEMP 36.4; O2SAT 94
--- NOTE | 2024-06-14 20:58 | HO.PM.IMCN ---
History of Present Illness Data of Consult Service Date: 06/14/24 Requesting physician: Khurram Live Primary Care Provider: Unknown Physician HPI Reason for consult: fall Patient is a 78-year-old female with a past medical history significant for Alzheimer's dementia, HLD and PVD admitted on [facility] for increased agitation and aggressive behavior. A consultation was placed due to an unwitnessed fall. It was reported that they heard a loud thud and found the patient between the beds on the floor. She was anxious and did not respond sensically, however this has been her baseline. She has been able to ambulate normally, moving all extremities and is not reporting nay pain. She does not report any headache, shortness of breath, chest pain or neurological deficits at this time. She is a very difficult historian due to her Alzheimer's dementia, her speech is difficult to understand as she mumbles nonsencially, but again this is her baseline per nursing staff. Review of Systems Review of Systems: Yes Unobtainable due to mental status [facility] Medical History PVD (peripheral vascular disease) Diabetes Diverticulosis Hyperlipidemia HTN (hypertension) UTI (urinary tract infection) Dementia Social History Household Members: Other Housing: Detention Do you presently have visiting nurse or other home services: No Comment: 1:1 Patient Tobacco Use Status: Former Tobacco user Tobacco use type: Cigarette Currently Displaying Signs/Symptoms of Drug Intoxication Withdrawal: No Advance Directives: No Advance Directives Information Provided: No Do you have thoughts of harming others: None Do you have a plan to hurt others: No Plan service: No Sexual orientation: Straight/Heterosexual Meds Allergies Allergy/AdvReac Type Severity Reaction Status Date / Time ciprofloxacin Allergy Unknown Verified 05/18/24 09:00 codeine Allergy Unknown Verified 05/18/24 09:00 haloperidol [From Haldol] Allergy Unknown Verified 05/18/24 09:00 oxycodone Allergy Unknown Verified 05/18/24 09:00 risedronate sodium Allergy Unknown Verified 05/18/24 09:00 [From Actonel] tetracycline Allergy Unknown Verified 05/18/24 09:00 trazodone Allergy Unknown Verified 05/18/24 09:00 macrobid AdvReac Severe transaminit Uncoded 05/31/24 14:01 is Active Medications: Current Medications Acetaminophen (Acetaminophen 325 Mg Tablet) 650 mg PO Q6H PRN PRN Reason: Headache/Pain, Scale 1-10 Last Admin: 06/11/24 00:25 Dose: 650 mg Al Hydroxide/Mg Hydroxide (Magnesium Hydrox/Alum Hydrox 30 Ml Oral.Susp) 30 ml PO Q6H PRN PRN Reason: Heartburn/Nausea Aspirin (Aspirin Enteric Coated 81 Mg Tablet.) 81 mg PO DAILY [facility] Last Admin: 06/14/24 08:12 Dose: 81 mg Lorazepam (Lorazepam 0.5 Mg Tablet) 0.5 mg PO BID PRN PRN Reason: agitation/sleep Last Admin: 06/14/24 18:03 Dose: 0.5 mg Magnesium Hydroxide (Milk Of Magnesia 30 Ml Oral.Susp) 30 ml PO DAILY PRN PRN Reason: Constipation Last Admin: 06/12/24 23:42 Dose: 30 ml Olanzapine (Olanzapine 2.5 Mg Tablet) 2.5 mg PO DAILY@1600 [facility] Last Admin: 06/14/24 15:28 Dose: 2.5 mg Sertraline HCl (Sertraline Hcl 50 Mg Tablet) 50 mg PO DAILY [facility] Last Admin: 06/14/24 08:12 Dose: 50 mg Home Medications ?Medication ?Instructions ?Recorded ?Confirmed ?Last Taken ?Type aspirin 81 mg capsule 81 mg PO DAILY 05/18/24 05/26/24 Unknown History bisacodyl 10 mg rectal suppository 10 mg HI DAILY PRN Constipation 05/18/24 05/26/24 Unknown History cyanocobalamin (vitamin B-12) 1,000 mcg PO DAILY Supplement 05/18/24 05/26/24 Unknown History 1,000 mcg tablet magnesium hydroxide 400 mg/5 mL 30 ml PO DAILY PRN Constipation 05/18/24 05/26/24 Unknown History oral suspension (Milk of Magnesia) multivitamin with minerals 1 cap PO DAILY 05/18/24 05/26/24 Unknown History naloxone 4 mg/actuation nasal 4 mg intranasal Q3M PRN Opiate 05/18/24 05/26/24 Unknown History spray (Narcan) Reversal amlodipine 5 mg tablet 5 mg PO DAILY 05/29/24 05/29/24 Unknown History atorvastatin 20 mg tablet 20 mg PO DAILY 05/29/24 05/29/24 Unknown History divalproex 250 mg tablet,delayed 250 mg PO BID 05/29/24 05/29/24 Unknown History release donepezil 5 mg tablet 5 mg PO DAILY 05/29/24 05/29/24 Unknown History mirtazapine 15 mg tablet 15 mg PO BEDTIME 05/29/24 05/29/24 Unknown History quetiapine 25 mg tablet 25 mg PO BEDTIME 05/29/24 05/29/24 Unknown History Physical Exam Vital Signs and Narrative: Vital Signs: Last Vital Signs Temp 97.5 F 06/14/24 20:00 Pulse 71 06/14/24 20:00 Resp 16 06/14/24 20:00 BP 118/56 L 06/14/24 20:00 Pulse Ox 94 06/14/24 20:00 O2 Del Method Room Air 06/14/24 20:00 BMI result Body Mass Index 20.3 General: Alert, unable to determine orientation due to nonsensical responses, no acute distress Resp: CTA bilaterally CVS: RRR +murmur GI: +BS, NT, no distention Skin: Warm, dry Neuro: PERRL, 4/5 bilteral upper extremity strength. did not understand the rest of the exam. Motor grossly intact bilaterally Extremities: No LE edema Psych: nonsensical responses Results Labs 06/12/24 14:37 Assessment and Plan (1) Unwitnessed fall: Status: Acute Plan Patient is a 78-year-old female with a past medical history significant for Alzheimer's dementia, HLD and PVD admitted [facility] for increased agitation and aggressive behavior. A consultation was placed due to an unwitnessed fall. Unwitnessed fall - vital signs stable - pt neurologically at her baseline - head CT negative for hemorrhage or acute findings - continue neuro checks Q2H overnight Thank you for allowing me to participate in the pt's care. Signing off for now. Please contact the medical team if any questions or concerns.
[2024-06-14 22:23] VITALS: BP 111/58; PULSE 86; RESP 18; TEMP 36.4; O2SAT 96
--- NOTE | 2024-06-15 06:53 | PC.NURSE ---
Patient is s/p unwitnessed fall on 06/14 at 18:50, alert and responsive alert her baseline, neuro status was monitored q 2h and intact. Patient complained of sharp R quadrant pain this morning upon waking up. call center assistant provider Nelli Nolan and hospitalist Sugar Bernal notified. will continue to monitor.
[2024-06-15 07:50] LABS: MANUAL DIFF FLAG NO
[2024-06-15 07:52] LABS: Basophils Percent Auto 0.3 % (0-2); Eosinophils Percent Auto 0.3 % (0-4); Hematocrit 38.3 % (37.0-47.0); Hemoglobin 12.8 g/dl (12.0-16.0); Imm Gran Abs Auto 0.03 X10*3/uL (0.00-0.03); Imm Gran Pct Auto 0.3 % (0.0-0.4); Lymphocytes Absolute Auto 1.1 X10*3/uL (1.2-4.9); Mean Corpuscular HGB Conc 33.4 g/dl (31.0-35.0); Mean Corpuscular Hemoglobin 30.8 pg (27.0-33.0); Mean Corpuscular Volume 92.3 fL (80.0-98.0); Mean Platelet Volume 9.9 fL (9.4-12.3); Monocytes Absolute Auto 0.8 X10*3/uL (0.1-1.2); Monocytes Percent Auto 8.4 % (2-11); Neutrophils Absolute Auto 7.9 x10*3/uL (2.0-8.3); Neutrophils Percent Auto 79.7 % (45-73); Platelet Count 146 X10*3/uL (160-400); Red Blood Count 4.15 X10*6/uL (4.20-5.50); Red Cell Distribution Width 14.6 % (11.0-16.0)
[2024-06-15 07:54] LABS: Venous Blood Gas Refer to POC result
[2024-06-15 07:55] LABS: VBG Base Excess 6.2 mmol/L; VBG HCO3 31 mmol/L (22-26); VBG pCO2 49 mmHg; VBG pH 7.41 (7.32-7.43); VBG pO2 27 mmHg
[2024-06-15 08:00] VITALS: BP 134/58; PULSE 65; RESP 14; TEMP 36.9; O2SAT 95
[2024-06-15 08:07] LABS: Alanine Aminotransferase 82 U/L (0-31); Albumin Level 3.7 g/dL (3.5-5.0); Alkaline Phosphatase 93 U/L (39-117); Anion Gap 11 (12-20); Aspartate Amino Transferase 71 U/L (5-31); Bilirubin Total 1.2 mg/dL (0.0-1.0); Blood Urea Nitrogen 14 mg/dL (9-16); Calcium 9.5 mg/dL (8.4-10.2); Carbon Dioxide 28 mmol/L (22-29); Chloride 103 mmol/L (96-108); Estimated Glomerular Filt Rate > 60; Glucose Random 108 mg/dL (60-115); Lipase 22 U/L (8-78); Potassium 4.2 mmol/L (3.3-5.1); Sodium 138 mmol/L (135-145); Total Protein 6.4 g/dL (6.5-8.0)
[2024-06-15] MEDS: Aspirin Enteric Coated 81 MG TABLET.DR PO (08:27)
[2024-06-15] MEDS: Sertraline HCL 50 MG TABLET PO (08:28)
[2024-06-15] MEDS: Acetaminophen 325 MG TABLET 650 MG PO ×2 (08:28→16:38)
[2024-06-15] MEDS: OLANZapine 2.5 MG TABLET PO ×2 (12:55→16:38)
[2024-06-15] MEDS: Milk of Magnesia 30 ML ORAL.SUSP PO (12:55)
--- NOTE | 2024-06-15 13:39 | PC.NURSE ---
Results of CTscan of abd were neg otheer than she has a colon full of feces, she was given MOM. She was also having increased anxiety with wanting to exit. Provider order one time dose of zyprexa which was effective.
--- NOTE | 2024-06-15 14:54 | PM.EVENT ---
Event Note Date of Service: 06/15/24 Event Note: Patient was seen in Follow up post unwitnessed fall. She is reporting right side pain. Rib area. Her CT was normal, The liver is normal in size and contour. Hepatitis panel non reactive in May. Slight elevation in AST/ALT. Bilirubin 1.2. unremarkable unenhanced appearance. CT otherwise unremarkable except for stool burden. LFT's stable, significantly decreased from 1 month ago. Moves all extremities. No increased WOB. Tenderness to right rib area on palpation. No visible brusing. Most likely contusion, Xray to rule out rib fracture. Add Colace BID Time Spent With Patient Time: Total time managing care of this patient today ____ minutes. Exam Const Other: CONST: Alert and oriented, in NAD. Well nourished HEENT: Normocephalic, atraumatic, MMM, Eyes clear, Neck supple RESP: Lungs clear, RRR even and regular HEART:,RRR, S1, S2. No murmur, no edema GI:Abdomen Soft NT, ND. + BS times four :Deferred SKIN: Warm dry and intact, no visible lesions or rashes NEURO:CN II-XII Intact bilaterally, Sensation intact. Speech clear PSYCH: Normal affect Musculoskelatal: Tenderness to Right flank, rib area
--- NOTE | 2024-06-15 16:50 | P.PNPSI_ITS ---
Subjective Subjective Date of Service: 06/15/24 Reason For Visit: Combative Behavior Subjective Notes: Conditional Voluntary Healthcare Proxy: Yes Interim History: Pt felt last evening seen by hospitalist at the time. She had head CT which was negative for hemorrhage. No neurological changes since. She does report pain on right side, seen by hospitalist, chest XR shows minimally displaced acute fractures of right ribs 5 and 6 anterolaterally. It appears she had fall after taking ativan 0.5mg, will discontinue it. She presents as pleasant, does not remember falling, denies any pain although noted she is leaning towards left side. She was slightly more anxious later in the day, given one time dose of olanzapine 2.5mg,. will schedule tramadol 25mg po qhs for pain and discuss with hospitalist pain management. Review of Systems Review of Systems Yes Unobtainable due to mental status Mental Status Exam Mental Status Exam Narrative: Appearance: casually groomed, thin, good hygiene, in NAD Behavior: calm, pleasant Psychomotor: no agitation or retardation noted Speech: mumbles at times, regular rate, spontaneous TP: aphasia TC:difficult to understand Mood: good Affect: smiles VH/AH: no signs Delusions: confabulation Insight/judgment: impaired x 2. memory/cog: alert, not oriented to place, month or year nor situation. severe cognitive impairments. Diagnostics Vital Signs (24Hr): Vital Signs - 24 hr 06/14/24 18:55 06/14/24 19:19 06/14/24 20:00 Temperature 98.6 F 98.6 F 97.5 F Pulse Rate 88 88 71 Respiratory Rate 18 18 16 Blood Pressure 144/65 H 144/65 H 118/56 L Pulse Oximetry 98 98 94 Oxygen Delivery Method Room Air Room Air 06/14/24 22:23 06/15/24 08:00 Temperature 97.5 F 98.4 F Pulse Rate 86 65 Respiratory Rate 18 14 Blood Pressure 111/58 L 134/58 L Pulse Oximetry 96 95 Oxygen Delivery Method Room Air Room Air BMI result Body Mass Index 20.3 Labs 06/15/24 07:45 06/15/24 07:44 Labs: Laboratory Results - last 48 hr 06/15/24 06/15/24 06/15/24 07:44 07:45 07:50 WBC 10.0 RBC 4.15 L Hgb 12.8 Hct 38.3 MCV 92.3 MCH 30.8 MCHC 33.4 RDW 14.6 Plt Count 146 L MPV 9.9 Immature Gran % (Auto) 0.3 Neut % (Auto) 79.7 H Lymph % (Auto) 11.0 L [place] % (Auto) 8.4 Eos % (Auto) 0.3 Baso % (Auto) 0.3 Lymph # (Auto) 1.1 L [place] # (Auto) 0.8 Eos # (Auto) 0.0 Baso # (Auto) 0.0 Abs Immat Gran (auto) 0.03 Absolute Neuts (auto) 7.9 Absolute Nucleated RBC 0.000 Nucleated RBC % (auto) 0.0 VBG pH 7.41 VBG pCO2 49 VBG pO2 27 VBG HCO3 31 H VBG O2 Saturation 34.0 VBG Base Excess 6.2 Sodium 138 Potassium 4.2 Chloride 103 Carbon Dioxide 28 Anion Gap 11 L BUN 14 Creatinine 0.68 Estim Creat Clear Calc 56.0 Estimated GFR > 60 Random Glucose 108 Calcium 9.5 D Total Bilirubin 1.2 H AST 71 H ALT 82 H Alkaline Phosphatase 93 Total Protein 6.4 L Albumin 3.7 Lipase 22 Imaging Radiology Impressions: ITS Impressions Abdomen/Pelvis CT 06/15/24 11:26 IMPRESSION: Moderate to large amount of stool in the descending and sigmoid colon. Electronically signed by: Juan Vasques MD 06/15/2024 12:36 PM EDT Ribs X-Ray 06/15/24 15:30 IMPRESSION: Findings suggesting acute fractures of the anterior lateral right fifth and sixth ribs. Clear lungs with no pneumothorax or effusion. Electronically signed by: Marcelino Feliz MD 06/15/2024 03:47 PM EDT Medications Medications Current Medications Acetaminophen (Acetaminophen 325 Mg Tablet) 650 mg PO Q6H PRN PRN Reason: Headache/Pain, Scale 1-10 Last Admin: 06/15/24 16:38 Dose: 650 mg Al Hydroxide/Mg Hydroxide (Magnesium Hydrox/Alum Hydrox 30 Ml Oral.Susp) 30 ml PO Q6H PRN PRN Reason: Heartburn/Nausea Aspirin (Aspirin Enteric Coated 81 Mg Tablet.Dr) 81 mg PO DAILY [facility] Last Admin: 06/15/24 08:27 Dose: 81 mg Docusate Sodium (Docusate Sodium 100 Mg Capsule) 100 mg PO BID [facility] Lorazepam (Lorazepam 0.5 Mg Tablet) 0.5 mg PO BID PRN PRN Reason: agitation/sleep Last Admin: 06/14/24 18:03 Dose: 0.5 mg Magnesium Hydroxide (Milk Of Magnesia 30 Ml Oral.Susp) 30 ml PO DAILY PRN PRN Reason: Constipation Last Admin: 06/15/24 12:55 Dose: 30 ml Mineral Oil (Mineral Oil Enema 133 Ml Enema) 133 ml DE Q1H PRN PRN Reason: Constipation Olanzapine (Olanzapine 2.5 Mg Tablet) 2.5 mg PO DAILY@1600 [facility] Last Admin: 06/15/24 16:38 Dose: 2.5 mg Sertraline HCl (Sertraline Hcl 50 Mg Tablet) 50 mg PO DAILY [facility] Last Admin: 06/15/24 08:28 Dose: 50 mg Allergies Allergies Allergy/AdvReac Type Severity Reaction Status Date / Time ciprofloxacin Allergy Unknown Verified 05/18/24 09:00 codeine Allergy Unknown Verified 05/18/24 09:00 haloperidol [From Haldol] Allergy Unknown Verified 05/18/24 09:00 oxycodone Allergy Unknown Verified 05/18/24 09:00 risedronate sodium Allergy Unknown Verified 05/18/24 09:00 [From Actonel] tetracycline Allergy Unknown Verified 05/18/24 09:00 trazodone Allergy Unknown Verified 05/18/24 09:00 macrobid AdvReac Severe transaminit Uncoded 05/31/24 14:01 is Assessment & Plan Assessment & Plan (1) Major neurocognitive disorder: Status: Acute Code(s): F03.90 - Unspecified dementia, unspecified severity, without behavioral disturbance, psychotic disturbance, mood disturbance, and anxiety Plan Mrs. Dennison is a 78 year-old woman with hx of dementia, advanced at this time who initially was brought via EMS from [facility] due to combative behaviors s/s to dementia. She was admitted to [facility] and transfer to medical floor due to transaminitis which seem to be related to medications or atypical viral infection although hep panel was negative. LFT are tending down. Will hold for now starting new medication. Pt presents as more alert, and able to walk. She is eating well. PLAN 05/29 started sertraline 25mg po daily 05/30 will schedule low dose of olanzapine 2.5mg po BID for combative behaviors mostly in evening. will check LFT on 05/31. 05/31 continue tx. pending urine culture. 06/01 restless at night. during the day calmer, tremolous, sensitive to effect on antipsychotic. urine culture positive for gram johanna amy- started on bactrim DS- monitor LFTs. 06/02 continue tx. cmp ordered today to monitor LFTs. 06/03 continue tx. started propanolol 5mg po daily for tremors. monitor BP/ HR with addition of propanolol and effectiveness. 06/04: Ativan 0.5 mg BID PRN rather than QD PRN. 06/05: continue current management and treatment plan. 06/06 continue tx. propanolol was held due to low BP. 06/08 will change propanolol for night or midday 06/09 off 1:1 on CO, more steady ambulation. may d/c propanolol as BP runs low. 06/10 continue tx. pt on CO, may be able to transition to 5 minuts check is steady on feet. No combative behaviors. 06/13 5 minutes check for safety. No behavioral concerns. d/c propanolol due to low bp. 06/14 continue tx 06/15 sustained a fall day prior, rib XR shows minimally displaced acute fractures of right ribs 5 and 6 anterolaterally. No pneumothorax. no changes in mentation. scheduled tramadol 25mg po qhs. d/c ativan Reason for continued inpatient stay Substantial Risk for: inability to function Time Spent With Patient Time: Total time managing care of this patient today ____ minutes.
--- NOTE | 2024-06-15 17:03 | PC.NURSE ---
CXR results revealed she fx her 5th and 6th rib on her right side, Son was called and updated, [employer]ilities Repairer made aware, and provider updated. Give dose of Tylenol. Will try giving tramadol for HS for pain management.
[2024-06-15 20:00] VITALS: BP 118/58; PULSE 56; RESP 16; TEMP 36.6; O2SAT 95
[2024-06-15] MEDS: traMADoL HCL 50 MG TABLET 25 MG PO (20:14)
[2024-06-15] MEDS: Docusate Sodium 100 MG CAPSULE PO (20:14)
[2024-06-16] MEDS: OLANZapine 2.5 MG TABLET PO ×3 (03:20→16:36)
[2024-06-16] MEDS: Acetaminophen 325 MG TABLET 650 MG PO ×2 (03:20→16:36)
[2024-06-16 08:00] VITALS: BP 131/62; PULSE 63; RESP 14; TEMP 36.8; O2SAT 98
[2024-06-16] MEDS: Aspirin Enteric Coated 81 MG TABLET.DR PO (08:42)
[2024-06-16] MEDS: Sertraline HCL 50 MG TABLET PO (08:42)
[2024-06-16] MEDS: Docusate Sodium 100 MG CAPSULE PO ×2 (08:42→19:58)
--- NOTE | 2024-06-16 16:07 | HO.PSYCHPN ---
Subjective Subjective Date of Service: 06/16/24 Reason For Visit: Combative Behavior Subjective Notes: Conditional Voluntary Healthcare Proxy: Yes Interim History: Pt somewhat restless last night, received olanzapine 2.5mg. during the day she has been ambulating, eating well. She does not remember falling. denies pain but noted weight shifted to left side post fall right rib fracture. She appears pleasant, smiling. No behavioral concerns. Medication Compliance: Yes Review of Systems Review of Systems Yes Unobtainable due to mental status Mental Status Exam Mental Status Exam Narrative: Appearance: casually groomed, thin, good hygiene, in NAD Behavior: calm, pleasant Psychomotor: no agitation or retardation noted Speech: mumbles at times, regular rate, spontaneous TP: aphasia TC:difficult to understand Mood: good Affect: smiles VH/AH: no signs Delusions: confabulation Insight/judgment: impaired x 2. memory/cog: alert, not oriented to place, month or year nor situation. severe cognitive impairments. Diagnostics Vital Signs (24Hr): Vital Signs - 24 hr 06/15/24 20:00 06/16/24 08:00 Temperature 97.9 F 98.2 F Pulse Rate 56 63 Respiratory Rate 16 14 Blood Pressure 118/58 L 131/62 Pulse Oximetry 95 98 Oxygen Delivery Method Room Air Room Air BMI result Body Mass Index 20.3 Labs 06/15/24 07:45 06/15/24 07:44 Labs: Laboratory Results - last 48 hr 06/15/24 06/15/24 06/15/24 07:44 07:45 07:50 WBC 10.0 RBC 4.15 L Hgb 12.8 Hct 38.3 MCV 92.3 MCH 30.8 MCHC 33.4 RDW 14.6 Plt Count 146 L MPV 9.9 Immature Gran % (Auto) 0.3 Neut % (Auto) 79.7 H Lymph % (Auto) 11.0 L [place] % (Auto) 8.4 Eos % (Auto) 0.3 Baso % (Auto) 0.3 Lymph # (Auto) 1.1 L [place] # (Auto) 0.8 Eos # (Auto) 0.0 Baso # (Auto) 0.0 Abs Immat Gran (auto) 0.03 Absolute Neuts (auto) 7.9 Absolute Nucleated RBC 0.000 Nucleated RBC % (auto) 0.0 VBG pH 7.41 VBG pCO2 49 VBG pO2 27 VBG HCO3 31 H VBG O2 Saturation 34.0 VBG Base Excess 6.2 Sodium 138 Potassium 4.2 Chloride 103 Carbon Dioxide 28 Anion Gap 11 L BUN 14 Creatinine 0.68 Estim Creat Clear Calc 56.0 Estimated GFR > 60 Random Glucose 108 Calcium 9.5 D Total Bilirubin 1.2 H AST 71 H ALT 82 H Alkaline Phosphatase 93 Total Protein 6.4 L Albumin 3.7 Lipase 22 Imaging Radiology Impressions: ITS Impressions Abdomen/Pelvis CT 06/15/24 11:26 IMPRESSION: Moderate to large amount of stool in the descending and sigmoid colon. Electronically signed by: Juan Vasques MD 06/15/2024 12:36 PM EDT RP Ribs X-Ray 06/15/24 15:30 IMPRESSION: Findings suggesting acute fractures of the anterior lateral right fifth and sixth ribs. Clear lungs with no pneumothorax or effusion. Electronically signed by: Marcelino Feliz MD 06/15/2024 03:47 PM EDT RP Medications Medications Current Medications Acetaminophen (Acetaminophen 325 Mg Tablet) 650 mg PO Q6H PRN PRN Reason: Headache/Pain, Scale 1-10 Last Admin: 06/16/24 03:20 Dose: 650 mg Al Hydroxide/Mg Hydroxide (Magnesium Hydrox/Alum Hydrox 30 Ml Oral.Susp) 30 ml PO Q6H PRN PRN Reason: Heartburn/Nausea Aspirin (Aspirin Enteric Coated 81 Mg Tablet.Dr) 81 mg PO DAILY [facility] Last Admin: 06/16/24 08:42 Dose: 81 mg Docusate Sodium (Docusate Sodium 100 Mg Capsule) 100 mg PO BID [facility] Last Admin: 06/16/24 08:42 Dose: 100 mg Magnesium Hydroxide (Milk Of Magnesia 30 Ml Oral.Susp) 30 ml PO DAILY PRN PRN Reason: Constipation Last Admin: 06/15/24 12:55 Dose: 30 ml Melatonin (Melatonin 3 Mg Tablet) 6 mg PO BEDTIME [facility] Mineral Oil (Mineral Oil Enema 133 Ml Enema) 133 ml [place] Q1H PRN PRN Reason: Constipation Olanzapine (Olanzapine 2.5 Mg Tablet) 2.5 mg PO DAILY@1600 [facility] Last Admin: 06/15/24 16:38 Dose: 2.5 mg Olanzapine (Olanzapine 2.5 Mg Tablet) 2.5 mg PO DAILY PRN PRN Reason: agitation/severe anxiety Last Admin: 06/16/24 03:20 Dose: 2.5 mg Sertraline HCl (Sertraline Hcl 50 Mg Tablet) 50 mg PO DAILY [facility] Last Admin: 06/16/24 08:42 Dose: 50 mg Tramadol HCl (Tramadol Hcl 50 Mg Tablet) 25 mg PO BEDTIME [facility] Last Admin: 06/15/24 20:14 Dose: 25 mg Allergies Allergies Allergy/AdvReac Type Severity Reaction Status Date / Time ciprofloxacin Allergy Unknown Verified 05/18/24 09:00 codeine Allergy Unknown Verified 05/18/24 09:00 haloperidol [From Haldol] Allergy Unknown Verified 05/18/24 09:00 oxycodone Allergy Unknown Verified 05/18/24 09:00 risedronate sodium Allergy Unknown Verified 05/18/24 09:00 [From Actonel] tetracycline Allergy Unknown Verified 05/18/24 09:00 trazodone Allergy Unknown Verified 05/18/24 09:00 macrobid AdvReac Severe transaminit Uncoded 05/31/24 14:01 is Assessment & Plan Assessment & Plan (1) Major neurocognitive disorder: Status: Acute Code(s): F03.90 - Unspecified dementia, unspecified severity, without behavioral disturbance, psychotic disturbance, mood disturbance, and anxiety Plan Mrs. Dennison is a 78 year-old woman with hx of dementia, advanced at this time who initially was brought via EMS from [facility] due to combative behaviors s/s to dementia. She was admitted to [facility] and transfer to medical floor due to transaminitis which seem to be related to medications or atypical viral infection although hep panel was negative. LFT are tending down. Will hold for now starting new medication. Pt presents as more alert, and able to walk. She is eating well. PLAN 05/29 started sertraline 25mg po daily 05/30 will schedule low dose of olanzapine 2.5mg po BID for combative behaviors mostly in evening. will check LFT on 05/31. 05/31 continue tx. pending urine culture. 06/01 restless at night. during the day calmer, tremolous, sensitive to effect on antipsychotic. urine culture positive for gram johanna amy- started on bactrim DS- monitor LFTs. 06/02 continue tx. cmp ordered today to monitor LFTs. 06/03 continue tx. started propanolol 5mg po daily for tremors. monitor BP/ HR with addition of propanolol and effectiveness. 06/04: Ativan 0.5 mg BID PRN rather than QD PRN. 06/05: continue current management and treatment plan. 06/06 continue tx. propanolol was held due to low BP. 06/08 will change propanolol for night or midday 06/09 off 1:1 on CO, more steady ambulation. may d/c propanolol as BP runs low. 06/10 continue tx. pt on CO, may be able to transition to 5 minuts check is steady on feet. No combative behaviors. 06/13 5 minutes check for safety. No behavioral concerns. d/c propanolol due to low bp. 06/14 continue tx 06/15 sustained a fall day prior, rib XR shows minimally displaced acute fractures of right ribs 5 and 6 anterolaterally. No pneumothorax. no changes in mentation. scheduled tramadol 25mg po qhs. d/c ativan 06/16 continue tx. Reason for continued inpatient stay Substantial Risk for: inability to function Time Spent With Patient Time: Total time managing care of this patient today ____ minutes.
--- NOTE | 2024-06-16 17:11 | PC.NURSE ---
Brianna has finally had results from [facility] given yesterday
[2024-06-16] MEDS: Melatonin 3 MG TABLET 6 MG PO (19:58)
[2024-06-16] MEDS: traMADoL HCL 50 MG TABLET 25 MG PO (19:58)
[2024-06-16 20:00] VITALS: BP 97/48; PULSE 58; RESP 18; TEMP 36.6; O2SAT 95
[2024-06-17 08:20] VITALS: BP 135/62; PULSE 62; RESP 18; TEMP 36.8; O2SAT 97
[2024-06-17] MEDS: Sertraline HCL 50 MG TABLET PO (08:25)
[2024-06-17] MEDS: Aspirin Enteric Coated 81 MG TABLET.DR PO (08:25)
[2024-06-17] MEDS: Docusate Sodium 100 MG CAPSULE PO (08:25)
[2024-06-17 09:08] VITALS: BMI 20.4
--- NOTE | 2024-06-17 09:55 | P.DS_ITS ---
DS: Providers Provider Date of Service: 06/17/24 Date of admission: 05/27/24 17:15 Date of discharge: 06/17/24 Primary care physician: Unknown Physician Consults: 06/14/24 19:05 Consult to Hospitalist Routine Comment: Consulting Provider: [facility] Hospitalists Reason For Exam: unwitnessed fall 06/15/24 06:47 Consult to Hospitalist Routine Comment: Consulting Provider: [facility] Hospitalists Reason For Exam: sharp pain in abdomen RUQ DS: Diagnosis Discharge Diagnosis (1) Major neurocognitive disorder: Status: Acute DS: Medications Discharge Medications Home Medications: Home Medications ?Medication ?Instructions ?Recorded ?Confirmed aspirin 81 mg capsule 81 mg PO DAILY 05/18/24 05/26/24 bisacodyl 10 mg rectal suppository 10 mg [place] DAILY PRN Constipation 05/18/24 05/26/24 cyanocobalamin (vitamin B-12) 1,000 mcg PO DAILY Supplement 05/18/24 05/26/24 1,000 mcg tablet magnesium hydroxide 400 mg/5 mL 30 ml PO DAILY PRN Constipation 05/18/24 05/26/24 oral suspension (Milk of Magnesia) multivitamin with minerals 1 cap PO DAILY 05/18/24 05/26/24 naloxone 4 mg/actuation nasal 4 mg intranasal Q3M PRN Opiate 05/18/24 05/26/24 spray (Narcan) Reversal amlodipine 5 mg tablet 5 mg PO DAILY 05/29/24 05/29/24 atorvastatin 20 mg tablet 20 mg PO DAILY 05/29/24 05/29/24 divalproex 250 mg tablet,delayed 250 mg PO BID 05/29/24 05/29/24 release donepezil 5 mg tablet 5 mg PO DAILY 05/29/24 05/29/24 mirtazapine 15 mg tablet 15 mg PO BEDTIME 05/29/24 05/29/24 quetiapine 25 mg tablet 25 mg PO BEDTIME 05/29/24 05/29/24 Previous Rx's ?Medication ?Instructions ?Recorded aluminum-magnesium hydroxide 200 30 ml PO Q6H PRN Heartburn/Nausea 05/25/24 mg-200 mg/5 mL oral suspension #0 mL (MAG-AL) melatonin 3 mg tablet 9 mg (3 x 3 mg) PO BEDTIME PRN 05/25/24 Insomnia #0 tabs sodium phosphates 19 gram-7 133 ml GA DAILY PRN CONSTIPATION 05/25/24 gram/118 mL enema (Fleet Enema) #0 mL Mental Status Exam Mental Status Exam Narrative: Appearance: casually groomed, thin, good hygiene, in NAD Behavior: calm, pleasant Psychomotor: no agitation or retardation noted Speech: mumbles at times, regular rate, spontaneous TP: aphasia TC:difficult to understand Mood: good Affect: smiles VH/AH: no signs Delusions: confabulation Insight/judgment: impaired x 2. memory/cog: alert, not oriented to place, month or year nor situation. severe cognitive impairments. Data Data Completed and Pending Completed studies during hospitalization [Text1]: 06/12/24 06/15/24 06/15/24 14:37 07:44 07:45 WBC 10.0 RBC 4.15 L Hgb 12.8 Hct 38.3 MCV 92.3 MCH 30.8 MCHC 33.4 RDW 14.6 Plt Count 146 L MPV 9.9 Immature Gran % (Auto) 0.3 Neut % (Auto) 79.7 H Lymph % (Auto) 11.[address] [place] % (Auto) 8.4 Eos % (Auto) 0.3 Baso % (Auto) 0.3 Lymph # (Auto) 1.[address] [place] # (Auto) 0.8 Eos # (Auto) 0.0 Baso # (Auto) 0.0 Abs Immat Gran (auto) 0.03 Absolute Neuts (auto) 7.9 Absolute Nucleated RBC 0.000 Nucleated RBC % (auto) 0.0 VBG pH VBG pCO2 VBG pO2 VBG HCO3 VBG O2 Saturation VBG Base Excess Sodium 138 138 Potassium 4.6 4.2 Chloride 104 103 Carbon Dioxide 27 28 Anion Gap 12 11 L BUN 23 H 14 Creatinine 0.92 0.68 Estim Creat Clear Calc 41.4 56.0 Estimated GFR 59 > 60 Random Glucose 115 108 Calcium 10.3 H 9.5 D Total Bilirubin 1.2 H AST 71 H ALT 82 H Alkaline Phosphatase 93 Total Protein 6.4 L Albumin 3.7 Lipase 22 06/15/24 07:50 WBC RBC Hgb Hct MCV MCH MCHC RDW Plt Count MPV Immature Gran % (Auto) Neut % (Auto) Lymph % (Auto) [place] % (Auto) Eos % (Auto) Baso % (Auto) Lymph # (Auto) [place] # (Auto) Eos # (Auto) Baso # (Auto) Abs Immat Gran (auto) Absolute Neuts (auto) Absolute Nucleated RBC Nucleated RBC % (auto) VBG pH 7.41 VBG pCO2 49 VBG pO2 27 VBG HCO3 31 H VBG O2 Saturation 34.0 VBG Base Excess 6.2 Sodium Potassium Chloride Carbon Dioxide Anion Gap BUN Creatinine Estim Creat Clear Calc Estimated GFR Random Glucose Calcium Total Bilirubin AST ALT Alkaline Phosphatase Total Protein Albumin Lipase 05/30/24 12:15 Urine clean catch - Clean Catch Midstream Urine Culture - Final Enterobacter cloacae complex Imaging Diagnostic Imaging Impressions Abdomen/Pelvis CT 06/15/24 11:26 IMPRESSION: Moderate to large amount of stool in the descending and sigmoid colon. Electronically signed by: Juan Vasques MD 06/15/2024 12:36 PM EDT RP Ribs X-Ray 06/15/24 15:30 IMPRESSION: Findings suggesting acute fractures of the anterior lateral right fifth and sixth ribs. Clear lungs with no pneumothorax or effusion. Electronically signed by: Marcelino Feliz MD 06/15/2024 03:47 PM EDT RP DS: Summary Hospital Course Hospital Course: Mrs. Dennison is 78 year-old woman with dementia who brought from [facility] initially on 05/18/2024 due to increase combative behaviors, entering to other people's room, intrusive and increase aggression. In the ED, pertinent labs include CBC without leukocytosis, no anemia. CMP without electrolyte abnormalities, BUN 15, Cr 0.69, creatinine clearance 55.8. AST 34, ALT 23, ammonia 23, UA with nitrite, leukocytes and bacteria. She was started on macrobid 05/18/2024. Subsequently transferred to geriatric psych unit for stabilization of combative behaviors secondary to dementia and at the time superimposed delirium related to UTI. Pt was also started on low dose of risperidone on 05/20/2024. LFT noted to start going up on 05/19/2024. Pt was transferred from [facility] to medical floor due to transaminitis as high as in 700's. Pt was seen by gastroenterology who reported that culprit could be related to either medications including Macrobid or atypical viral infection although hep panel was negative. Pt's medications including atorvastatin, macrobid and risperidone were discontinued. LFT have been gradually trending down. On the unit, pt presents as calm, physically less tired and able to ambulate and eat much better than when she was transferred to the unit. Pt not oriented to place, month year or situation. She has significant expressive and receptive aphasia. Past Psychiatric History: Inpt: none OP: none Medical Evaluation Reviewed: Yes HOSPITAL COURSE On the unit, pt was admitted on a CV signed by HCP. She was initially on close observation due to risk for fall. She was slowly restarted on medication for mood dysregulation secondary to dementia. She was started on low dose of olanzapine 2.5mg po at around 1pm. She was also started on sertraline for mood. She had even prior to starting olonazapine action tremors, suspect this to be a vascular tremors. She was trialed on propanolol but even low doses brought BP down therefore it was d/juan j. She was gradually more visible, smiling, less anxious. She was sleeping and eating better. Her BP was stable, not orthostatic. She had unwitnessed fall on 06/14 evening. She sustain a right rib fracture 5 and 6th minimally displaced, no pneumothorax or plural effusion. Given tendency to have elevated LFTs related to medication, caution with tylenol for pain management. She was given tramadol 25mg po at night. she continued to ambulate well. denied pain. Status at Discharge Cognitive/behavioral status at discharge: Pt with brighter less anxious mood. no combative behaviors. No SI/HI. No psyc hosis. confabulation due to severe dementia. Functional status at discharge: independent ambulation Overall status at discharge: patient is back to baseline Time Spent with Patient Time attestation: Total time managing care of this patient today __35__ minutes. Time spent: Greater than 30 minutes Discharge Plan Discharge Anticipated Discharge Date/Time: 06/17/24 09:55 Patient Disposition: Home, Self-Care Discharge Diagnosis: major Neurocognitive Disorder Discharge Medications: New olanzapine 2.5 mg Tablet 2.5 mg PO DAILY@1600 Qty: 30 0RF olanzapine 2.5 mg Tablet 2.5 mg PO DAILY PRN (Reason: agitation/severe anxiety) Qty: 0 0RF aspirin 81 mg Tablet,Delayed Release (Dr/Ec) 81 mg PO DAILY Qty: 0 0RF sertraline 50 mg Tablet 50 mg PO DAILY Qty: 0 0RF tramadol 25 mg tablet 25 mg PO TID PRN (Reason: rib fracture pain) Qty: 20 0RF melatonin 3 mg Tablet 6 mg PO BEDTIME Qty: 0 0RF docusate sodium 100 mg Capsule 100 mg PO BID Qty: 0 0RF Continued multivitamin with minerals Capsule 1 cap PO DAILY Discontinued quetiapine 25 mg tablet 25 mg PO BEDTIME atorvastatin 20 mg tablet 20 mg PO DAILY donepezil 5 mg tablet 5 mg PO DAILY divalproex 250 mg tablet,delayed release (DR/EC) 250 mg PO BID amlodipine 5 mg tablet 5 mg PO DAILY mirtazapine 15 mg tablet 15 mg PO BEDTIME cyanocobalamin (vitamin B-12) 1,000 mcg Tablet 1,000 mcg PO DAILY bisacodyl 10 mg Suppository 10 mg GA DAILY PRN (Reason: Constipation) Rx Instructions: For no BM if M.O.M ineffective. aspirin 81 mg Capsule 81 mg PO DAILY magnesium hydroxide [Milk of Magnesia] 400 mg/5 mL Suspension 30 ml PO DAILY PRN (Reason: Constipation) naloxone [Narcan] 4 mg/actuation [place],Non-Aerosol 4 mg INTRANASAL Q3M PRN (Reason: Opiate Reversal) Rx Instructions: spray 1 dose into ONE nostril; alternate nostrils w each dose until help arrives melatonin 3 mg Tablet 9 mg PO BEDTIME PRN (Reason: Insomnia) Qty: 0 0RF Fleet Enema 19-7 gram/118 mL Enema 133 ml [place] DAILY PRN (Reason: CONSTIPATION) Qty: 0 0RF MAG-AL 200-200 mg/5 mL Suspension 30 ml PO Q6H PRN (Reason: Heartburn/Nausea) Qty: 0 0RF Discharge Orders: Discharge Order (Routine); Ordered 06/17/24 Ordered By: Kenzie Chang Diet: Regular diet Activity on Discharge: As tolerated Stand Alone Forms: Patient Portal Discharge page Print Language: Yi Care Plan Goals: 1. maintain mood 2. no SI/HI 3. no aggression towards self or others Health Concerns: Follow up with PCP Plan of Treatment: 1. Take medications as prescribed 2. Go to nearest ED or call 911 in event of emergency Assessment: Pt with brighter, less anxious affect. No SI/HI. No VH/AH. not oriented to place, month, year or situation. sleeping and eating well.
== END 2024-06-17 11:47 | disposition home or self-care (01) | DRG 57 ==
PROVIDERS: Psychiatry & Neurology Psychiatry; Social Worker; Student in an Organized Health Care Education/Training Program; Admitting Provider Psychiatry & Neurology Psychiatry; Visit Provider Psychiatry & Neurology Psychiatry
DX: G30.9 Alzheimer's disease, unspecified (principal); N39.0 Urinary tract infection, site not specified; F02.818 Dementia in other diseases classified elsewhere, unspecified severity, with other behavioral disturbance; E78.5 Hyperlipidemia, unspecified; W19.XXXA Unspecified fall, initial encounter; E11.51 Type 2 diabetes mellitus with diabetic peripheral angiopathy without gangrene; Z87.891 Personal history of nicotine dependence; Z79.82 Long term (current) use of aspirin; Z79.899 Other long term (current) drug therapy
CPT/HCPCS: 36415; 70450; 71101; 74176; 80048; 80053; 80061; 82306; 82310; 82607; 82746; 82803; 83036; 83690; 83970; 84443; 85025; 87086; 87088; 87186

== ENCOUNTER 2024-05-27 17:15 | Outpatient (BNV) | payer MEDICARE, SELFPAY | END 2024-06-15 06:47 | PROVIDERS: Admitting Provider Psychiatry & Neurology Psychiatry; Visit Provider Radiology Diagnostic Radiology | DX: K56.41 Fecal impaction (principal); R07.81 Pleurodynia; W19.XXXA Unspecified fall, initial encounter | CPT/HCPCS: 71101; 74176 ==

== ENCOUNTER → 2024-05-27 17:15 | Outpatient (BNV) | payer MEDICARE, SELFPAY | PROVIDERS: Admitting Provider Psychiatry & Neurology Psychiatry; Visit Provider Physician Assistant | DX: R29.6 Repeated falls (principal) | CPT/HCPCS: 99222; 99499 ==

== ENCOUNTER → 2024-05-27 17:15 | Outpatient (BNV) | payer MEDICARE, SELFPAY | PROVIDERS: Admitting Provider Psychiatry & Neurology Psychiatry; Visit Provider Social Worker | DX: F03.90 Unspecified dementia, unspecified severity, without behavioral disturbance, psychotic disturbance, mood disturbance, and anxiety (principal) | CPT/HCPCS: 90792; 99231; 99232 ==